=== PATIENT | female | born 1940 | race Caucasian/White ===

== ENCOUNTER 2018-02-19 15:48 | Inpatient (IN) | payer MEDICARE ==
[~2018-02-19] VITALS: Ht 157.5 cm; Wt 90.9 kg
[2018-02-19] MEDS ORDERED: HYDR-971 PO (17:35)
[2018-02-19] MEDS ORDERED: POTA20TA4 PO (17:35)
[2018-02-19] MEDS ORDERED: CALC-30 PO (17:35)
[2018-02-19] MEDS ORDERED: ACET500T68 PO (17:35)
[2018-02-19] MEDS ORDERED: FURO20TA3 PO (17:35)
[2018-02-19] MEDS ORDERED: TOPI25TA7 PO (17:35)
[2018-02-19] MEDS ORDERED: ASPI-630 PO (17:35)
[2018-02-19] MEDS ORDERED: ACET650S11 RC (17:35)
[2018-02-19] MEDS ORDERED: LISI-334 PO (17:35)
[2018-02-19] MEDS ORDERED: OMEP20CA9 PO (17:35)
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
[2018-02-19 17:55] VITALS: BP 129/80
[2018-02-19] MEDS ORDERED: METHYL SALICYLATE/MENTHOL TOPICAL OINTMENT 29GM TUBE. TP PRN (18:30)
[2018-02-19] MEDS ORDERED: MAG HYDROX/AL HYDROX/SIMETH 30 ML ORAL.SUSP PO PRN (18:30)
[2018-02-19] MEDS ORDERED: ACETAMINOPHEN 325 MG TABLET PO PRN (18:30)
[2018-02-19] MEDS ORDERED: MAGNESIUM HYDROXIDE 2,400 MG/30 ML ORAL.SUSP. PO PRN (18:30)
[2018-02-19] MEDS ORDERED: ACETAMINOPHEN 500 MG TABLET PO PRN (19:15)
[2018-02-19] MEDS ORDERED: ACETAMINOPHEN 650 MG SUPP.RECT. PR PRN (19:15)
--- NOTE | 2018-02-19 20:00 | NUR ---
Behavior Intervention Response and Plan: BIRP Note: Behavior: Assumed Care of patient, patient located in Hallway at shift change. Patient exhibited the following behavior Wandering, Interactive, Calm. Brief assessment on rounds of vital signs, medication needs, lab studies, and pain. Treatment plan problems . Intervention: Patient assessed and the following interventions initiated safety checks 15 Minute Checks Cognitive Assessment , Head to toe Assessment , Medications. Response: After interactions and interventions patient responded in the following manner, Disorganized , Compliant ,Cooperative. Continue to assess behaviors and condition will continue to monitor throughout the shift as needed. Patient educated on ADL's, and hand hygiene. Plan: Continue to monitor Master Treatment Plan for patient's progress toward short term goals of Decreased Agitation, Decreased Anxiety, halfway goals to return to previous living setting vs placement. Continue to assess patient for changes in above assessment. Monitor for medication needs, pain, and safety concerns. Hourly rounding performed to ensure safe environment.
--- NOTE | 2018-02-19 20:56 | PDOC ---
Exam Note: Sadiq Note: Please also refer to the separate dictated note~for this date of service dictated separately.~Patient seen individually. Discussed the patient with Nursing staff reviewed the chart.~Reviewed interim history and current functioning. Reviewed vital signs,~Labs/ Radiology~and current medications noted below. Continue current treatment with the changes noted in the dictated addendum note Assessment: Vital Signs: Vital Signs Date Time Temp Pulse Resp B/P (MAP) Pulse Ox O2 Delivery O2 Flow Rate FiO2 02/19/18 17:55 98.0 62 20 129/80 (96) 100 Current Medications: Meds: Current Medications Acetaminophen (Tylenol) 650 mg PRN Q6HRS PRN PO PAIN / TEMP; Start 02/19/18 at 18:30; Stop 02/19/18 at 19:01; Status DC Multi-Ingredient Ointment (Analgesic [place]) 1 argelia PRN QID PRN TP MUSCLE PAIN; Start 02/19/18 at 18:30 Al Hydroxide/Mg Hydroxide (Mylanta Plus Xs) 15 ml PRN AFTMEALHC PRN PO DYSPEPSIA; Start 02/19/18 at 18:30 Magnesium Hydroxide (Milk Of Magnesia) 2,400 mg PRN QHS PRN PO CONSTIPATION; Start 02/19/18 at 18:30 Furosemide (Lasix) 20 mg DAILY PO ; Start 02/20/18 at 09:00 Lisinopril (Prinivil) 20 mg DAILY PO ; Start 02/20/18 at 09:00 Potassium Chloride (Klor-Con) 20 meq DAILY PO ; Start 02/20/18 at 09:00 Acetaminophen (Tylenol) 500 mg PRN Q6HRS PRN PO PAIN / TEMP; Start 02/19/18 at 19:15 Acetaminophen (Tylenol) 650 mg PRN Q6HRS PRN DC PAIN / TEMP; Start 02/19/18 at 19:15 Aspirin (Children'S Aspirin) 81 mg DAILYWBKFT PO ; Start 02/20/18 at 08:00 Calcium/Vitamin D (Oscal D 500mg/ 200uts) 1 tab DAILYWBKFT PO ; Start 02/20/18 at 08:00 Acetaminophen/ Hydrocodone Bitart (Lortab 5/325) 1 tab PRN Q6HRS PRN PO PAIN; Start 02/20/18 at 00:00 Pantoprazole Sodium (Protonix) 40 mg DAILYAC PO ; Start 02/20/18 at 07:30 Topiramate (Topamax) 75 mg BID PO ; Start 02/19/18 at 21:00 Active Scripts Active Reported Acetaminophen 500 Mg Tablet 500 Mg PO PRN Q6HRS PRN Acetaminophen Supp (Acetaminophen) 650 Mg Supp.rect 650 Mg RC PRN Q6HRS PRN [place] 5-325 Tablet (Hydrocodone Bit/Acetaminophen) 1 Each Tablet 1 Tab PO Q6HRS Klor-Con M20 (Potassium Chloride) 20 Meq Tab.er.prt 20 Meq PO DAILY Furosemide 20 Mg Tablet 20 Mg PO DAILY Lisinopril 20 Mg Tablet 20 Mg PO DAILY Calcium 500 + Vit D 400 Tablet (Calcium Carbonate/Vitamin D3) 1 Each Tablet 1 Each PO DAILY Aspirin 81 Mg Tab.chew 81 Mg PO DAILY Omeprazole 20 Mg Capsule.dr 20 Mg PO DAILY Topiramate 25 Mg Tablet 75 Mg PO BID I have reviewed the current psychotropics carefully including drug interactions. Risk benefit ratio favors no change other than as noted in my dictated progress note. KARO SANTOS MD February 19, 2018 20:56
[2018-02-19] MEDS: TOPIRAMATE 25 MG TABLET. PO SCH (21:20)
[2018-02-20] MEDS ORDERED: HYDROcodone/APAP 5/325MG 1 TAB TABLET PO PRN
[2018-02-20 06:46] VITALS: BP 110/53
[2018-02-20 07:39] LABS: ALBUMIN 3.4 g/dL (3.4-5.0); ALBUMIN/GLOBULIN RATIO 0.9 (1.0-1.7); CALCIUM 8.7 mg/dL (8.5-10.1); GFR 53.8; POTASSIUM 4.2 mmol/L (3.5-5.1); TOTAL BILIRUBIN 0.3 mg/dL (0.2-1.0)
[2018-02-20 07:53] LABS: BASO % 1 % (0-3); EOS # 0.2 x10^3/uL (0.0-0.7); EOS % 4 % (0-3); HEMATOCRIT 33.6 % (36.0-47.0); LYMPH # 1.9 x10^3/uL (1.0-4.8); LYMPH % 36 % (24-48); MEAN CORPUSCULAR HEMOGLOBIN 31 pg (25-35); MEAN CORPUSCULAR HGB CONC 33 g/dL (31-37); MEAN CORPUSCULAR VOLUME 95 fL (79-100); MONO # 0.5 x10^3/uL (0.0-1.1); MONO % 9 % (0-9); NEUT # 2.6 x10^3uL (1.8-7.7); NEUT % 50 % (31-73); PLATELET COUNT 158 x10^3/uL (140-400); RED BLOOD COUNT 3.55 x10^6/uL (3.50-5.40); RED CELL DISTRIBUTION WIDTH 14.8 % (11.5-14.5); WHITE BLOOD COUNT 5.1 x10^3/uL (4.0-11.0)
[2018-02-20] MEDS: CALCIUM CARB/VIT D3 500/200 TABLET PO SCH (09:02)
[2018-02-20] MEDS: ASPIRIN 81 MG TAB.CHEW PO SCH (09:03)
[2018-02-20] MEDS: PANTOPRAZOLE 40 MG TABLET. PO SCH (09:03)
[2018-02-20] MEDS: LISINOPRIL 20 MG TABLET PO SCH (09:03)
[2018-02-20] MEDS: POTASSIUM CHLORIDE 20 MEQ TABLET.ER. PO SCH (09:03)
[2018-02-20] MEDS: FUROSEMIDE 20 MG TABLET PO SCH (09:03)
[2018-02-20] MEDS: TOPIRAMATE 25 MG TABLET. PO SCH ×2 (09:04→20:54)
[2018-02-20 13:28] LABS: THYROID STIM HORMONE (TSH) 0.254 uIU/mL (0.358-3.740)
--- NOTE | 2018-02-20 14:10 | NUR ---
Psychosocial Assessment completed w/pt's granddtr, [place]. Pt was born and raised in [place] w/3 siblings. Pt has 1 brother w/Parkinson's. 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 Pt and her first , having 2 children w/him. She then her current named Arsenio and had 2 children w/ him also. Pt has no history of alcohol, substance abuse, SI or HI. Pt began exhibiting memory loss in 2009 when she was diagnosed w/Dementia. 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 Pt transitioned into [facility] in 03/2017 and will return at [facility]. GOALS: medications adjustments to for behavior management. 1. Family support 2. Community support
--- NOTE | 2018-02-20 15:07 | NUR ---
Behavior Intervention Response and Plan: BIRP Note: Behavior: Assumed Care of patient, patient located in Hallway at shift change. Patient exhibited the following behavior Wandering, Interactive, Calm. Brief assessment on rounds of vital signs, medication needs, lab studies, and pain. Treatment plan problems . Intervention: Patient assessed and the following interventions initiated safety checks 15 Minute Checks Cognitive Assessment , Head to toe Assessment , Medications. Response: After interactions and interventions patient responded in the following manner, Disorganized , Compliant ,Calm. Continue to assess behaviors and condition will continue to monitor throughout the shift as needed. Patient educated on ADL's, and hand hygiene. Plan: Continue to monitor Master Treatment Plan for patient's progress toward short term goals of Decreased Agitation, Decreased Anxiety, halfway goals to return to previous living setting vs placement. Continue to assess patient for changes in above assessment. Monitor for medication needs, pain, and safety concerns. Hourly rounding performed to ensure safe environment.
[2018-02-20 16:56] VITALS: BP 124/55
[2018-02-20 19:10] LABS: T3 TOTAL 100 ng/dL (71-180); THYROXINE 6.5 ug/dL (4.5-12.0)
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
--- NOTE | 2018-02-20 23:56 | NUR ---
Behavior Intervention Response and Plan: BIRP Note: Behavior: Assumed Care of patient, patient located in Hallway at shift change. Patient exhibited the following behavior Wandering, Exit Seeking, Anxious. Brief assessment on rounds of vital signs, medication needs, lab studies, and pain. Treatment plan problems . Intervention: Patient assessed and the following interventions initiated safety checks 15 Minute Checks Cognitive Assessment , Medications , Oral Hydration. Response: After interactions and interventions patient responded in the following manner, Wandering , Restless ,Exit Seeking. Continue to assess behaviors and condition will continue to monitor throughout the shift as needed. Patient educated on ADL's, and hand hygiene. Plan: Continue to monitor Master Treatment Plan for patient's progress toward short term goals of Decreased Agitation, Decreased Anxiety, senior living goals to return to previous living setting vs placement. Continue to assess patient for changes in above assessment. Monitor for medication needs, pain, and safety concerns. Hourly rounding performed to ensure safe environment.
[2018-02-21 04:08] LABS: HEMOGLOBIN A1C 5.8 % (4.8-5.6)
[2018-02-21 06:46] VITALS: BP 140/80
[2018-02-21] MEDS: FUROSEMIDE 20 MG TABLET PO SCH (08:55)
[2018-02-21] MEDS: POTASSIUM CHLORIDE 20 MEQ TABLET.ER. PO SCH (08:55)
[2018-02-21] MEDS: TOPIRAMATE 25 MG TABLET. PO SCH ×2 (08:56→20:38)
[2018-02-21] MEDS: ASPIRIN 81 MG TAB.CHEW PO SCH (08:56)
[2018-02-21] MEDS: CALCIUM CARB/VIT D3 500/200 TABLET PO SCH (08:56)
[2018-02-21] MEDS: LISINOPRIL 20 MG TABLET PO SCH (08:56)
[2018-02-21] MEDS: PANTOPRAZOLE 40 MG TABLET. PO SCH (08:56)
[2018-02-21] MEDS: SERTRALINE 25 MG TABLET. PO SCH (08:57)
--- NOTE | 2018-02-21 10:00 | NUR ---
Patient sitting in day room, compliant with medications and cooperative with assessment. Oriented to self only. Has a hard time finding words when asked questions/word salad.
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
--- NOTE | 2018-02-21 13:23 | NUR ---
Patient at the window asking for her watch. When advised watch was in the hospital safe, she said "It's not in the tutu" and walked away. Has been disorganized but cooperative with cares today.
--- NOTE | 2018-02-21 14:14 | NUR ---
Behavior Intervention Response and Plan: BIRP Note: Behavior: Assumed Care of patient, patient located in Hallway at shift change. Patient exhibited the following behavior Wandering, Attention Seeking, Compliant. Brief assessment on rounds of vital signs, medication needs, lab studies, and pain. Treatment plan problems 1 and 2. Intervention: Patient assessed and the following interventions initiated safety checks 15 Minute Checks Medications , Head to toe Assessment , Oral Hydration. Response: After interactions and interventions patient responded in the following manner, Interactive , Disorganized ,Cooperative. Continue to assess behaviors and condition will continue to monitor throughout the shift as needed. Patient educated on ADL's, and hand hygiene. 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 Continue to assess patient for changes in above assessment. Monitor for medication needs, pain, and safety concerns. Hourly rounding performed to ensure safe environment.
--- NOTE | 2018-02-21 15:00 | NUR ---
WEEKLY THERAPEUTIC RECREATION NOTE Date of Admission: 02/19/2018 Date of AT Assessment: TBD Goal aimed: TBD Initial Goal: TBD Weekly progress towards goal: NA Group participation level: minimal Behaviors observed: sits quietly, around group and follows along with exercises, looking for her mother at times, social occasionally and mostly pleasant Plan: meet/ assess Pt.
[2018-02-21 16:49] VITALS: BP 101/51
--- NOTE | 2018-02-21 20:17 | PDOC ---
Exam Note: Sadiq Note: Late entry for date of service February 20, 2018. Please also refer to the separate dictated note~for this date of service dictated separately.~Patient seen individually. Discussed the patient with Nursing staff reviewed the chart.~ Reviewed interim history and current functioning. Reviewed vital signs,~Labs/ Radiology~and current medications noted below. Continue current treatment with the changes noted in the dictated addendum note Assessment: Vital Signs: VS - Last 72 Hours, by Label Date Time Temp Pulse Resp B/P (MAP) Pulse Ox O2 Delivery O2 Flow Rate FiO2 02/21/18 16:49 97.6 63 20 101/51 (68) 98 02/21/18 08:56 67 140/80 02/21/18 06:46 97.3 67 20 140/80 (100) 97 02/20/18 16:56 97.8 66 18 124/55 (78) 99 Room Air 02/20/18 09:03 59 110/53 02/20/18 06:46 97.5 59 20 110/53 (72) 96 02/19/18 17:55 98.0 62 20 129/80 (96) 100 Vital Signs Date Time Temp Pulse Resp B/P (MAP) Pulse Ox O2 Delivery O2 Flow Rate FiO2 02/21/18 16:49 97.6 63 20 101/51 (68) 98 02/20/18 16:56 Room Air I&O Intake and Output 02/21/18 07:00 Intake Total 1200 ml Balance 1200 ml Intake Oral 1200 ml Current Medications: Meds: Current Medications Acetaminophen (Tylenol) 650 mg PRN Q6HRS PRN PO PAIN / TEMP; Start 02/19/18 at 18:30; Stop 02/19/18 at 19:01; Status DC Multi-Ingredient Ointment (Analgesic [place]) 1 argelia PRN QID PRN TP MUSCLE PAIN; Start 02/19/18 at 18:30 Al Hydroxide/Mg Hydroxide (Mylanta Plus Xs) 15 ml PRN AFTMEALHC PRN PO DYSPEPSIA; Start 02/19/18 at 18:30 Magnesium Hydroxide (Milk Of Magnesia) 2,400 mg PRN QHS PRN PO CONSTIPATION; Start 02/19/18 at 18:30 Furosemide (Lasix) 20 mg DAILY PO Last administered on 02/21/18at 08:55; Start 02/20/18 at 09:00 Lisinopril (Prinivil) 20 mg DAILY PO Last administered on 02/21/18at 08:56; Start 02/20/18 at 09:00 Potassium Chloride (Klor-Con) 20 meq DAILY PO Last administered on 02/21/18at 08 :55; Start 02/20/18 at 09:00 Acetaminophen (Tylenol) 500 mg PRN Q6HRS PRN PO PAIN / TEMP; Start 02/19/18 at 19:15 Acetaminophen (Tylenol) 650 mg PRN Q6HRS PRN DE PAIN / TEMP; Start 02/19/18 at 19:15 Aspirin (Children'S Aspirin) 81 mg DAILYWBKFT PO Last administered on at 08:56; Start 02/20/18 at 08:00 Calcium/Vitamin D (Oscal D 500mg/ 200uts) 1 tab DAILYWBKFT PO Last administered on 02/21/18at 08:56; Start 02/20/18 at 08:00 Acetaminophen/ Hydrocodone Bitart (Lortab 5/325) 1 tab PRN Q6HRS PRN PO PAIN; Start 02/20/18 at 00:00 Pantoprazole Sodium (Protonix) 40 mg DAILYAC PO Last administered on 02/21/18at 08:56; Start 02/20/18 at 07:30 Topiramate (Topamax) 75 mg BID PO Last administered on 02/21/18at 08:56; Start 02/19/18 at 21:00 Sertraline HCl (Zoloft) 25 mg DAILY PO Last administered on 02/21/18at 08:57; Start 02/21/18 at 09:00 Vitamin D (Vitamin D3) 50,000 unit WEEKLY PO ; Start 02/21/18 at 19:00 Atorvastatin Calcium (Lipitor) 10 mg QHS PO ; Start 02/21/18 at 21:00 Mirtazapine (Remeron) 7.5 mg QHS PO ; Start 02/21/18 at 21:00 Active Scripts Active Reported Acetaminophen 500 Mg Tablet 500 Mg PO PRN Q6HRS PRN Acetaminophen Supp (Acetaminophen) 650 Mg Supp.rect 650 Mg RC PRN Q6HRS PRN [place] 5-325 Tablet (Hydrocodone Bit/Acetaminophen) 1 Each Tablet 1 Tab PO Q6HRS Klor-Con M20 (Potassium Chloride) 20 Meq Tab.er.prt 20 Meq PO DAILY Furosemide 20 Mg Tablet 20 Mg PO DAILY Lisinopril 20 Mg Tablet 20 Mg PO DAILY Calcium 500 + Vit D 400 Tablet (Calcium Carbonate/Vitamin D3) 1 Each Tablet 1 Each PO DAILY Aspirin 81 Mg Tab.chew 81 Mg PO DAILY Omeprazole 20 Mg Capsule.dr 20 Mg PO DAILY Topiramate 25 Mg Tablet 75 Mg PO BID I have reviewed the current psychotropics carefully including drug interactions. Risk benefit ratio favors no change other than as noted in my dictated progress note. Diagnosis: Problems: (1) Anxiety disorder (2) Dementia in Alzheimer's disease with delusions (3) Dementia in Alzheimer's disease with depression (4) Dementia, vascular, with delusions (5) Dementia, vascular, with depression (6) Impulse control disorder KARO SANTOS MD February 21, 2018 20:17
[2018-02-21] MEDS: ATORVASTATIN CALCIUM 10 MG TABLET. PO SCH (20:38)
[2018-02-21] MEDS: MIRTAZAPINE 7.5 MG TABLET. PO SCH (20:38)
[2018-02-21] MEDS: CHOLECALCIFEROL (VITAMIN D3) 50,000 UNIT CAPSULE PO SCH (20:38)
--- NOTE | 2018-02-21 20:41 | PDOC ---
Exam Note: Sadiq Note: Please also refer to the separate dictated note~for this date of service dictated separately.~Patient seen individually. Discussed the patient with Nursing staff reviewed the chart.~Reviewed interim history and current functioning. Reviewed vital signs,~Labs/ Radiology~and current medications noted below. Continue current treatment with the changes noted in the dictated addendum note Assessment: Vital Signs: Vital Signs Date Time Temp Pulse Resp B/P (MAP) Pulse Ox O2 Delivery O2 Flow Rate FiO2 02/21/18 16:49 97.6 63 20 101/51 (68) 98 02/20/18 16:56 Room Air I&O Intake and Output 02/21/18 07:00 Intake Total 1200 ml Balance 1200 ml Intake Oral 1200 ml Current Medications: Meds: Current Medications Acetaminophen (Tylenol) 650 mg PRN Q6HRS PRN PO PAIN / TEMP; Start 02/19/18 at 18:30; Stop 02/19/18 at 19:01; Status DC Multi-Ingredient Ointment (Analgesic [place]) 1 argelia PRN QID PRN TP MUSCLE PAIN; Start 02/19/18 at 18:30 Al Hydroxide/Mg Hydroxide (Mylanta Plus Xs) 15 ml PRN AFTMEALHC PRN PO DYSPEPSIA; Start 02/19/18 at 18:30 Magnesium Hydroxide (Milk Of Magnesia) 2,400 mg PRN QHS PRN PO CONSTIPATION; Start 02/19/18 at 18:30 Furosemide (Lasix) 20 mg DAILY PO Last administered on 02/21/18at 08:55; Start 02/20/18 at 09:00 Lisinopril (Prinivil) 20 mg DAILY PO Last administered on 02/21/18at 08:56; Start 02/20/18 at 09:00 Potassium Chloride (Klor-Con) 20 meq DAILY PO Last administered on 02/21/18at 08 :55; Start 02/20/18 at 09:00 Acetaminophen (Tylenol) 500 mg PRN Q6HRS PRN PO PAIN / TEMP; Start 02/19/18 at 19:15 Acetaminophen (Tylenol) 650 mg PRN Q6HRS PRN [place] PAIN / TEMP; Start 02/19/18 at 19:15 Aspirin (Children'S Aspirin) 81 mg DAILYWBKFT PO Last administered on at 08:56; Start 02/20/18 at 08:00 Calcium/Vitamin D (Oscal D 500mg/ 200uts) 1 tab DAILYWBKFT PO Last administered on 02/21/18 08:56; Start 02/20/18 at 08:00 Acetaminophen/ Hydrocodone Bitart (Lortab 5/325) 1 tab PRN Q6HRS PRN PO PAIN; Start 02/20/18 at 00:00 Pantoprazole Sodium (Protonix) 40 mg DAILYAC PO Last administered on 02/21/18 08:56; Start 02/20/18 at 07:30 Topiramate (Topamax) 75 mg BID PO Last administered on 02/21/18 20:38; Start 02/19/18 at 21:00 Sertraline HCl (Zoloft) 25 mg DAILY PO Last administered on 02/21/18 08:57; Start 02/21/18 at 09:00 Vitamin D (Vitamin D3) 50,000 unit WEEKLY PO Last administered on 02/21/18 20: 38; Start 02/21/18 at 19:00 Atorvastatin Calcium (Lipitor) 10 mg QHS PO Last administered on 02/21/18 20: 38; Start 02/21/18 at 21:00 Mirtazapine (Remeron) 7.5 mg QHS PO Last administered on 02/21/18 20:38; Start 02/21/18 at 21:00 Active Scripts Active Reported Acetaminophen 500 Mg Tablet 500 Mg PO PRN Q6HRS PRN Acetaminophen Supp (Acetaminophen) 650 Mg Supp.rect 650 Mg RC PRN Q6HRS PRN [place] 5-325 Tablet (Hydrocodone Bit/Acetaminophen) 1 Each Tablet 1 Tab PO Q6HRS Klor-Con M20 (Potassium Chloride) 20 Meq Tab.er.prt 20 Meq PO DAILY Furosemide 20 Mg Tablet 20 Mg PO DAILY Lisinopril 20 Mg Tablet 20 Mg PO DAILY Calcium 500 + Vit D 400 Tablet (Calcium Carbonate/Vitamin D3) 1 Each Tablet 1 Each PO DAILY Aspirin 81 Mg Tab.chew 81 Mg PO DAILY Omeprazole 20 Mg Capsule.dr 20 Mg PO DAILY Topiramate 25 Mg Tablet 75 Mg PO BID I have reviewed the current psychotropics carefully including drug interactions. Risk benefit ratio favors no change other than as noted in my dictated progress note. Diagnosis: Problems: (1) Anxiety disorder (2) Dementia in Alzheimer's disease with delusions (3) Dementia in Alzheimer's disease with depression (4) Dementia, vascular, with delusions (5) Dementia, vascular, with depression (6) Impulse control disorder KARO SANTOS MD February 21, 2018 20:41
--- NOTE | 2018-02-21 23:11 | NUR ---
Nursing Note Patient found in day room at beginning of shift. Patient calm and compliant with medications and assessment. Patient alert and oriented to self only. Patient interactive, compliant and social at this time. Patient currently laying in bed sleeping.
[2018-02-22 05:56] VITALS: BP 130/80
[2018-02-22] MEDS: CALCIUM CARB/VIT D3 500/200 TABLET PO SCH (09:09)
[2018-02-22] MEDS: FUROSEMIDE 20 MG TABLET PO SCH (09:09)
[2018-02-22] MEDS: TOPIRAMATE 25 MG TABLET. PO SCH ×2 (09:09→19:59)
[2018-02-22] MEDS: POTASSIUM CHLORIDE 20 MEQ TABLET.ER. PO SCH (09:09)
[2018-02-22] MEDS: SERTRALINE 25 MG TABLET. PO SCH (09:10)
[2018-02-22] MEDS: LISINOPRIL 20 MG TABLET PO SCH (09:10)
[2018-02-22] MEDS: ASPIRIN 81 MG TAB.CHEW PO SCH (09:10)
[2018-02-22] MEDS: PANTOPRAZOLE 40 MG TABLET. PO SCH (09:10)
--- NOTE | 2018-02-22 10:00 | NUR ---
Behavior Intervention Response and Plan: BIRP Note: Behavior: Assumed Care of patient, patient located in Hallway at shift change. Patient exhibited the following behavior Wandering, Restless, Disorganized. Brief assessment on rounds of vital signs, medication needs, lab studies, and pain. Treatment plan problems 1 and 2. Intervention: Patient assessed and the following interventions initiated safety checks 15 Minute Checks Cognitive Assessment , Head to toe Assessment , Medications. Response: After interactions and interventions patient responded in the following manner, Compliant , Wandering ,Cooperative. Continue to assess behaviors and condition will continue to monitor throughout the shift as needed. Patient educated on ADL's, and hand hygiene. Plan: Continue to monitor Master Treatment Plan for patient's progress toward short term goals of No harm To self/ others, Decreased Aggression, extermination supervisor goals to return to previous living setting vs placement. Continue to assess patient for changes in above assessment. Monitor for medication needs, pain, and safety concerns. Hourly rounding performed to ensure safe environment.
--- NOTE | 2018-02-22 10:15 | NUR ---
Attempted to meet and complete Activity Therapy Assessment; however, Pt. was asleep.
--- NOTE | 2018-02-22 11:04 | NUR ---
Patient seemed more confused today, unable to figure out what to do with the cup of medicine. Assisted patient getting medications into her mouth a few at a time using a spoon. Compliant with medications. Patient oriented only to self.
--- NOTE | 2018-02-22 11:06 | NUR ---
Patient taking paper trash bags from the rooms. Wandering in the hallway. Oriented only to self.
[2018-02-22 16:16] VITALS: BP 106/70
--- NOTE | 2018-02-22 17:22 | NUR ---
patient exit seeking and agitated. Yelling at peers. Given PRN zyprexa 2.5mg for agitation per order. Will continue to monitor.
[2018-02-22] MEDS: ATORVASTATIN CALCIUM 10 MG TABLET. PO SCH (19:58)
[2018-02-22] MEDS: MIRTAZAPINE 7.5 MG TABLET. PO SCH (19:58)
--- NOTE | 2018-02-22 20:57 | PDOC ---
Exam Note: Sadiq Note: Please also refer to the separate dictated note~for this date of service dictated separately.~Patient seen individually. Discussed the patient with Nursing staff reviewed the chart.~Reviewed interim history and current functioning. Reviewed vital signs,~Labs/ Radiology~and current medications noted below. Continue current treatment with the changes noted in the dictated addendum note Assessment: Vital Signs: Vital Signs Date Time Temp Pulse Resp B/P (MAP) Pulse Ox O2 Delivery O2 Flow Rate FiO2 02/22/18 16:16 97.8 66 18 106/70 (82) 100 02/20/18 16:56 Room Air I&O Intake and Output 02/22/18 07:00 Intake Total 1080 ml Balance 1080 ml Intake Oral 1080 ml Current Medications: Meds: Current Medications Acetaminophen (Tylenol) 650 mg PRN Q6HRS PRN PO PAIN / TEMP; Start 02/19/18 at 18:30; Stop 02/19/18 at 19:01; Status DC Multi-Ingredient Ointment (Analgesic [place]) 1 argelia PRN QID PRN TP MUSCLE PAIN; Start 02/19/18 at 18:30 Al Hydroxide/Mg Hydroxide (Mylanta Plus Xs) 15 ml PRN AFTMEALHC PRN PO DYSPEPSIA; Start 02/19/18 at 18:30 Magnesium Hydroxide (Milk Of Magnesia) 2,400 mg PRN QHS PRN PO CONSTIPATION; Start 02/19/18 at 18:30 Furosemide (Lasix) 20 mg DAILY PO Last administered on 02/22/18at 09:09; Start 02/20/18 at 09:00 Lisinopril (Prinivil) 20 mg DAILY PO Last administered on 02/22/18at 09:10; Start 02/20/18 at 09:00 Potassium Chloride (Klor-Con) 20 meq DAILY PO Last administered on 02/22/18at 09 :09; Start 02/20/18 at 09:00 Acetaminophen (Tylenol) 500 mg PRN Q6HRS PRN PO PAIN / TEMP; Start 02/19/18 at 19:15 Acetaminophen (Tylenol) 650 mg PRN Q6HRS PRN [place] PAIN / TEMP; Start 02/19/18 at 19:15 Aspirin (Children'S Aspirin) 81 mg DAILYWBKFT PO Last administered on at 09:10; Start 02/20/18 at 08:00 Calcium/Vitamin D (Oscal D 500mg/ 200uts) 1 tab DAILYWBKFT PO Last administered on 02/22/18at 09:09; Start 02/20/18 at 08:00 Acetaminophen/ Hydrocodone Bitart (Lortab 5/325) 1 tab PRN Q6HRS PRN PO PAIN; Start 02/20/18 at 00:00 Pantoprazole Sodium (Protonix) 40 mg DAILYAC PO Last administered on 02/22/18 09:10; Start 02/20/18 at 07:30 Topiramate (Topamax) 75 mg BID PO Last administered on 02/22/18 19:59; Start 02/19/18 at 21:00 Sertraline HCl (Zoloft) 25 mg DAILY PO Last administered on 02/22/18 09:10; Start 02/21/18 at 09:00; Stop 02/24/18 at 08:00 Vitamin D (Vitamin D3) 50,000 unit WEEKLY PO Last administered on 02/21/18at 20: 38; Start 02/21/18 at 19:00 Atorvastatin Calcium (Lipitor) 10 mg QHS PO Last administered on 02/22/18at 19: 58; Start 02/21/18 at 21:00 Mirtazapine (Remeron) 7.5 mg QHS PO Last administered on 02/22/18 19:58; Start 02/21/18 at 21:00 Sertraline HCl (Zoloft) 50 mg DAILY PO ; Start 02/23/18 at 09:00 Olanzapine (ZyPREXA ZYDIS) 2.5 mg PRN Q2HR PRN PO agitation/psychosis; Start at 15:45 Active Scripts Active Reported Acetaminophen 500 Mg Tablet 500 Mg PO PRN Q6HRS PRN Acetaminophen Supp (Acetaminophen) 650 Mg Supp.rect 650 Mg RC PRN Q6HRS PRN [place] 5-325 Tablet (Hydrocodone Bit/Acetaminophen) 1 Each Tablet 1 Tab PO Q6HRS Klor-Con M20 (Potassium Chloride) 20 Meq Tab.er.prt 20 Meq PO DAILY Furosemide 20 Mg Tablet 20 Mg PO DAILY Lisinopril 20 Mg Tablet 20 Mg PO DAILY Calcium 500 + Vit D 400 Tablet (Calcium Carbonate/Vitamin D3) 1 Each Tablet 1 Each PO DAILY Aspirin 81 Mg Tab.chew 81 Mg PO DAILY Omeprazole 20 Mg Capsule.dr 20 Mg PO DAILY Topiramate 25 Mg Tablet 75 Mg PO BID I have reviewed the current psychotropics carefully including drug interactions. Risk benefit ratio favors no change other than as noted in my dictated progress note. Diagnosis: Problems: (1) Anxiety disorder (2) Dementia in Alzheimer's disease with delusions (3) Dementia in Alzheimer's disease with depression (4) Dementia, vascular, with delusions (5) Dementia, vascular, with depression (6) Impulse control disorder KARO SANTOS MD February 22, 2018 20:57
[2018-02-23] MEDS: FUROSEMIDE 20 MG TABLET PO SCH (08:44)
[2018-02-23] MEDS: TOPIRAMATE 25 MG TABLET. PO SCH ×2 (08:44→19:58)
[2018-02-23] MEDS: SERTRALINE 25 MG TABLET. PO SCH (08:44)
[2018-02-23] MEDS: POTASSIUM CHLORIDE 20 MEQ TABLET.ER. PO SCH (08:45)
[2018-02-23] MEDS: PANTOPRAZOLE 40 MG TABLET. PO SCH (08:46)
[2018-02-23] MEDS: CALCIUM CARB/VIT D3 500/200 TABLET PO SCH (08:46)
[2018-02-23] MEDS: ASPIRIN 81 MG TAB.CHEW PO SCH (08:46)
[2018-02-23] MEDS: SERTRALINE 50 MG TABLET. PO SCH (08:55)
[2018-02-23 08:57] VITALS: BP 163/73
[2018-02-23] MEDS: LISINOPRIL 20 MG TABLET PO SCH (08:58)
--- NOTE | 2018-02-23 11:00 | NUR ---
patient agitated in hallway. Redirected to day room.
--- NOTE | 2018-02-23 12:16 | NUR ---
Behavior Intervention Response and Plan: BIRP Note: Behavior: Assumed Care of patient, patient located in Hallway at shift change. Patient exhibited the following behavior Wandering, Restless, Disorganized. Brief assessment on rounds of vital signs, medication needs, lab studies, and pain. Treatment plan problems 1 and 2. Intervention: Patient assessed and the following interventions initiated safety checks 15 Minute Checks Cognitive Assessment , Head to toe Assessment , Medications. Response: After interactions and interventions patient responded in the following manner, Disorganized , Compliant ,Cooperative. Continue to assess behaviors and condition will continue to monitor throughout the shift as needed. Patient educated on ADL's, and hand hygiene. 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 Continue to assess patient for changes in above assessment. Monitor for medication needs, pain, and safety concerns. Hourly rounding performed to ensure safe environment.
--- NOTE | 2018-02-23 15:20 | NUR ---
ACTIVITY THERAPY ASSESSMENT Completed based on observation and interview. Pt. was walking the halls but agreeable to speak with LINUX SYSTEM ADMINISTRATOR. She was talkative; however, did not make complete sense when speaking. She appeared tired and rubbed her legs. She was distracted easily and often answered questions asked to other patients. She stated she was 30 years old with a son, Yanick who was 5 years old. She often wanders and can be exit seeking. Initial goal aimed to increase engagement and socialization: Pt. will participate in at least three groups (besides coffee/orientation) before discharge). Addendum: 03/15/18 at 1056 by YASMINE JORGENSEN ACT Changed goal 03/15: Pt. will participate in at least one group a day (beside coffee/orientation).
[2018-02-23 16:31] VITALS: BP 114/74
[2018-02-23] MEDS: ATORVASTATIN CALCIUM 10 MG TABLET. PO SCH (19:58)
[2018-02-23] MEDS: MIRTAZAPINE 7.5 MG TABLET. PO SCH (19:58)
--- NOTE | 2018-02-23 20:01 | PDOC ---
Exam Note: Sadiq Note: Please also refer to the separate dictated note~for this date of service dictated separately.~Patient seen individually. Discussed the patient with Nursing staff reviewed the chart.~Reviewed interim history and current functioning. Reviewed vital signs,~Labs/ Radiology~and current medications noted below. Continue current treatment with the changes noted in the dictated addendum note Assessment: Vital Signs: Vital Signs Date Time Temp Pulse Resp B/P (MAP) Pulse Ox O2 Delivery O2 Flow Rate FiO2 02/23/18 16:31 97.8 71 20 114/74 (87) 97 Room Air I&O Intake and Output 02/23/18 07:00 Intake Total 1320 ml Balance 1320 ml Intake Oral 1320 ml Current Medications: Meds: Current Medications Acetaminophen (Tylenol) 650 mg PRN Q6HRS PRN PO PAIN / TEMP; Start 02/19/18 at 18:30; Stop 02/19/18 at 19:01; Status DC Multi-Ingredient Ointment (Analgesic [place]) 1 argelia PRN QID PRN TP MUSCLE PAIN; Start 02/19/18 at 18:30 Al Hydroxide/Mg Hydroxide (Mylanta Plus Xs) 15 ml PRN AFTMEALHC PRN PO DYSPEPSIA; Start 02/19/18 at 18:30 Magnesium Hydroxide (Milk Of Magnesia) 2,400 mg PRN QHS PRN PO CONSTIPATION; Start 02/19/18 at 18:30 Furosemide (Lasix) 20 mg DAILY PO Last administered on 02/23/18at 08:44; Start 02/20/18 at 09:00 Lisinopril (Prinivil) 20 mg DAILY PO Last administered on 02/23/18at 08:58; Start 02/20/18 at 09:00 Potassium Chloride (Klor-Con) 20 meq DAILY PO Last administered on 02/23/18at 08 :45; Start 02/20/18 at 09:00 Acetaminophen (Tylenol) 500 mg PRN Q6HRS PRN PO PAIN / TEMP; Start 02/19/18 at 19:15 Acetaminophen (Tylenol) 650 mg PRN Q6HRS PRN [place] PAIN / TEMP; Start 02/19/18 at 19:15 Aspirin (Children'S Aspirin) 81 mg DAILYWBKFT PO Last administered on at 08:46; Start 02/20/18 at 08:00 Calcium/Vitamin D (Oscal D 500mg/ 200uts) 1 tab DAILYWBKFT PO Last administered on 02/23/18 08:46; Start 02/20/18 at 08:00 Acetaminophen/ Hydrocodone Bitart (Lortab 5/325) 1 tab PRN Q6HRS PRN PO PAIN; Start 02/20/18 at 00:00 Pantoprazole Sodium (Protonix) 40 mg DAILYAC PO Last administered on 02/23/18 08:46; Start 02/20/18 at 07:30 Topiramate (Topamax) 75 mg BID PO Last administered on 02/23/18 19:58; Start 02/19/18 at 21:00 Sertraline HCl (Zoloft) 25 mg DAILY PO Last administered on 02/23/18 08:44; Start 02/21/18 at 09:00; Stop 02/24/18 at 08:00 Vitamin D (Vitamin D3) 50,000 unit WEEKLY PO Last administered on 02/21/18at 20: 38; Start 02/21/18 at 19:00 Atorvastatin Calcium (Lipitor) 10 mg QHS PO Last administered on 02/23/18 19: 58; Start 02/21/18 at 21:00 Mirtazapine (Remeron) 7.5 mg QHS PO Last administered on 02/23/18 19:58; Start 02/21/18 at 21:00 Sertraline HCl (Zoloft) 50 mg DAILY PO Last administered on 02/23/18 08:55; Start 02/23/18 at 09:00 Olanzapine (ZyPREXA ZYDIS) 2.5 mg PRN Q2HR PRN PO agitation/psychosis; Start at 15:45 Active Scripts Active Reported Acetaminophen 500 Mg Tablet 500 Mg PO PRN Q6HRS PRN Acetaminophen Supp (Acetaminophen) 650 Mg Supp.rect 650 Mg RC PRN Q6HRS PRN [place] 5-325 Tablet (Hydrocodone Bit/Acetaminophen) 1 Each Tablet 1 Tab PO Q6HRS Klor-Con M20 (Potassium Chloride) 20 Meq Tab.er.prt 20 Meq PO DAILY Furosemide 20 Mg Tablet 20 Mg PO DAILY Lisinopril 20 Mg Tablet 20 Mg PO DAILY Calcium 500 + Vit D 400 Tablet (Calcium Carbonate/Vitamin D3) 1 Each Tablet 1 Each PO DAILY Aspirin 81 Mg Tab.chew 81 Mg PO DAILY Omeprazole 20 Mg Capsule.dr 20 Mg PO DAILY Topiramate 25 Mg Tablet 75 Mg PO BID I have reviewed the current psychotropics carefully including drug interactions. Risk benefit ratio favors no change other than as noted in my dictated progress note. Diagnosis: Problems: (1) Anxiety disorder (2) Dementia in Alzheimer's disease with delusions (3) Dementia in Alzheimer's disease with depression (4) Dementia, vascular, with delusions (5) Dementia, vascular, with depression (6) Impulse control disorder KARO SANTOS MD February 23, 2018 20:00
--- NOTE | 2018-02-23 22:19 | PN ---
DATE: 02/22/2018 This is a late entry for 02/22/2018 and the covers elements not covered in my initial note of 02/22/2018. SUBJECTIVE: I met with the patient in the evening. She slept 6 hours previous evening, gets agitated intermittently, received Zyprexa, which helped, but she was yelling at peers. REVIEW OF SYSTEMS: No CV, , pulmonary, eye, ENT system symptoms on review. Reliability poor. MENTAL STATUS EXAM: Oriented to herself. Insight, judgment, recent and remote memory, attention, concentration, fund of knowledge poor, consistent with her diagnosis mentioned in my initial note. PLAN: Continue current psychotropics unchanged and Zyprexa is added p.r.n. for yelling at peers. MAN Michelle SANTOS MD DR: JERILYN/tommy JOB#: [id number] / [id number]
--- NOTE | 2018-02-23 22:22 | PN ---
DATE: 02/21/2018 PSYCHIATRIC PROGRESS NOTE This is a late entry 02/21/2018 covers elements not covered in my initial note of 02/21/2018. I met with the patient in the evening. The patient slept 3-3/4 hours last night, disorganized, cooperative, resistive to medications, exit seeking. REVIEW OF SYSTEMS: No CV, , pulmonary, eye, ENT system symptoms on review. Reliability poor. MENTAL STATUS EXAM: Oriented to herself. Insight, judgment, recent and remote memory, attention, concentration, fund of knowledge poor, consistent with her diagnosis mentioned in my initial note. PLAN: Continue current psychotropics, may need to adjust further as clinically indicated. We will go ahead and add Remeron 7.5 mg p.o. at bedtime, should help with her insomnia as well. MAN Michelle SANTOS MD DR: JERILYN/tommy JOB#: [id number] / [id number]
--- NOTE | 2018-02-24 00:36 | NUR ---
Nursing Note Pt wanders confused not even alert to name. Compliant with meds and assessment. Will follow commands when asked to deep breathe she will and stop rambling. Compliant with ADL's no agitation this PM.
[2018-02-24 06:34] VITALS: BP 101/58
[2018-02-24] MEDS: POTASSIUM CHLORIDE 20 MEQ TABLET.ER. PO SCH (07:59)
[2018-02-24] MEDS: SERTRALINE 50 MG TABLET. PO SCH (07:59)
[2018-02-24] MEDS: ASPIRIN 81 MG TAB.CHEW PO SCH (07:59)
[2018-02-24] MEDS: LISINOPRIL 20 MG TABLET PO SCH (07:59)
[2018-02-24] MEDS: FUROSEMIDE 20 MG TABLET PO SCH (08:00)
[2018-02-24] MEDS: PANTOPRAZOLE 40 MG TABLET. PO SCH (08:00)
[2018-02-24] MEDS: TOPIRAMATE 25 MG TABLET. PO SCH ×2 (08:00→20:39)
[2018-02-24] MEDS: CALCIUM CARB/VIT D3 500/200 TABLET PO SCH (08:00)
--- NOTE | 2018-02-24 11:16 | NUR ---
Behavior Intervention Response and Plan: BIRP Note: Behavior: Assumed Care of patient, patient located in Dining Room at shift change. Patient exhibited the following behavior Restless, Interactive, Disorganized. Brief assessment on rounds of vital signs, medication needs, lab studies, and pain. Treatment plan problems . Intervention: Patient assessed and the following interventions initiated safety checks 15 Minute Checks Head to toe Assessment , Cognitive Assessment , Medications. Response: After interactions and interventions patient responded in the following manner, Compliant , Cooperative ,Able to Focus on Task. Continue to assess behaviors and condition will continue to monitor throughout the shift as needed. Patient educated on ADL's, and hand hygiene. Plan: Continue to monitor Master Treatment Plan for patient's progress toward short term goals of Improved Mood, Decreased Agitation, manager intermediate goals to return to previous living setting vs placement. Continue to assess patient for changes in above assessment. Monitor for medication needs, pain, and safety concerns. Hourly rounding performed to ensure safe environment.
[2018-02-24 16:19] VITALS: BP 111/66
[2018-02-24] MEDS: MIRTAZAPINE 7.5 MG TABLET. PO SCH (20:39)
[2018-02-24] MEDS: ATORVASTATIN CALCIUM 10 MG TABLET. PO SCH (20:39)
--- NOTE | 2018-02-24 22:58 | NUR ---
Behavior Intervention Response and Plan: BIRP Note: Behavior: Assumed Care of patient, patient located in Dining Room at shift change. Patient exhibited the following behavior Wandering, Interactive, Calm. Brief assessment on rounds of vital signs, medication needs, lab studies, and pain. Treatment plan problems 1. Intervention: Patient assessed and the following interventions initiated safety checks 15 Minute Checks Call mondragon in reach , Cognitive Assessment , Head to toe Assessment. Response: After interactions and interventions patient responded in the following manner, Wandering , Interactive ,Calm. Continue to assess behaviors and condition will continue to monitor throughout the shift as needed. Patient educated on ADL's, and hand hygiene. Plan: Continue to monitor Master Treatment Plan for patient's progress toward short term goals of Decreased Agitation, Decreased Anxiety, intermediate designer goals to return to previous living setting vs placement. Continue to assess patient for changes in above assessment. Monitor for medication needs, pain, and safety concerns. Hourly rounding performed to ensure safe environment.
--- NOTE | 2018-02-24 23:30 | PDOC ---
Exam Note: Sadiq Note: Please also refer to the separate dictated note~for this date of service dictated separately.~Patient seen individually. Discussed the patient with Nursing staff reviewed the chart.~Reviewed interim history and current functioning. Reviewed vital signs,~Labs/ Radiology~and current medications noted below. Continue current treatment with the changes noted in the dictated addendum note Assessment: Vital Signs: Vital Signs Date Time Temp Pulse Resp B/P (MAP) Pulse Ox O2 Delivery O2 Flow Rate FiO2 02/24/18 16:19 98.5 77 20 111/66 (81) 96 Room Air I&O Intake and Output 02/24/18 07:00 Intake Total 960 ml Balance 960 ml Intake Oral 960 ml Current Medications: Meds: Current Medications Acetaminophen (Tylenol) 650 mg PRN Q6HRS PRN PO PAIN / TEMP; Start 02/19/18 at 18:30; Stop 02/19/18 at 19:01; Status DC Multi-Ingredient Ointment (Analgesic [place]) 1 argelia PRN QID PRN TP MUSCLE PAIN; Start 02/19/18 at 18:30 Al Hydroxide/Mg Hydroxide (Mylanta Plus Xs) 15 ml PRN AFTMEALHC PRN PO DYSPEPSIA; Start 02/19/18 at 18:30 Magnesium Hydroxide (Milk Of Magnesia) 2,400 mg PRN QHS PRN PO CONSTIPATION; Start 02/19/18 at 18:30 Furosemide (Lasix) 20 mg DAILY PO Last administered on 02/24/18at 08:00; Start 02/20/18 at 09:00 Lisinopril (Prinivil) 20 mg DAILY PO Last administered on 02/24/18at 07:59; Start 02/20/18 at 09:00 Potassium Chloride (Klor-Con) 20 meq DAILY PO Last administered on 02/24/18at 07 :59; Start 02/20/18 at 09:00 Acetaminophen (Tylenol) 500 mg PRN Q6HRS PRN PO PAIN / TEMP; Start 02/19/18 at 19:15 Acetaminophen (Tylenol) 650 mg PRN Q6HRS PRN [place] PAIN / TEMP; Start 02/19/18 at 19:15 Aspirin (Children'S Aspirin) 81 mg DAILYWBKFT PO Last administered on at 07:59; Start 02/20/18 at 08:00 Calcium/Vitamin D (Oscal D 500mg/ 200uts) 1 tab DAILYWBKFT PO Last administered on 02/24/18at 08:00; Start 02/20/18 at 08:00 Acetaminophen/ Hydrocodone Bitart (Lortab 5/325) 1 tab PRN Q6HRS PRN PO PAIN; Start 02/20/18 at 00:00 Pantoprazole Sodium (Protonix) 40 mg DAILYAC PO Last administered on 02/24/18at 08:00; Start 02/20/18 at 07:30 Topiramate (Topamax) 75 mg BID PO Last administered on 02/24/18 20:39; Start 02/19/18 at 21:00 Sertraline HCl (Zoloft) 25 mg DAILY PO Last administered on 02/23/18at 08:44; Start 02/21/18 at 09:00; Stop 02/24/18 at 08:01; Status DC Vitamin D (Vitamin D3) 50,000 unit WEEKLY PO Last administered on 02/21/18at 20: 38; Start 02/21/18 at 19:00 Atorvastatin Calcium (Lipitor) 10 mg QHS PO Last administered on 02/24/18at 20: 39; Start 02/21/18 at 21:00 Mirtazapine (Remeron) 7.5 mg QHS PO Last administered on 02/24/18at 20:39; Start 02/21/18 at 21:00 Sertraline HCl (Zoloft) 50 mg DAILY PO Last administered on 02/24/18at 07:59; Start 02/23/18 at 09:00 Olanzapine (ZyPREXA ZYDIS) 2.5 mg PRN Q2HR PRN PO agitation/psychosis; Start at 15:45 Active Scripts Active Reported Acetaminophen 500 Mg Tablet 500 Mg PO PRN Q6HRS PRN Acetaminophen Supp (Acetaminophen) 650 Mg Supp.rect 650 Mg RC PRN Q6HRS PRN [place] 5-325 Tablet (Hydrocodone Bit/Acetaminophen) 1 Each Tablet 1 Tab PO Q6HRS Klor-Con M20 (Potassium Chloride) 20 Meq Tab.er.prt 20 Meq PO DAILY Furosemide 20 Mg Tablet 20 Mg PO DAILY Lisinopril 20 Mg Tablet 20 Mg PO DAILY Calcium 500 + Vit D 400 Tablet (Calcium Carbonate/Vitamin D3) 1 Each Tablet 1 Each PO DAILY Aspirin 81 Mg Tab.chew 81 Mg PO DAILY Omeprazole 20 Mg Capsule.dr 20 Mg PO DAILY Topiramate 25 Mg Tablet 75 Mg PO BID I have reviewed the current psychotropics carefully including drug interactions. Risk benefit ratio favors no change other than as noted in my dictated progress note. Diagnosis: Problems: (1) Anxiety disorder (2) Dementia in Alzheimer's disease with delusions (3) Dementia in Alzheimer's disease with depression (4) Dementia, vascular, with delusions (5) Dementia, vascular, with depression (6) Impulse control disorder KARO SANTOS MD February 24, 2018 23:30
[2018-02-25 06:28] VITALS: BP 114/53
[2018-02-25] MEDS: LISINOPRIL 20 MG TABLET PO SCH (09:00)
[2018-02-25] MEDS: TOPIRAMATE 25 MG TABLET. PO SCH ×2 (09:13→19:44)
[2018-02-25] MEDS: ASPIRIN 81 MG TAB.CHEW PO SCH (09:13)
[2018-02-25] MEDS: FUROSEMIDE 20 MG TABLET PO SCH (09:14)
[2018-02-25] MEDS: POTASSIUM CHLORIDE 20 MEQ TABLET.ER. PO SCH (09:14)
[2018-02-25] MEDS: PANTOPRAZOLE 40 MG TABLET. PO SCH (09:14)
[2018-02-25] MEDS: CALCIUM CARB/VIT D3 500/200 TABLET PO SCH (09:14)
[2018-02-25] MEDS: SERTRALINE 50 MG TABLET. PO SCH (09:14)
--- NOTE | 2018-02-25 10:51 | NUR ---
Behavior Intervention Response and Plan: BIRP Note: Behavior: Assumed Care of patient, patient located in Day Room at shift change. Patient exhibited the following behavior Calm, Disorganized, Compliant. Brief assessment on rounds of vital signs, medication needs, lab studies, and pain. Treatment plan problems . Intervention: Patient assessed and the following interventions initiated safety checks 15 Minute Checks Head to toe Assessment , Cognitive Assessment , Medications. Response: After interactions and interventions patient responded in the following manner, Compliant , Delusions ,Able to Focus on Task. Continue to assess behaviors and condition will continue to monitor throughout the shift as needed. Patient educated on ADL's, and hand hygiene. Plan: Continue to monitor Master Treatment Plan for patient's progress toward short term goals of Improved Mood, Decreased Agitation, correction goals to return to previous living setting vs placement. Continue to assess patient for changes in above assessment. Monitor for medication needs, pain, and safety concerns. Hourly rounding performed to ensure safe environment.
[2018-02-25 12:31] LABS: BILIRUBIN,URINE NEG (NEG); CLARITY,URINE CLOUDY; COLOR,URINE YELLOW; GLUCOSE,URINE NEG (NEG); NITRITE,URINE NEG (NEG); RBC,URINE 0 /HPF (0-2); UROBILINOGEN,URINE 0.2 mg/dL (0.2 mg/dL); WBC,URINE OCC /HPF (0-4)
[2018-02-25 12:32] LABS: BACTERIA,URINE 0 /HPF (0-FEW); SQUAMOUS EPITHELIAL CELL,UR MANY /LPF
[2018-02-25 16:56] VITALS: BP 139/62
[2018-02-25] MEDS: MIRTAZAPINE 7.5 MG TABLET. PO SCH (19:43)
[2018-02-25] MEDS: ATORVASTATIN CALCIUM 10 MG TABLET. PO SCH (19:44)
--- NOTE | 2018-02-25 21:06 | PDOC ---
Exam Note: Sadiq Note: Please also refer to the separate dictated note~for this date of service dictated separately.~Patient seen individually. Discussed the patient with Nursing staff reviewed the chart.~Reviewed interim history and current functioning. Reviewed vital signs,~Labs/ Radiology~and current medications noted below. Continue current treatment with the changes noted in the dictated addendum note Assessment: Vital Signs: Vital Signs Date Time Temp Pulse Resp B/P (MAP) Pulse Ox O2 Delivery O2 Flow Rate FiO2 02/25/18 16:56 97.8 64 19 139/62 (87) 99 02/24/18 16:19 Room Air I&O Intake and Output 02/25/18 07:00 Intake Total 1080 ml Balance 1080 ml Intake Oral 1080 ml Labs: Laboratory Tests Test 02/25/18 12:08 Urine Collection Type Unknown Urine Color Yellow Urine Clarity Cloudy Urine pH 6.5 Urine Specific [place] 1.015 Urine Protein Neg (NEG-TRACE) Urine Glucose (UA) Neg mg/dL (NEG) Urine Ketones (Stick) Neg mg/dL (NEG) Urine Blood Neg (NEG) Urine Nitrite Neg (NEG) Urine Bilirubin Neg (NEG) Urine Urobilinogen Dipstick 0.2 mg/dL (0.2 mg/dL) Urine Leukocyte Esterase Neg (NEG) Urine RBC 0 /HPF (0-2) Urine WBC Occ /HPF (0-4) Urine Squamous Epithelial Cells Many /LPF Urine Bacteria 0 /HPF (0-FEW) Urine Mucus Mod /LPF Current Medications: Meds: Current Medications Acetaminophen (Tylenol) 650 mg PRN Q6HRS PRN PO PAIN / TEMP; Start 02/19/18 at 18:30; Stop 02/19/18 at 19:01; Status DC Multi-Ingredient Ointment (Analgesic [place]) 1 argelia PRN QID PRN TP MUSCLE PAIN; Start 02/19/18 at 18:30 Al Hydroxide/Mg Hydroxide (Mylanta Plus Xs) 15 ml PRN AFTMEALHC PRN PO DYSPEPSIA; Start 02/19/18 at 18:30 Magnesium Hydroxide (Milk Of Magnesia) 2,400 mg PRN QHS PRN PO CONSTIPATION; Start 02/19/18 at 18:30 Furosemide (Lasix) 20 mg DAILY PO Last administered on 02/25/18at 09:14; Start 02/20/18 at 09:00 Lisinopril (Prinivil) 20 mg DAILY PO Last administered on 02/24/18 07:59; Start 02/20/18 at 09:00 Potassium Chloride (Klor-Con) 20 meq DAILY PO Last administered on 02/25/18 09 :14; Start 02/20/18 at 09:00 Acetaminophen (Tylenol) 500 mg PRN Q6HRS PRN PO PAIN / TEMP; Start 02/19/18 at 19:15 Acetaminophen (Tylenol) 650 mg PRN Q6HRS PRN [place] PAIN / TEMP; Start 02/19/18 at 19:15 Aspirin (Children'S Aspirin) 81 mg DAILYWBKFT PO Last administered on 09:13; Start 02/20/18 at 08:00 Calcium/Vitamin D (Oscal D 500mg/ 200uts) 1 tab DAILYWBKFT PO Last administered on 02/25/18 09:14; Start 02/20/18 at 08:00 Acetaminophen/ Hydrocodone Bitart (Lortab 5/325) 1 tab PRN Q6HRS PRN PO PAIN; Start 02/20/18 at 00:00 Pantoprazole Sodium (Protonix) 40 mg DAILYAC PO Last administered on 02/25/18 09:14; Start 02/20/18 at 07:30 Topiramate (Topamax) 75 mg BID PO Last administered on 02/25/18 19:44; Start 02/19/18 at 21:00 Sertraline HCl (Zoloft) 25 mg DAILY PO Last administered on 02/23/18 08:44; Start 02/21/18 at 09:00; Stop 02/24/18 at 08:01; Status DC Vitamin D (Vitamin D3) 50,000 unit WEEKLY PO Last administered on 02/21/18 20: 38; Start 02/21/18 at 19:00 Atorvastatin Calcium (Lipitor) 10 mg QHS PO Last administered on 02/25/18 19: 44; Start 02/21/18 at 21:00 Mirtazapine (Remeron) 7.5 mg QHS PO Last administered on 02/25/18 19:43; Start 02/21/18 at 21:00 Sertraline HCl (Zoloft) 50 mg DAILY PO Last administered on 5/27/18at 09:14; Start 02/23/18 at 09:00 Olanzapine (ZyPREXA ZYDIS) 2.5 mg PRN Q2HR PRN PO agitation/psychosis; Start at 15:45 Active Scripts Active Reported Acetaminophen 500 Mg Tablet 500 Mg PO PRN Q6HRS PRN Acetaminophen Supp (Acetaminophen) 650 Mg Supp.rect 650 Mg RC PRN Q6HRS PRN [place] 5-325 Tablet (Hydrocodone Bit/Acetaminophen) 1 Each Tablet 1 Tab PO Q6HRS Klor-Con M20 (Potassium Chloride) 20 Meq Tab.er.prt 20 Meq PO DAILY Furosemide 20 Mg Tablet 20 Mg PO DAILY Lisinopril 20 Mg Tablet 20 Mg PO DAILY Calcium 500 + Vit D 400 Tablet (Calcium Carbonate/Vitamin D3) 1 Each Tablet 1 Each PO DAILY Aspirin 81 Mg Tab.chew 81 Mg PO DAILY Omeprazole 20 Mg Capsule.dr 20 Mg PO DAILY Topiramate 25 Mg Tablet 75 Mg PO BID I have reviewed the current psychotropics carefully including drug interactions. Risk benefit ratio favors no change other than as noted in my dictated progress note. Diagnosis: Problems: (1) Anxiety disorder (2) Dementia in Alzheimer's disease with delusions (3) Dementia in Alzheimer's disease with depression (4) Dementia, vascular, with delusions (5) Dementia, vascular, with depression (6) Impulse control disorder KARO SANTOS MD February 25, 2018 21:06
--- NOTE | 2018-02-25 22:50 | NUR ---
Nursing NOte Pt much clearer with her thinking and processing tonight. She can actually speak in a full sentence to tell me she was having pain to her right ear and jaw. She was asking for tylenol and said its been hurting all afternoon really. Compliant with meds and assessment. This is much improved over Monday night, she was speaking in a word salad and nothing made any sense. She just babbled constantly when spoken to but followed commands appropriately. So seems better and much clearer at this time.
[2018-02-26 06:25] VITALS: BP 136/51
[2018-02-26] MEDS: SERTRALINE 50 MG TABLET. PO SCH (08:24)
[2018-02-26] MEDS: FUROSEMIDE 20 MG TABLET PO SCH (08:24)
[2018-02-26] MEDS: ASPIRIN 81 MG TAB.CHEW PO SCH (08:24)
[2018-02-26] MEDS: TOPIRAMATE 25 MG TABLET. PO SCH ×2 (08:24→20:56)
[2018-02-26] MEDS: POTASSIUM CHLORIDE 20 MEQ TABLET.ER. PO SCH (08:25)
[2018-02-26] MEDS: CALCIUM CARB/VIT D3 500/200 TABLET PO SCH (08:25)
[2018-02-26] MEDS: PANTOPRAZOLE 40 MG TABLET. PO SCH (08:25)
[2018-02-26] MEDS: LISINOPRIL 20 MG TABLET PO SCH (08:25)
[2018-02-26 10:06] LABS: BASO % 1 % (0-3); EOS # 0.2 x10^3/uL (0.0-0.7); EOS % 4 % (0-3); HEMATOCRIT 39.8 % (36.0-47.0); HEMOGLOBIN 12.4 g/dL (12.0-15.5); LYMPH # 2.2 x10^3/uL (1.0-4.8); LYMPH % 37 % (24-48); MEAN CORPUSCULAR HEMOGLOBIN 31 pg (25-35); MEAN CORPUSCULAR HGB CONC 31 g/dL (31-37); MEAN CORPUSCULAR VOLUME 99 fL (79-100); MONO # 0.6 x10^3/uL (0.0-1.1); MONO % 9 % (0-9); NEUT # 2.9 x10^3uL (1.8-7.7); NEUT % 49 % (31-73); PLATELET COUNT 150 x10^3/uL (140-400); RED BLOOD COUNT 4.02 x10^6/uL (3.50-5.40); RED CELL DISTRIBUTION WIDTH 15.7 % (11.5-14.5)
[2018-02-26 10:12] LABS: ALBUMIN 3.5 g/dL (3.4-5.0); ALBUMIN/GLOBULIN RATIO 0.9 (1.0-1.7); CALCIUM 8.9 mg/dL (8.5-10.1); GFR 53.8; POTASSIUM 4.4 mmol/L (3.5-5.1); TOTAL BILIRUBIN 0.4 mg/dL (0.2-1.0); TOTAL PROTEIN 7.6 g/dL (6.4-8.2)
--- NOTE | 2018-02-26 11:57 | NUR ---
Behavior Intervention Response and Plan: BIRP Note: Behavior: Assumed Care of patient, patient located in Day Room at shift change. Patient exhibited the following behavior Calm, Disorganized, Compliant. Brief assessment on rounds of vital signs, medication needs, lab studies, and pain. Treatment plan problems . Intervention: Patient assessed and the following interventions initiated safety checks 15 Minute Checks Head to toe Assessment , Cognitive Assessment , Medications. Response: After interactions and interventions patient responded in the following manner, Compliant , Delusions ,calm. Continue to assess behaviors and condition will continue to monitor throughout the shift as needed. Patient educated on ADL's, and hand hygiene. Plan: Continue to monitor Master Treatment Plan for patient's progress toward short term goals of Improved Mood, Decreased Agitation, snf goals to return to previous living setting vs placement. Continue to assess patient for changes in above assessment. Monitor for medication needs, pain, and safety concerns. Hourly rounding performed to ensure safe environment.
[2018-02-26] MEDS ORDERED: CHOLECALCIFEROL (VITAMIN D3) 50,000 UNIT CAPSULE PO SCH (15:45)
[2018-02-26 16:10] VITALS: BP 102/61
--- NOTE | 2018-02-26 20:50 | PDOC ---
Exam Note: Sadiq Note: Please also refer to the separate dictated note~for this date of service dictated separately.~Patient seen individually. Discussed the patient with Nursing staff reviewed the chart.~Reviewed interim history and current functioning. Reviewed vital signs,~Labs/ Radiology~and current medications noted below. Continue current treatment with the changes noted in the dictated addendum note Assessment: Vital Signs: Vital Signs Date Time Temp Pulse Resp B/P (MAP) Pulse Ox O2 Delivery O2 Flow Rate FiO2 02/26/18 16:10 97.9 58 20 102/61 (75) 98 02/24/18 16:19 Room Air I&O Intake and Output 02/26/18 07:00 Intake Total 920 ml Balance 920 ml Intake Oral 920 ml # Voids 1 Labs: Laboratory Tests Test 02/26/18 09:30 White Blood Count 6.0 x10^3/uL (4.0-11.0) Red Blood Count 4.02 x10^6/uL (3.50-5.40) Hemoglobin 12.4 g/dL (12.0-15.5) Hematocrit 39.8 % (36.0-47.0) Mean Corpuscular Volume 99 fL (79-100) Mean Corpuscular Hemoglobin 31 pg (25-35) Mean Corpuscular Hemoglobin Concent 31 g/dL (31-37) Red Cell Distribution Width 15.7 % (11.5-14.5) H Platelet Count 150 x10^3/uL (140-400) Neutrophils (%) (Auto) 49 % (31-73) Lymphocytes (%) (Auto) 37 % (24-48) Monocytes (%) (Auto) 9 % (0-9) Eosinophils (%) (Auto) 4 % (0-3) H Basophils (%) (Auto) 1 % (0-3) Neutrophils # (Auto) 2.9 x10^3uL (1.8-7.7) Lymphocytes # (Auto) 2.2 x10^3/uL (1.0-4.8) Monocytes # (Auto) 0.6 x10^3/uL (0.0-1.1) Eosinophils # (Auto) 0.2 x10^3/uL (0.0-0.7) Basophils # (Auto) 0.0 x10^3/uL (0.0-0.2) Sodium Level 139 mmol/L (136-145) Potassium Level 4.4 mmol/L (3.5-5.1) Chloride Level 107 mmol/L (98-107) Carbon Dioxide Level 20 mmol/L (21-32) L Anion Gap 12 (6-14) Blood Urea Nitrogen 31 mg/dL (7-20) H Creatinine 1.0 mg/dL (0.6-1.0) Estimated GFR (Cockcroft-Gault) 53.8 BUN/Creatinine Ratio 31 (6-20) H Glucose Level 104 mg/dL (70-99) H Calcium Level 8.9 mg/dL (8.5-10.1) Total Bilirubin 0.4 mg/dL (0.2-1.0) Aspartate Amino Transferase (AST) 23 U/L (15-37) Alanine Aminotransferase (ALT) 19 U/L (14-59) Alkaline Phosphatase 75 U/L (46-116) Total Protein 7.6 g/dL (6.4-8.2) Albumin 3.5 g/dL (3.4-5.0) Albumin/Globulin Ratio 0.9 (1.0-1.7) L Current Medications: Meds: Current Medications Acetaminophen (Tylenol) 650 mg PRN Q6HRS PRN PO PAIN / TEMP; Start 02/19/18 at 18:30; Stop 02/19/18 at 19:01; Status DC Multi-Ingredient Ointment (Analgesic [place]) 1 argelia PRN QID PRN TP MUSCLE PAIN; Start 02/19/18 at 18:30 Al Hydroxide/Mg Hydroxide (Mylanta Plus Xs) 15 ml PRN AFTMEALHC PRN PO DYSPEPSIA; Start 02/19/18 at 18:30 Magnesium Hydroxide (Milk Of Magnesia) 2,400 mg PRN QHS PRN PO CONSTIPATION; Start 02/19/18 at 18:30 Furosemide (Lasix) 20 mg DAILY PO Last administered on 02/26/18at 08:24; Start 02/20/18 at 09:00 Lisinopril (Prinivil) 20 mg DAILY PO Last administered on 02/26/18at 08:25; Start 02/20/18 at 09:00 Potassium Chloride (Klor-Con) 20 meq DAILY PO Last administered on 02/26/18at 08 :25; Start 02/20/18 at 09:00 Acetaminophen (Tylenol) 500 mg PRN Q6HRS PRN PO PAIN / TEMP; Start 02/19/18 at 19:15 Acetaminophen (Tylenol) 650 mg PRN Q6HRS PRN [place] PAIN / TEMP; Start 02/19/18 at 19:15 Aspirin (Children'S Aspirin) 81 mg DAILYWBKFT PO Last administered on 08:24; Start 02/20/18 at 08:00 Calcium/Vitamin D (Oscal D 500mg/ 200uts) 1 tab DAILYWBKFT PO Last administered on 02/26/18 08:25; Start 02/20/18 at 08:00 Acetaminophen/ Hydrocodone Bitart (Lortab 5/325) 1 tab PRN Q6HRS PRN PO PAIN; Start 02/20/18 at 00:00 Pantoprazole Sodium (Protonix) 40 mg DAILYAC PO Last administered on 02/26/18 08:25; Start 02/20/18 at 07:30 Topiramate (Topamax) 75 mg BID PO Last administered on 02/26/18 08:24; Start 02/19/18 at 21:00 Sertraline HCl (Zoloft) 25 mg DAILY PO Last administered on 02/23/18 08:44; Start 02/21/18 at 09:00; Stop 02/24/18 at 08:01; Status DC Vitamin D (Vitamin D3) 50,000 unit WEEKLY PO Last administered on 02/21/18at 20: 38; Start 02/21/18 at 19:00 Atorvastatin Calcium (Lipitor) 10 mg QHS PO Last administered on 02/25/18 19: 44; Start 02/21/18 at 21:00 Mirtazapine (Remeron) 7.5 mg QHS PO Last administered on 02/25/18 19:43; Start 02/21/18 at 21:00 Sertraline HCl (Zoloft) 50 mg DAILY PO Last administered on 02/26/18at 08:24; Start 02/23/18 at 09:00 Olanzapine (ZyPREXA ZYDIS) 2.5 mg PRN Q2HR PRN PO agitation/psychosis; Start at 15:45 Vitamin D (Vitamin D3) 50,000 unit WEEKLY PO ; Start 02/26/18 at 15:45; Stop at 18:41; Status DC Active Scripts Active Reported Acetaminophen 500 Mg Tablet 500 Mg PO PRN Q6HRS PRN Acetaminophen Supp (Acetaminophen) 650 Mg Supp.rect 650 Mg RC PRN Q6HRS PRN [place] 5-325 Tablet (Hydrocodone Bit/Acetaminophen) 1 Each Tablet 1 Tab PO Q6HRS Klor-Con M20 (Potassium Chloride) 20 Meq Tab.er.prt 20 Meq PO DAILY Furosemide 20 Mg Tablet 20 Mg PO DAILY Lisinopril 20 Mg Tablet 20 Mg PO DAILY Calcium 500 + Vit D 400 Tablet (Calcium Carbonate/Vitamin D3) 1 Each Tablet 1 Each PO DAILY Aspirin 81 Mg Tab.chew 81 Mg PO DAILY Omeprazole 20 Mg Capsule.dr 20 Mg PO DAILY Topiramate 25 Mg Tablet 75 Mg PO BID I have reviewed the current psychotropics carefully including drug interactions. Risk benefit ratio favors no change other than as noted in my dictated progress note. Diagnosis: Problems: (1) Anxiety disorder (2) Dementia in Alzheimer's disease with delusions (3) Dementia in Alzheimer's disease with depression (4) Dementia, vascular, with delusions (5) Dementia, vascular, with depression (6) Impulse control disorder KARO SANTOS MD February 26, 2018 20:50
[2018-02-26] MEDS: MIRTAZAPINE 7.5 MG TABLET. PO SCH (20:56)
[2018-02-26] MEDS: ATORVASTATIN CALCIUM 10 MG TABLET. PO SCH (20:56)
--- NOTE | 2018-02-26 22:51 | PN ---
DATE: 02/23/2018 PSYCHIATRIC PROGRESS NOTE This is a late entry 02/23/2018 covers elements not covered in my initial note. SUBJECTIVE: I met with the patient in the evening. The patient slept 7-3/4 hours previous evening, agitated around 11 a.m. redirectable, confused. REVIEW OF SYSTEMS: No CV, , pulmonary, eye, ENT system symptoms on review. Reliability poor. MENTAL STATUS EXAM: Oriented to herself. Insight, judgment, recent and remote memory, attention, concentration, fund of knowledge poor, consistent with her diagnosis mentioned in my initial note. Slept 7-3/4 hours previous evening. PLAN: Continue psychotropics from my initial note. Adjust as indicated. MAN Michelle SANTOS MD DR: JERILYN/tommy JOB#: [id number] / [id number]
--- NOTE | 2018-02-26 22:53 | PN ---
DATE: 02/24/2018 PSYCHIATRIC PROGRESS NOTE This is a late entry 02/24/2018, covers elements not covered in my initial note. SUBJECTIVE: I met with the patient in the evening. The patient slept 6-1/2 hours. Yesterday, she was agitated at lunchtime on 02/23/2018, but no agitation noted 02/24/2018. REVIEW OF SYSTEMS: No CV, , pulmonary, eye, ENT system symptoms on review. Reliability poor. MENTAL STATUS EXAM: Oriented to herself. Insight, judgment, recent and remote memory, attention, concentration, fund of knowledge poor, consistent with her diagnoses mentioned in my initial note. PLAN: Continue psychotropics from my initial note. MAN Michelle SANTOS MD DR: JERILYN/tommy JOB#: [id number] / [id number]
--- NOTE | 2018-02-26 23:14 | NUR ---
Behavior Intervention Response and Plan: BIRP Note: Behavior: Assumed Care of patient, patient located in Day Room at shift change. Patient exhibited the following behavior Calm, Disorganized, Social. Brief assessment on rounds of vital signs, medication needs, lab studies, and pain. Treatment plan problems . Intervention: Patient assessed and the following interventions initiated safety checks 15 Minute Checks Head to toe Assessment , Cognitive Assessment , Medications. Response: After interactions and interventions patient responded in the following manner, Wandering , Compliant ,Cooperative. Continue to assess behaviors and condition will continue to monitor throughout the shift as needed. Patient educated on ADL's, and hand hygiene. 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 Continue to assess patient for changes in above assessment. Monitor for medication needs, pain, and safety concerns. Hourly rounding performed to ensure safe environment.
[2018-02-27 06:27] VITALS: BP 115/57
[2018-02-27] MEDS: TOPIRAMATE 25 MG TABLET. PO SCH ×2 (09:47→19:14)
[2018-02-27] MEDS: PANTOPRAZOLE 40 MG TABLET. PO SCH (09:47)
[2018-02-27] MEDS: FUROSEMIDE 20 MG TABLET PO SCH (09:48)
[2018-02-27] MEDS: LISINOPRIL 20 MG TABLET PO SCH (09:48)
[2018-02-27] MEDS: CALCIUM CARB/VIT D3 500/200 TABLET PO SCH (09:48)
[2018-02-27] MEDS: SERTRALINE 50 MG TABLET. PO SCH (09:48)
[2018-02-27] MEDS: POTASSIUM CHLORIDE 20 MEQ TABLET.ER. PO SCH (09:48)
[2018-02-27] MEDS: ASPIRIN 81 MG TAB.CHEW PO SCH (09:48)
--- NOTE | 2018-02-27 11:54 | NUR ---
Behavior Intervention Response and Plan: BIRP Note: Behavior: Assumed Care of patient, patient located in Hallway at shift change. Patient exhibited the following behavior Wandering, Restless, Interactive. Brief assessment on rounds of vital signs, medication needs, lab studies, and pain. Treatment plan problems 1 and 2. Intervention: Patient assessed and the following interventions initiated safety checks 15 Minute Checks Cognitive Assessment , Head to toe Assessment , Medications. Response: After interactions and interventions patient responded in the following manner, Calm , Disorganized ,Compliant. Continue to assess behaviors and condition will continue to monitor throughout the shift as needed. Patient educated on ADL's, and hand hygiene. Plan: Continue to monitor Master Treatment Plan for patient's progress toward short term goals of Decreased Agitation, Improved Mood, longterm goals to return to previous living setting vs placement. Continue to assess patient for changes in above assessment. Monitor for medication needs, pain, and safety concerns. Hourly rounding performed to ensure safe environment.
--- NOTE | 2018-02-27 11:55 | NUR ---
patient compliant with medications taken whole. Was able to take them without assistance today. Pleasantly confused and wandering in hallway near [facility]. Cooperative with shower and assessment.
[2018-02-27 16:21] VITALS: BP 123/61
[2018-02-27] MEDS: ATORVASTATIN CALCIUM 10 MG TABLET. PO SCH (19:14)
[2018-02-27] MEDS: MIRTAZAPINE 7.5 MG TABLET. PO SCH (19:14)
--- NOTE | 2018-02-27 20:53 | PDOC ---
Exam Note: Sadiq Note: Please also refer to the separate dictated note~for this date of service dictated separately.~Patient seen individually. Discussed the patient with Nursing staff reviewed the chart.~Reviewed interim history and current functioning. Reviewed vital signs,~Labs/ Radiology~and current medications noted below. Continue current treatment with the changes noted in the dictated addendum note Assessment: Vital Signs: Vital Signs Date Time Temp Pulse Resp B/P (MAP) Pulse Ox O2 Delivery O2 Flow Rate FiO2 02/27/18 16:21 97.8 62 16 123/61 (81) 100 02/24/18 16:19 Room Air I&O Intake and Output 02/27/18 07:00 Intake Total 1440 ml Balance 1440 ml Intake Oral 1440 ml # Bowel Movements 1 Current Medications: Meds: Current Medications Acetaminophen (Tylenol) 650 mg PRN Q6HRS PRN PO PAIN / TEMP; Start 02/19/18 at 18:30; Stop 02/19/18 at 19:01; Status DC Multi-Ingredient Ointment (Analgesic [place]) 1 argelia PRN QID PRN TP MUSCLE PAIN; Start 02/19/18 at 18:30 Al Hydroxide/Mg Hydroxide (Mylanta Plus Xs) 15 ml PRN AFTMEALHC PRN PO DYSPEPSIA; Start 02/19/18 at 18:30 Magnesium Hydroxide (Milk Of Magnesia) 2,400 mg PRN QHS PRN PO CONSTIPATION; Start 02/19/18 at 18:30 Furosemide (Lasix) 20 mg DAILY PO Last administered on 02/27/18at 09:48; Start 02/20/18 at 09:00 Lisinopril (Prinivil) 20 mg DAILY PO Last administered on 02/26/18at 08:25; Start 02/20/18 at 09:00 Potassium Chloride (Klor-Con) 20 meq DAILY PO Last administered on 02/27/18at 09 :48; Start 02/20/18 at 09:00 Acetaminophen (Tylenol) 500 mg PRN Q6HRS PRN PO PAIN / TEMP; Start 02/19/18 at 19:15 Acetaminophen (Tylenol) 650 mg PRN Q6HRS PRN [place] PAIN / TEMP; Start 02/19/18 at 19:15 Aspirin (Children'S Aspirin) 81 mg DAILYWBKFT PO Last administered on 09:48; Start 02/20/18 at 08:00 Calcium/Vitamin D (Oscal D 500mg/ 200uts) 1 tab DAILYWBKFT PO Last administered on 02/27/18 09:48; Start 02/20/18 at 08:00 Acetaminophen/ Hydrocodone Bitart (Lortab 5/325) 1 tab PRN Q6HRS PRN PO PAIN; Start 02/20/18 at 00:00 Pantoprazole Sodium (Protonix) 40 mg DAILYAC PO Last administered on 02/27/18 09:47; Start 02/20/18 at 07:30 Topiramate (Topamax) 75 mg BID PO Last administered on 02/27/18 19:14; Start 02/19/18 at 21:00 Sertraline HCl (Zoloft) 25 mg DAILY PO Last administered on 02/23/18 08:44; Start 02/21/18 at 09:00; Stop 02/24/18 at 08:01; Status DC Vitamin D (Vitamin D3) 50,000 unit WEEKLY PO Last administered on 02/21/18 20: 38; Start 02/21/18 at 19:00 Atorvastatin Calcium (Lipitor) 10 mg QHS PO Last administered on 02/27/18 19: 14; Start 02/21/18 at 21:00 Mirtazapine (Remeron) 7.5 mg QHS PO Last administered on 02/27/18 19:14; Start 02/21/18 at 21:00 Sertraline HCl (Zoloft) 50 mg DAILY PO Last administered on 02/27/18 09:48; Start 02/23/18 at 09:00 Olanzapine (ZyPREXA ZYDIS) 2.5 mg PRN Q2HR PRN PO agitation/psychosis; Start at 15:45 Vitamin D (Vitamin D3) 50,000 unit WEEKLY PO ; Start 02/26/18 at 15:45; Stop at 18:41; Status DC Active Scripts Active Reported Acetaminophen 500 Mg Tablet 500 Mg PO PRN Q6HRS PRN Acetaminophen Supp (Acetaminophen) 650 Mg Supp.rect 650 Mg RC PRN Q6HRS PRN [place] 5-325 Tablet (Hydrocodone Bit/Acetaminophen) 1 Each Tablet 1 Tab PO Q6HRS Klor-Con M20 (Potassium Chloride) 20 Meq Tab.er.prt 20 Meq PO DAILY Furosemide 20 Mg Tablet 20 Mg PO DAILY Lisinopril 20 Mg Tablet 20 Mg PO DAILY Calcium 500 + Vit D 400 Tablet (Calcium Carbonate/Vitamin D3) 1 Each Tablet 1 Each PO DAILY Aspirin 81 Mg Tab.chew 81 Mg PO DAILY Omeprazole 20 Mg Capsule.dr 20 Mg PO DAILY Topiramate 25 Mg Tablet 75 Mg PO BID I have reviewed the current psychotropics carefully including drug interactions. Risk benefit ratio favors no change other than as noted in my dictated progress note. Diagnosis: Problems: (1) Anxiety disorder (2) Dementia in Alzheimer's disease with delusions (3) Dementia in Alzheimer's disease with depression (4) Dementia, vascular, with delusions (5) Dementia, vascular, with depression (6) Impulse control disorder KARO SANTOS MD February 27, 2018 20:53
--- NOTE | 2018-02-27 22:43 | NUR ---
Behavior Intervention Response and Plan: BIRP Note: Behavior: Assumed Care of patient, patient located in Day Room at shift change. Patient exhibited the following behavior Interactive, Disorganized, Compulsive. Brief assessment on rounds of vital signs, medication needs, lab studies, and pain. Treatment plan problems . Intervention: Patient assessed and the following interventions initiated safety checks 15 Minute Checks Head to toe Assessment , Cognitive Assessment , Medications. Response: After interactions and interventions patient responded in the following manner, Delusions , Compliant ,Cooperative. Continue to assess behaviors and condition will continue to monitor throughout the shift as needed. Patient educated on ADL's, and hand hygiene. 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 Continue to assess patient for changes in above assessment. Monitor for medication needs, pain, and safety concerns. Hourly rounding performed to ensure safe environment.
[2018-02-28 06:09] VITALS: BP 121/39
[2018-02-28] MEDS: PANTOPRAZOLE 40 MG TABLET. PO SCH (08:42)
[2018-02-28] MEDS: TOPIRAMATE 25 MG TABLET. PO SCH ×2 (08:42→21:09)
[2018-02-28] MEDS: POTASSIUM CHLORIDE 20 MEQ TABLET.ER. PO SCH (08:42)
[2018-02-28] MEDS: ASPIRIN 81 MG TAB.CHEW PO SCH (08:42)
[2018-02-28] MEDS: LISINOPRIL 20 MG TABLET PO SCH (08:42)
[2018-02-28] MEDS: CALCIUM CARB/VIT D3 500/200 TABLET PO SCH (08:42)
[2018-02-28] MEDS: FUROSEMIDE 20 MG TABLET PO SCH (08:42)
[2018-02-28] MEDS: SERTRALINE 50 MG TABLET. PO SCH (08:42)
[2018-02-28] MEDS: CHOLECALCIFEROL (VITAMIN D3) 50,000 UNIT CAPSULE PO SCH (08:43)
--- NOTE | 2018-02-28 09:45 | NUR ---
Patient took medications whole, but was somewhat resistive with last few (said "No, I'm done"). Waited and re-approached the patient 5 minutes later and she was able to take the medications at that time.
--- NOTE | 2018-02-28 12:46 | PN ---
DATE: 02/26/2018 This late entry, 02/26/2018, covers elements not covered in my initial note of 02/26/2018. SUBJECTIVE: I met with the patient in the evening. The patient slept 7-1/2 hours previous evening, wandering, confused, cannot hold a conversation. REVIEW OF SYSTEMS: No CV, , pulmonary, eye, ENT system symptoms on review. Reliability poor. MENTAL STATUS EXAM: Oriented to herself. Insight, judgment, recent and remote memory, attention, concentration, fund of knowledge poor, consistent with her diagnosis mentioned in my initial note. PLAN: Continue current psychotropics. Adjust further as clinically indicated. KARO SANTOS MD DR: JERILYN/tommy JOB#: [id number] / [id number]
--- NOTE | 2018-02-28 12:47 | PN ---
DATE: 02/25/2018 PSYCHIATRIC PROGRESS NOTE This late entry 02/25/2018 covers elements not covered in my initial note. SUBJECTIVE: Met with the patient in the evening. The patient remains quite confused, anxious, restless, wandering, but redirectable. REVIEW OF SYSTEMS: No CV, , pulmonary, eye, ENT system symptoms on review. Reliability is poor. MENTAL STATUS EXAM: Oriented to herself. Insight, judgment, recent and remote memory, attention, concentration, fund of knowledge is poor, consistent with her diagnoses mentioned in my initial note. PLAN: Continue psychotropics, Topamax, Remeron. Zoloft was increased and Zyprexa as p.r.n. MAN Michelle SANTOS MD DR: JERILYN/tommy JOB#: [id number] / [id number]
--- NOTE | 2018-02-28 15:00 | NUR ---
WEEKLY THERAPEUTIC RECREATION NOTE Date of Admission: 02/19/2018 Date of AT Assessment: 02/23/2018 Goal aimed: to increase engagement and socialization Initial Goal: Pt. will participate in at least three groups (besides coffee/orientation) before discharge. Weekly progress towards goal: on track group /3- ball bounce on Friday 02/23 Group participation level: minimal Behaviors observed: wanders halls, doesn't understand or make sense when speaking. Need redirection Plan: no changes to goal
--- NOTE | 2018-02-28 15:15 | NUR ---
Behavior Intervention Response and Plan: BIRP Note: Behavior: Assumed Care of patient, patient located in Hallway at shift change. Patient exhibited the following behavior Wandering, Restless, Calm. Brief assessment on rounds of vital signs, medication needs, lab studies, and pain. Treatment plan problems 1 and 2. Intervention: Patient assessed and the following interventions initiated safety checks 15 Minute Checks Cognitive Assessment , Medications , Oral Hydration. Response: After interactions and interventions patient responded in the following manner, Disorganized , Wandering ,Compliant. Continue to assess behaviors and condition will continue to monitor throughout the shift as needed. Patient educated on ADL's, and hand hygiene. 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 Continue to assess patient for changes in above assessment. Monitor for medication needs, pain, and safety concerns. Hourly rounding performed to ensure safe environment.
[2018-02-28 16:19] VITALS: BP 121/78
--- NOTE | 2018-02-28 21:08 | PDOC ---
Exam Note: Sadiq Note: Please also refer to the separate dictated note~for this date of service dictated separately.~Patient seen individually. Discussed the patient with Nursing staff reviewed the chart.~Reviewed interim history and current functioning. Reviewed vital signs,~Labs/ Radiology~and current medications noted below. Continue current treatment with the changes noted in the dictated addendum note Assessment: Vital Signs: Vital Signs Date Time Temp Pulse Resp B/P (MAP) Pulse Ox O2 Delivery O2 Flow Rate FiO2 02/28/18 16:19 97.0 74 22 121/78 (92) 98 Room Air I&O Intake and Output 02/28/18 07:00 Intake Total 960 ml Balance 960 ml Intake Oral 960 ml # Bowel Movements 1 Current Medications: Meds: Current Medications Acetaminophen (Tylenol) 650 mg PRN Q6HRS PRN PO PAIN / TEMP; Start 02/19/18 at 18:30; Stop 02/19/18 at 19:01; Status DC Multi-Ingredient Ointment (Analgesic [place]) 1 argelia PRN QID PRN TP MUSCLE PAIN; Start 02/19/18 at 18:30 Al Hydroxide/Mg Hydroxide (Mylanta Plus Xs) 15 ml PRN AFTMEALHC PRN PO DYSPEPSIA; Start 02/19/18 at 18:30 Magnesium Hydroxide (Milk Of Magnesia) 2,400 mg PRN QHS PRN PO CONSTIPATION; Start 02/19/18 at 18:30 Furosemide (Lasix) 20 mg DAILY PO Last administered on 02/28/18at 08:42; Start 02/20/18 at 09:00 Lisinopril (Prinivil) 20 mg DAILY PO Last administered on 02/28/18at 08:42; Start 02/20/18 at 09:00 Potassium Chloride (Klor-Con) 20 meq DAILY PO Last administered on 02/28/18at 08 :42; Start 02/20/18 at 09:00 Acetaminophen (Tylenol) 500 mg PRN Q6HRS PRN PO PAIN / TEMP; Start 02/19/18 at 19:15 Acetaminophen (Tylenol) 650 mg PRN Q6HRS PRN [place] PAIN / TEMP; Start 02/19/18 at 19:15 Aspirin (Children'S Aspirin) 81 mg DAILYWBKFT PO Last administered on at 08:42; Start 02/20/18 at 08:00 Calcium/Vitamin D (Oscal D 500mg/ 200uts) 1 tab DAILYWBKFT PO Last administered on 02/28/18 08:42; Start 02/20/18 at 08:00 Acetaminophen/ Hydrocodone Bitart (Lortab 5/325) 1 tab PRN Q6HRS PRN PO PAIN; Start 02/20/18 at 00:00 Pantoprazole Sodium (Protonix) 40 mg DAILYAC PO Last administered on 02/28/18 08:42; Start 02/20/18 at 07:30 Topiramate (Topamax) 75 mg BID PO Last administered on 02/28/18 08:42; Start 02/19/18 at 21:00 Sertraline HCl (Zoloft) 25 mg DAILY PO Last administered on 02/23/18 08:44; Start 02/21/18 at 09:00; Stop 02/24/18 at 08:01; Status DC Vitamin D (Vitamin D3) 50,000 unit WEEKLY PO Last administered on 02/28/18 08: 43; Start 02/21/18 at 19:00 Atorvastatin Calcium (Lipitor) 10 mg QHS PO Last administered on 02/27/18 19: 14; Start 02/21/18 at 21:00 Mirtazapine (Remeron) 7.5 mg QHS PO Last administered on 02/27/18 19:14; Start 02/21/18 at 21:00 Sertraline HCl (Zoloft) 50 mg DAILY PO Last administered on 02/28/18 08:42; Start 02/23/18 at 09:00 Olanzapine (ZyPREXA ZYDIS) 2.5 mg PRN Q2HR PRN PO agitation/psychosis; Start at 15:45 Vitamin D (Vitamin D3) 50,000 unit WEEKLY PO ; Start 02/26/18 at 15:45; Stop at 18:41; Status DC Active Scripts Active Reported Acetaminophen 500 Mg Tablet 500 Mg PO PRN Q6HRS PRN Acetaminophen Supp (Acetaminophen) 650 Mg Supp.rect 650 Mg RC PRN Q6HRS PRN [place] 5-325 Tablet (Hydrocodone Bit/Acetaminophen) 1 Each Tablet 1 Tab PO Q6HRS Klor-Con M20 (Potassium Chloride) 20 Meq Tab.er.prt 20 Meq PO DAILY Furosemide 20 Mg Tablet 20 Mg PO DAILY Lisinopril 20 Mg Tablet 20 Mg PO DAILY Calcium 500 + Vit D 400 Tablet (Calcium Carbonate/Vitamin D3) 1 Each Tablet 1 Each PO DAILY Aspirin 81 Mg Tab.chew 81 Mg PO DAILY Omeprazole 20 Mg Capsule.dr 20 Mg PO DAILY Topiramate 25 Mg Tablet 75 Mg PO BID I have reviewed the current psychotropics carefully including drug interactions. Risk benefit ratio favors no change other than as noted in my dictated progress note. Diagnosis: Problems: (1) Anxiety disorder (2) Dementia in Alzheimer's disease with delusions (3) Dementia in Alzheimer's disease with depression (4) Dementia, vascular, with delusions (5) Dementia, vascular, with depression (6) Impulse control disorder KARO SANTOS MD February 28, 2018 21:08
[2018-02-28] MEDS: ATORVASTATIN CALCIUM 10 MG TABLET. PO SCH (21:09)
[2018-02-28] MEDS: MIRTAZAPINE 7.5 MG TABLET. PO SCH (21:09)
--- NOTE | 2018-03-01 02:00 | NUR ---
Behavior Intervention Response and Plan: BIRP Note: Behavior: Assumed Care of patient, patient located in Day Room at shift change. Patient exhibited the following behavior Wandering, Restless, agitated. Brief assessment on rounds of vital signs, medication needs, lab studies, and pain. Treatment plan problems 1 and 2. Intervention: Patient assessed and the following interventions initiated safety checks 15 Minute Checks Cognitive Assessment , Medications , Oral Hydration. Response: After interactions and interventions patient responded in the following manner, Disorganized,Wandering and Compliant. Continue to assess behaviors and condition will continue to monitor throughout the shift as needed. Patient educated on ADL's, and hand hygiene. 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 Continue to assess patient for changes in above assessment. Monitor for medication needs, pain, and safety concerns. Hourly rounding performed to ensure safe environment.
--- NOTE | 2018-03-01 03:17 | PN ---
DATE: 02/27/2018 This late entry 02/27/2018 covers elements not covered in my initial note 02/27/2018. SUBJECTIVE: I met with the patient in the evening. The patient remains confused, wandering the hallways, compliant with medications, looking for her purse, does redirect. She slept 7 hours. REVIEW OF SYSTEMS: No CV, , pulmonary, eye, ENT system symptoms on review. Reliability poor. MENTAL STATUS EXAM: Oriented to herself. Insight, judgment, recent and remote memory, attention, concentration, fund of knowledge poor, consistent with her diagnosis mentioned in my initial note. PLAN: Zoloft was increased to 50 mg a day. Continue rest unchanged from initial note. MAN Michelle SANTOS MD DR: JERILYN/tommy JOB#: [id number] / [id number]
[2018-03-01 06:25] VITALS: BP 115/52
[2018-03-01] MEDS: TOPIRAMATE 25 MG TABLET. PO SCH ×2 (10:58→20:19)
[2018-03-01] MEDS: ASPIRIN 81 MG TAB.CHEW PO SCH (10:58)
[2018-03-01] MEDS: LISINOPRIL 20 MG TABLET PO SCH (10:58)
[2018-03-01] MEDS: SERTRALINE 50 MG TABLET. PO SCH (10:58)
[2018-03-01] MEDS: PANTOPRAZOLE 40 MG TABLET. PO SCH (10:58)
[2018-03-01] MEDS: CALCIUM CARB/VIT D3 500/200 TABLET PO SCH (10:59)
[2018-03-01] MEDS: FUROSEMIDE 20 MG TABLET PO SCH (10:59)
[2018-03-01] MEDS: POTASSIUM CHLORIDE 20 MEQ TABLET.ER. PO SCH (10:59)
--- NOTE | 2018-03-01 14:09 | NUR ---
SW reviewed insurance upon admit. Pt has Medicare part A, B, and no part C. Pt has [employer] as a secondary. No auth required.
--- NOTE | 2018-03-01 14:33 | NUR ---
Behavior Intervention Response and Plan: BIRP Note: Behavior: Assumed Care of patient, patient located in Hallway at shift change. Patient exhibited the following behavior Wandering, Restless, Calm. Brief assessment on rounds of vital signs, medication needs, lab studies, and pain. Treatment plan problems 1 and 2. Intervention: Patient assessed and the following interventions initiated safety checks 15 Minute Checks Cognitive Assessment , Medications , Oral Hydration. Response: After interactions and interventions patient responded in the following manner, Wandering , Disorganized ,Compliant. Continue to assess behaviors and condition will continue to monitor throughout the shift as needed. Patient educated on ADL's, and hand hygiene. 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 Continue to assess patient for changes in above assessment. Monitor for medication needs, pain, and safety concerns. Hourly rounding performed to ensure safe environment.
--- NOTE | 2018-03-01 14:33 | NUR ---
Patient pleasant, med compliant, cooperative with assessment. Wandering in hallway and in and out of day room. Disorganized and unable to engage in or follow detailed conversations.
[2018-03-01 16:17] VITALS: BP 163/68
[2018-03-01] MEDS: MIRTAZAPINE 7.5 MG TABLET. PO SCH (20:19)
[2018-03-01] MEDS: ATORVASTATIN CALCIUM 10 MG TABLET. PO SCH (20:19)
[2018-03-01] MEDS: QUEtiapine 25 MG TABLET. PO SCH (20:23)
--- NOTE | 2018-03-01 20:44 | PDOC ---
Exam Note: Sadiq Note: Please also refer to the separate dictated note~for this date of service dictated separately.~Patient seen individually. Discussed the patient with Nursing staff reviewed the chart.~Reviewed interim history and current functioning. Reviewed vital signs,~Labs/ Radiology~and current medications noted below. Continue current treatment with the changes noted in the dictated addendum note Assessment: Vital Signs: Vital Signs Date Time Temp Pulse Resp B/P (MAP) Pulse Ox O2 Delivery O2 Flow Rate FiO2 03/01/18 16:17 97.0 58 16 163/68 (99) 100 Room Air I&O Intake and Output 03/01/18 07:00 Intake Total 660 ml Balance 660 ml Intake Oral 660 ml Current Medications: Meds: Current Medications Acetaminophen (Tylenol) 650 mg PRN Q6HRS PRN PO PAIN / TEMP; Start 02/19/18 at 18:30; Stop 02/19/18 at 19:01; Status DC Multi-Ingredient Ointment (Analgesic [place]) 1 argelia PRN QID PRN TP MUSCLE PAIN; Start 02/19/18 at 18:30 Al Hydroxide/Mg Hydroxide (Mylanta Plus Xs) 15 ml PRN AFTMEALHC PRN PO DYSPEPSIA; Start 02/19/18 at 18:30 Magnesium Hydroxide (Milk Of Magnesia) 2,400 mg PRN QHS PRN PO CONSTIPATION; Start 02/19/18 at 18:30 Furosemide (Lasix) 20 mg DAILY PO Last administered on 03/01/18at 10:59; Start 02/20/18 at 09:00 Lisinopril (Prinivil) 20 mg DAILY PO Last administered on 03/01/18at 10:58; Start 02/20/18 at 09:00 Potassium Chloride (Klor-Con) 20 meq DAILY PO Last administered on 03/01/18at 10 :59; Start 02/20/18 at 09:00 Acetaminophen (Tylenol) 500 mg PRN Q6HRS PRN PO PAIN / TEMP; Start 02/19/18 at 19:15 Acetaminophen (Tylenol) 650 mg PRN Q6HRS PRN [place] PAIN / TEMP; Start 02/19/18 at 19:15 Aspirin (Children'S Aspirin) 81 mg DAILYWBKFT PO Last administered on at 10:58; Start 02/20/18 at 08:00 Calcium/Vitamin D (Oscal D 500mg/ 200uts) 1 tab DAILYWBKFT PO Last administered on 03/01/18 10:59; Start 02/20/18 at 08:00 Acetaminophen/ Hydrocodone Bitart (Lortab 5/325) 1 tab PRN Q6HRS PRN PO PAIN; Start 02/20/18 at 00:00 Pantoprazole Sodium (Protonix) 40 mg DAILYAC PO Last administered on 03/01/18 10:58; Start 02/20/18 at 07:30 Topiramate (Topamax) 75 mg BID PO Last administered on 03/01/18 20:19; Start 02/19/18 at 21:00 Sertraline HCl (Zoloft) 25 mg DAILY PO Last administered on 02/23/18 08:44; Start 02/21/18 at 09:00; Stop 02/24/18 at 08:01; Status DC Vitamin D (Vitamin D3) 50,000 unit WEEKLY PO Last administered on 02/28/18at 08: 43; Start 02/21/18 at 19:00 Atorvastatin Calcium (Lipitor) 10 mg QHS PO Last administered on 03/01/18 20: 19; Start 02/21/18 at 21:00 Mirtazapine (Remeron) 7.5 mg QHS PO Last administered on 03/01/18 20:19; Start 02/21/18 at 21:00 Sertraline HCl (Zoloft) 50 mg DAILY PO Last administered on 03/01/18 10:58; Start 02/23/18 at 09:00 Olanzapine (ZyPREXA ZYDIS) 2.5 mg PRN Q2HR PRN PO agitation/psychosis; Start at 15:45 Vitamin D (Vitamin D3) 50,000 unit WEEKLY PO ; Start 02/26/18 at 15:45; Stop at 18:41; Status DC Quetiapine Fumarate (SEROquel) 25 mg QHS PO Last administered on 03/01/18at 20: 23; Start 03/01/18 at 21:00 Active Scripts Active Reported Acetaminophen 500 Mg Tablet 500 Mg PO PRN Q6HRS PRN Acetaminophen Supp (Acetaminophen) 650 Mg Supp.rect 650 Mg RC PRN Q6HRS PRN [place] 5-325 Tablet (Hydrocodone Bit/Acetaminophen) 1 Each Tablet 1 Tab PO Q6HRS Klor-Con M20 (Potassium Chloride) 20 Meq Tab.er.prt 20 Meq PO DAILY Furosemide 20 Mg Tablet 20 Mg PO DAILY Lisinopril 20 Mg Tablet 20 Mg PO DAILY Calcium 500 + Vit D 400 Tablet (Calcium Carbonate/Vitamin D3) 1 Each Tablet 1 Each PO DAILY Aspirin 81 Mg Tab.chew 81 Mg PO DAILY Omeprazole 20 Mg Capsule.dr 20 Mg PO DAILY Topiramate 25 Mg Tablet 75 Mg PO BID I have reviewed the current psychotropics carefully including drug interactions. Risk benefit ratio favors no change other than as noted in my dictated progress note. Diagnosis: Problems: (1) Anxiety disorder (2) Dementia in Alzheimer's disease with delusions (3) Dementia in Alzheimer's disease with depression (4) Dementia, vascular, with delusions (5) Dementia, vascular, with depression (6) Impulse control disorder KARO SANTOS MD March 01, 2018 20:44
--- NOTE | 2018-03-02 02:38 | NUR ---
Nursing Note Patient found wandering in hallway during shift assessment. Patient is confused and intrusive with other patients. Patient is difficult to redirect due to confusion. Patient compliant with medications and assessment. Patient is alert and oriented to self only. Patient in bed resting after assessment.
[2018-03-02 06:13] VITALS: BP 132/56
[2018-03-02] MEDS: POTASSIUM CHLORIDE 20 MEQ TABLET.ER. PO SCH (09:14)
[2018-03-02] MEDS: ASPIRIN 81 MG TAB.CHEW PO SCH (09:14)
[2018-03-02] MEDS: PANTOPRAZOLE 40 MG TABLET. PO SCH (09:14)
[2018-03-02] MEDS: CALCIUM CARB/VIT D3 500/200 TABLET PO SCH (09:14)
[2018-03-02] MEDS: LISINOPRIL 20 MG TABLET PO SCH (09:14)
[2018-03-02] MEDS: SERTRALINE 50 MG TABLET. PO SCH (09:14)
[2018-03-02] MEDS: FUROSEMIDE 20 MG TABLET PO SCH (09:14)
[2018-03-02] MEDS: TOPIRAMATE 25 MG TABLET. PO SCH ×2 (09:15→19:55)
[2018-03-02 16:12] VITALS: BP 140/68
--- NOTE | 2018-03-02 18:03 | NUR ---
Patient spends time sitting in chair near [facility]. During orientation questions, patient stated her name and said that she was in a garden reading a book. Patient also told this nurse that she is , with twins. She told several other staff members the same thing, and that they are due in October. Patient slept well last night and attended all meals. Has conversation with peers, although sometimes they don't make sense. Compliant with medications taken whole with water.
[2018-03-02] MEDS: ATORVASTATIN CALCIUM 10 MG TABLET. PO SCH (19:55)
[2018-03-02] MEDS: QUEtiapine 25 MG TABLET. PO SCH (19:55)
[2018-03-02] MEDS: MIRTAZAPINE 7.5 MG TABLET. PO SCH (19:55)
--- NOTE | 2018-03-02 20:46 | PDOC ---
Exam Note: Sadiq Note: Please also refer to the separate dictated note~for this date of service dictated separately.~Patient seen individually. Discussed the patient with Nursing staff reviewed the chart.~Reviewed interim history and current functioning. Reviewed vital signs,~Labs/ Radiology~and current medications noted below. Continue current treatment with the changes noted in the dictated addendum note Assessment: Vital Signs: Vital Signs Date Time Temp Pulse Resp B/P (MAP) Pulse Ox O2 Delivery O2 Flow Rate FiO2 03/02/18 16:12 97.8 62 18 140/68 (92) 97 03/02/18 06:13 Room Air I&O Intake and Output 03/02/18 07:00 Intake Total 1320 ml Balance 1320 ml Intake Oral 1320 ml Current Medications: Meds: Current Medications Acetaminophen (Tylenol) 650 mg PRN Q6HRS PRN PO PAIN / TEMP; Start 02/19/18 at 18:30; Stop 02/19/18 at 19:01; Status DC Multi-Ingredient Ointment (Analgesic [place]) 1 argelia PRN QID PRN TP MUSCLE PAIN; Start 02/19/18 at 18:30 Al Hydroxide/Mg Hydroxide (Mylanta Plus Xs) 15 ml PRN AFTMEALHC PRN PO DYSPEPSIA; Start 02/19/18 at 18:30 Magnesium Hydroxide (Milk Of Magnesia) 2,400 mg PRN QHS PRN PO CONSTIPATION; Start 02/19/18 at 18:30 Furosemide (Lasix) 20 mg DAILY PO Last administered on 03/02/18at 09:14; Start at 09:00 Lisinopril (Prinivil) 20 mg DAILY PO Last administered on 03/02/18at 09:14; Start 02/20/18 at 09:00 Potassium Chloride (Klor-Con) 20 meq DAILY PO Last administered on 03/02/18at 09: 14; Start 02/20/18 at 09:00 Acetaminophen (Tylenol) 500 mg PRN Q6HRS PRN PO PAIN / TEMP; Start 02/19/18 at 19:15 Acetaminophen (Tylenol) 650 mg PRN Q6HRS PRN [place] PAIN / TEMP; Start 02/19/18 at 19:15 Aspirin (Children'S Aspirin) 81 mg DAILYWBKFT PO Last administered on 03/02/18at 09:14; Start 02/20/18 at 08:00 Calcium/Vitamin D (Oscal D 500mg/ 200uts) 1 tab DAILYWBKFT PO Last administered on 03/02/18 09:14; Start 02/20/18 at 08:00 Acetaminophen/ Hydrocodone Bitart (Lortab 5/325) 1 tab PRN Q6HRS PRN PO PAIN; Start 02/20/18 at 00:00 Pantoprazole Sodium (Protonix) 40 mg DAILYAC PO Last administered on 03/02/18 09:14; Start 02/20/18 at 07:30 Topiramate (Topamax) 75 mg BID PO Last administered on 03/02/18 19:55; Start at 21:00 Sertraline HCl (Zoloft) 25 mg DAILY PO Last administered on 02/23/18 08:44; Start 02/21/18 at 09:00; Stop 02/24/18 at 08:01; Status DC Vitamin D (Vitamin D3) 50,000 unit WEEKLY PO Last administered on 02/28/18 08: 43; Start 02/21/18 at 19:00 Atorvastatin Calcium (Lipitor) 10 mg QHS PO Last administered on 03/02/18 19:55 ; Start 02/21/18 at 21:00 Mirtazapine (Remeron) 7.5 mg QHS PO Last administered on 03/02/18 19:55; Start 02/21/18 at 21:00 Sertraline HCl (Zoloft) 50 mg DAILY PO Last administered on 03/02/18 09:14; Start 02/23/18 at 09:00 Olanzapine (ZyPREXA ZYDIS) 2.5 mg PRN Q2HR PRN PO agitation/psychosis; Start at 15:45 Vitamin D (Vitamin D3) 50,000 unit WEEKLY PO ; Start 02/26/18 at 15:45; Stop at 18:41; Status DC Quetiapine Fumarate (SEROquel) 25 mg QHS PO Last administered on 03/02/18 19:55 ; Start 03/01/18 at 21:00; Stop 03/02/18 at 21:59 Quetiapine Fumarate (SEROquel) 50 mg QHS PO ; Start 03/03/18 at 21:00 Active Scripts Active Reported Acetaminophen 500 Mg Tablet 500 Mg PO PRN Q6HRS PRN Acetaminophen Supp (Acetaminophen) 650 Mg Supp.rect 650 Mg RC PRN Q6HRS PRN [place] 5-325 Tablet (Hydrocodone Bit/Acetaminophen) 1 Each Tablet 1 Tab PO Q6HRS Klor-Con M20 (Potassium Chloride) 20 Meq Tab.er.prt 20 Meq PO DAILY Furosemide 20 Mg Tablet 20 Mg PO DAILY Lisinopril 20 Mg Tablet 20 Mg PO DAILY Calcium 500 + Vit D 400 Tablet (Calcium Carbonate/Vitamin D3) 1 Each Tablet 1 Each PO DAILY Aspirin 81 Mg Tab.chew 81 Mg PO DAILY Omeprazole 20 Mg Capsule.dr 20 Mg PO DAILY Topiramate 25 Mg Tablet 75 Mg PO BID I have reviewed the current psychotropics carefully including drug interactions. Risk benefit ratio favors no change other than as noted in my dictated progress note. Diagnosis: Problems: (1) Anxiety disorder (2) Dementia in Alzheimer's disease with delusions (3) Dementia in Alzheimer's disease with depression (4) Dementia, vascular, with delusions (5) Dementia, vascular, with depression (6) Impulse control disorder KARO SANTOS MD Mar 02, 2018 20:46
--- NOTE | 2018-03-02 23:17 | NUR ---
Nurses note Pt is confused, wandering but pleasant. No agitation takes meds willingly. Makes some delusional comments that she is looking for someone and her car keys to get out of here. Thinks she has appointment to get to and is late. She said she would check back with me later to see if anyone had found her keys.
--- NOTE | 2018-03-03 02:11 | PN ---
DATE: 03/01/2018 This is a late entry for 03/01/2018 covers the elements not covered in my initial note 03/01/2018. SUBJECTIVE: I met with the patient in the evening. Staffed at treatment team meeting with the entire team in the morning. At the treatment team meeting, staff from [facility] attended and we had a lengthy discussion regarding problems prompting this referral, her progressive dementia being intrusive. She is wandering, calm, slept 6-1/2 hours. Appetite about 30%, does not attend groups, gets more confused, intrusive during the evenings. REVIEW OF SYSTEMS: No CV, , pulmonary, eye, ENT system symptoms on review. Reliability poor. MENTAL STATUS EXAM: Oriented to herself. Insight, judgment, recent and remote memory, attention, concentration, fund of knowledge poor, consistent with her diagnosis mentioned in my initial note. IMPRESSION: Major neurocognitive disorder, Alzheimer, vascular with depression, delusion, behavioral disturbance. Rest unchanged. PLAN: After receiving additional information from [facility], it was evident that the patient gets quite agitated, aggressive, disruptive at the nursing facility, paranoid and this worse in the evening. We will go ahead and add Seroquel 25 mg p.o. at bedtime. Rest psychotropics unchanged from initial note. KARO SANTOS MD DR: JERILYN/tommy JOB#: [id number] / [id number]
--- NOTE | 2018-03-03 02:12 | PN ---
DATE: 02/28/2018 This is a late entry for 02/28/2018 and covers the elements not covered in my initial note of 02/28/2018. SUBJECTIVE: I met with the patient in the evening. Overall, the patient remains confused, somewhat anxious, restless at times, resistive to medications, taking it later. REVIEW OF SYSTEMS: No CV, , pulmonary, eye, ENT system symptoms on review. Reliability poor. MENTAL STATUS EXAM: Oriented to herself. Insight, judgment, recent and remote memory, attention, concentration, fund of knowledge poor, consistent with her diagnosis mentioned in my initial note. PLAN: Continue psychotropics from initial note, may need to increase Zoloft depending on her progress. MAN Michelle SANTOS MD DR: JERILYN/tommy JOB#: [id number] / [id number]
[2018-03-03 06:20] VITALS: BP 164/69
[2018-03-03 07:34] LABS: BASO % 1 % (0-3); EOS # 0.2 x10^3/uL (0.0-0.7); EOS % 4 % (0-3); HEMATOCRIT 32.9 % (36.0-47.0); LYMPH # 2.6 x10^3/uL (1.0-4.8); LYMPH % 43 % (24-48); MEAN CORPUSCULAR HEMOGLOBIN 32 pg (25-35); MEAN CORPUSCULAR HGB CONC 33 g/dL (31-37); MEAN CORPUSCULAR VOLUME 95 fL (79-100); MONO # 0.7 x10^3/uL (0.0-1.1); MONO % 11 % (0-9); NEUT # 2.5 x10^3uL (1.8-7.7); NEUT % 42 % (31-73); PLATELET COUNT 138 x10^3/uL (140-400); RED BLOOD COUNT 3.46 x10^6/uL (3.50-5.40); RED CELL DISTRIBUTION WIDTH 14.6 % (11.5-14.5)
[2018-03-03] MEDS: SERTRALINE 50 MG TABLET. PO SCH (07:36)
[2018-03-03] MEDS: POTASSIUM CHLORIDE 20 MEQ TABLET.ER. PO SCH (07:36)
[2018-03-03] MEDS: FUROSEMIDE 20 MG TABLET PO SCH (07:36)
[2018-03-03] MEDS: TOPIRAMATE 25 MG TABLET. PO SCH ×2 (07:38→20:27)
[2018-03-03] MEDS: ASPIRIN 81 MG TAB.CHEW PO SCH (07:38)
[2018-03-03] MEDS: PANTOPRAZOLE 40 MG TABLET. PO SCH (07:38)
[2018-03-03] MEDS: LISINOPRIL 20 MG TABLET PO SCH (07:38)
[2018-03-03] MEDS: CALCIUM CARB/VIT D3 500/200 TABLET PO SCH (07:38)
[2018-03-03 07:48] LABS: ALBUMIN 3.3 g/dL (3.4-5.0); ALBUMIN/GLOBULIN RATIO 0.9 (1.0-1.7); CREATININE 1.3 mg/dL (0.6-1.0); GFR 39.7; POTASSIUM 4.4 mmol/L (3.5-5.1); TOTAL BILIRUBIN 0.2 mg/dL (0.2-1.0); TOTAL PROTEIN 6.8 g/dL (6.4-8.2)
--- NOTE | 2018-03-03 08:00 | NUR ---
Patient is non compliant with blood draw this morning yelling and was hitting and kicking staff.
--- NOTE | 2018-03-03 10:03 | NUR ---
Behavior Intervention Response and Plan: BIRP Note: Behavior: Assumed Care of patient, patient located in at shift change. Patient exhibited the following behavior , Wandering, Compliant. Brief assessment on rounds of vital signs, medication needs, lab studies, and pain. Treatment plan problems . Intervention: Patient assessed and the following interventions initiated safety checks 15 Minute Checks Head to toe Assessment , Cognitive Assessment , Medications. Response: After interactions and interventions patient responded in the following manner, Resistive , Exit Seeking ,Able to Focus on Task. Continue to assess behaviors and condition will continue to monitor throughout the shift as needed. Patient educated on ADL's, and hand hygiene. 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 Continue to assess patient for changes in above assessment. Monitor for medication needs, pain, and safety concerns. Hourly rounding performed to ensure safe environment.
--- NOTE | 2018-03-03 10:06 | NUR ---
Behavior Intervention Response and Plan: BIRP Note: Behavior: Assumed Care of patient, patient located in Dining Room at shift change. Patient exhibited the following behavior Calm, , Cooperative. Brief assessment on rounds of vital signs, medication needs, lab studies, and pain. Treatment plan problems . Intervention: Patient assessed and the following interventions initiated safety checks 15 Minute Checks Head to toe Assessment , Cognitive Assessment , Medications. Response: After interactions and interventions patient responded in the following manner, Compliant , Cooperative ,Social. Continue to assess behaviors and condition will continue to monitor throughout the shift as needed. Patient educated on ADL's, and hand hygiene. 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 Continue to assess patient for changes in above assessment. Monitor for medication needs, pain, and safety concerns. Hourly rounding performed to ensure safe environment.
[2018-03-03 16:42] VITALS: BP 134/52
[2018-03-03] MEDS: MIRTAZAPINE 7.5 MG TABLET. PO SCH (20:27)
[2018-03-03] MEDS: ATORVASTATIN CALCIUM 10 MG TABLET. PO SCH (20:27)
[2018-03-03] MEDS: QUEtiapine 50 MG TABLET. PO SCH (20:28)
--- NOTE | 2018-03-03 22:11 | PDOC ---
Exam Note: Sadiq Note: Please also refer to the separate dictated note~for this date of service dictated separately.~Patient seen individually. Discussed the patient with Nursing staff reviewed the chart.~Reviewed interim history and current functioning. Reviewed vital signs,~Labs/ Radiology~and current medications noted below. Continue current treatment with the changes noted in the dictated addendum note Assessment: Vital Signs: Vital Signs Date Time Temp Pulse Resp B/P (MAP) Pulse Ox O2 Delivery O2 Flow Rate FiO2 03/03/18 16:42 97.1 73 18 134/52 (79) 100 03/02/18 06:13 Room Air I&O Intake and Output 03/03/18 07:00 Intake Total 960 ml Balance 960 ml Intake Oral 960 ml Labs: Laboratory Tests Test 03/03/18 07:18 White Blood Count 6.0 x10^3/uL (4.0-11.0) Red Blood Count 3.46 x10^6/uL (3.50-5.40) L Hemoglobin 11.0 g/dL (12.0-15.5) L Hematocrit 32.9 % (36.0-47.0) L Mean Corpuscular Volume 95 fL (79-100) Mean Corpuscular Hemoglobin 32 pg (25-35) Mean Corpuscular Hemoglobin Concent 33 g/dL (31-37) Red Cell Distribution Width 14.6 % (11.5-14.5) H Platelet Count 138 x10^3/uL (140-400) L Neutrophils (%) (Auto) 42 % (31-73) Lymphocytes (%) (Auto) 43 % (24-48) Monocytes (%) (Auto) 11 % (0-9) H Eosinophils (%) (Auto) 4 % (0-3) H Basophils (%) (Auto) 1 % (0-3) Neutrophils # (Auto) 2.5 x10^3uL (1.8-7.7) Lymphocytes # (Auto) 2.6 x10^3/uL (1.0-4.8) Monocytes # (Auto) 0.7 x10^3/uL (0.0-1.1) Eosinophils # (Auto) 0.2 x10^3/uL (0.0-0.7) Basophils # (Auto) 0.0 x10^3/uL (0.0-0.2) Sodium Level 143 mmol/L (136-145) Potassium Level 4.4 mmol/L (3.5-5.1) Chloride Level 110 mmol/L (98-107) H Carbon Dioxide Level 25 mmol/L (21-32) Anion Gap 8 (6-14) Blood Urea Nitrogen 40 mg/dL (7-20) H Creatinine 1.3 mg/dL (0.6-1.0) H Estimated GFR (Cockcroft-Gault) 39.7 BUN/Creatinine Ratio 31 (6-20) H Glucose Level 95 mg/dL (70-99) Calcium Level 9.0 mg/dL (8.5-10.1) Total Bilirubin 0.2 mg/dL (0.2-1.0) Aspartate Amino Transferase (AST) 15 U/L (15-37) Alanine Aminotransferase (ALT) 17 U/L (14-59) Alkaline Phosphatase 67 U/L (46-116) Total Protein 6.8 g/dL (6.4-8.2) Albumin 3.3 g/dL (3.4-5.0) L Albumin/Globulin Ratio 0.9 (1.0-1.7) L Current Medications: Meds: Current Medications Acetaminophen (Tylenol) 650 mg PRN Q6HRS PRN PO PAIN / TEMP; Start 02/19/18 at 18:30; Stop 02/19/18 at 19:01; Status DC Multi-Ingredient Ointment (Analgesic [place]) 1 argelia PRN QID PRN TP MUSCLE PAIN; Start 02/19/18 at 18:30 Al Hydroxide/Mg Hydroxide (Mylanta Plus Xs) 15 ml PRN AFTMEALHC PRN PO DYSPEPSIA; Start 02/19/18 at 18:30 Magnesium Hydroxide (Milk Of Magnesia) 2,400 mg PRN QHS PRN PO CONSTIPATION; Start 02/19/18 at 18:30 Furosemide (Lasix) 20 mg DAILY PO Last administered on 03/03/18at 07:36; Start at 09:00 Lisinopril (Prinivil) 20 mg DAILY PO Last administered on 03/03/18at 07:38; Start 02/20/18 at 09:00 Potassium Chloride (Klor-Con) 20 meq DAILY PO Last administered on 03/03/18at 07: 36; Start 02/20/18 at 09:00 Acetaminophen (Tylenol) 500 mg PRN Q6HRS PRN PO PAIN / TEMP; Start 02/19/18 at 19:15 Acetaminophen (Tylenol) 650 mg PRN Q6HRS PRN [place] PAIN / TEMP; Start 02/19/18 at 19:15 Aspirin (Children'S Aspirin) 81 mg DAILYWBKFT PO Last administered on 03/03/18 07:38; Start 02/20/18 at 08:00 Calcium/Vitamin D (Oscal D 500mg/ 200uts) 1 tab DAILYWBKFT PO Last administered on 03/03/18 07:38; Start 02/20/18 at 08:00 Acetaminophen/ Hydrocodone Bitart (Lortab 5/325) 1 tab PRN Q6HRS PRN PO PAIN; Start 02/20/18 at 00:00 Pantoprazole Sodium (Protonix) 40 mg DAILYAC PO Last administered on 03/03/18 07:38; Start 02/20/18 at 07:30 Topiramate (Topamax) 75 mg BID PO Last administered on 03/03/18 20:27; Start at 21:00 Sertraline HCl (Zoloft) 25 mg DAILY PO Last administered on 02/23/18 08:44; Start 02/21/18 at 09:00; Stop 02/24/18 at 08:01; Status DC Vitamin D (Vitamin D3) 50,000 unit WEEKLY PO Last administered on 02/28/18 08: 43; Start 02/21/18 at 19:00 Atorvastatin Calcium (Lipitor) 10 mg QHS PO Last administered on 03/03/18 20:27 ; Start 02/21/18 at 21:00 Mirtazapine (Remeron) 7.5 mg QHS PO Last administered on 03/03/18 20:27; Start 02/21/18 at 21:00 Sertraline HCl (Zoloft) 50 mg DAILY PO Last administered on 03/03/18 07:36; Start 02/23/18 at 09:00 Olanzapine (ZyPREXA ZYDIS) 2.5 mg PRN Q2HR PRN PO agitation/psychosis; Start at 15:45 Vitamin D (Vitamin D3) 50,000 unit WEEKLY PO ; Start 02/26/18 at 15:45; Stop at 18:41; Status DC Quetiapine Fumarate (SEROquel) 25 mg QHS PO Last administered on 03/02/18at 19:55 ; Start 03/01/18 at 21:00; Stop 03/02/18 at 21:59; Status DC Quetiapine Fumarate (SEROquel) 50 mg QHS PO Last administered on 03/03/18at 20:28 ; Start 03/03/18 at 21:00 Active Scripts Active Reported Acetaminophen 500 Mg Tablet 500 Mg PO PRN Q6HRS PRN Acetaminophen Supp (Acetaminophen) 650 Mg Supp.rect 650 Mg RC PRN Q6HRS PRN [place] 5-325 Tablet (Hydrocodone Bit/Acetaminophen) 1 Each Tablet 1 Tab PO Q6HRS Klor-Con M20 (Potassium Chloride) 20 Meq Tab.er.prt 20 Meq PO DAILY Furosemide 20 Mg Tablet 20 Mg PO DAILY Lisinopril 20 Mg Tablet 20 Mg PO DAILY Calcium 500 + Vit D 400 Tablet (Calcium Carbonate/Vitamin D3) 1 Each Tablet 1 Each PO DAILY Aspirin 81 Mg Tab.chew 81 Mg PO DAILY Omeprazole 20 Mg Capsule.dr 20 Mg PO DAILY Topiramate 25 Mg Tablet 75 Mg PO BID I have reviewed the current psychotropics carefully including drug interactions. Risk benefit ratio favors no change other than as noted in my dictated progress note. Diagnosis: Problems: (1) Anxiety disorder (2) Dementia in Alzheimer's disease with delusions (3) Dementia in Alzheimer's disease with depression (4) Dementia, vascular, with delusions (5) Dementia, vascular, with depression (6) Impulse control disorder KARO SANTOS MD Mar 03, 2018 22:11
--- NOTE | 2018-03-04 00:37 | NUR ---
Behavior Intervention Response and Plan: BIRP Note: Behavior: Assumed Care of patient, patient located in Hallway at shift change. Patient exhibited the following behavior Restless, Disorganized, Cooperative. Brief assessment on rounds of vital signs, medication needs, lab studies, and pain. Treatment plan problems :1-2 Intervention: Patient assessed and the following interventions initiated safety checks 15 Minute Checks Cognitive Assessment , Head to toe Assessment , Medications. Response: After interactions and interventions patient responded in the following manner, Disorganized , Able to Focus on Task ,Compliant. Continue to assess behaviors and condition will continue to monitor throughout the shift as needed. Patient educated on ADL's, and hand hygiene. 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 Continue to assess patient for changes in above assessment. Monitor for medication needs, pain, and safety concerns. Hourly rounding performed to ensure safe environment.
[2018-03-04 05:58] VITALS: BP 159/70
[2018-03-04] MEDS: CALCIUM CARB/VIT D3 500/200 TABLET PO SCH (07:42)
[2018-03-04] MEDS: POTASSIUM CHLORIDE 20 MEQ TABLET.ER. PO SCH (07:42)
[2018-03-04] MEDS: FUROSEMIDE 20 MG TABLET PO SCH (07:42)
[2018-03-04] MEDS: ASPIRIN 81 MG TAB.CHEW PO SCH (07:43)
[2018-03-04] MEDS: LISINOPRIL 20 MG TABLET PO SCH (07:43)
[2018-03-04] MEDS: PANTOPRAZOLE 40 MG TABLET. PO SCH (07:43)
[2018-03-04] MEDS: TOPIRAMATE 25 MG TABLET. PO SCH ×2 (07:43→20:26)
[2018-03-04] MEDS: SERTRALINE 50 MG TABLET. PO SCH (07:43)
[2018-03-04 16:33] VITALS: BP 130/60
--- NOTE | 2018-03-04 20:04 | PDOC ---
Exam Note: Sadiq Note: Please also refer to the separate dictated note~for this date of service dictated separately.~Patient seen individually. Discussed the patient with Nursing staff reviewed the chart.~Reviewed interim history and current functioning. Reviewed vital signs,~Labs/ Radiology~and current medications noted below. Continue current treatment with the changes noted in the dictated addendum note Assessment: Vital Signs: Vital Signs Date Time Temp Pulse Resp B/P (MAP) Pulse Ox O2 Delivery O2 Flow Rate FiO2 03/04/18 16:33 97.9 77 18 130/60 (83) 98 03/02/18 06:13 Room Air I&O Intake and Output 03/04/18 07:00 Intake Total 720 ml Balance 720 ml Intake Oral 720 ml Current Medications: Meds: Current Medications Acetaminophen (Tylenol) 650 mg PRN Q6HRS PRN PO PAIN / TEMP; Start 02/19/18 at 18:30; Stop 02/19/18 at 19:01; Status DC Multi-Ingredient Ointment (Analgesic [place]) 1 argelia PRN QID PRN TP MUSCLE PAIN; Start 02/19/18 at 18:30 Al Hydroxide/Mg Hydroxide (Mylanta Plus Xs) 15 ml PRN AFTMEALHC PRN PO DYSPEPSIA; Start 02/19/18 at 18:30 Magnesium Hydroxide (Milk Of Magnesia) 2,400 mg PRN QHS PRN PO CONSTIPATION; Start 02/19/18 at 18:30 Furosemide (Lasix) 20 mg DAILY PO Last administered on 03/04/18at 07:42; Start at 09:00 Lisinopril (Prinivil) 20 mg DAILY PO Last administered on 03/04/18at 07:43; Start 02/20/18 at 09:00 Potassium Chloride (Klor-Con) 20 meq DAILY PO Last administered on 03/04/18at 07: 42; Start 02/20/18 at 09:00 Acetaminophen (Tylenol) 500 mg PRN Q6HRS PRN PO PAIN / TEMP; Start 02/19/18 at 19:15 Acetaminophen (Tylenol) 650 mg PRN Q6HRS PRN [place] PAIN / TEMP; Start 02/19/18 at 19:15 Aspirin (Children'S Aspirin) 81 mg DAILYWBKFT PO Last administered on 03/04/18at 07:43; Start 02/20/18 at 08:00 Calcium/Vitamin D (Oscal D 500mg/ 200uts) 1 tab DAILYWBKFT PO Last administered on 03/04/18 07:42; Start 02/20/18 at 08:00 Acetaminophen/ Hydrocodone Bitart (Lortab 5/325) 1 tab PRN Q6HRS PRN PO PAIN; Start 02/20/18 at 00:00 Pantoprazole Sodium (Protonix) 40 mg DAILYAC PO Last administered on 03/04/18 07:43; Start 02/20/18 at 07:30 Topiramate (Topamax) 75 mg BID PO Last administered on 03/04/18 07:43; Start at 21:00 Sertraline HCl (Zoloft) 25 mg DAILY PO Last administered on 02/23/18 08:44; Start 02/21/18 at 09:00; Stop 02/24/18 at 08:01; Status DC Vitamin D (Vitamin D3) 50,000 unit WEEKLY PO Last administered on 02/28/18 08: 43; Start 02/21/18 at 19:00 Atorvastatin Calcium (Lipitor) 10 mg QHS PO Last administered on 03/03/18 20:27 ; Start 02/21/18 at 21:00 Mirtazapine (Remeron) 7.5 mg QHS PO Last administered on 03/03/18 20:27; Start 02/21/18 at 21:00 Sertraline HCl (Zoloft) 50 mg DAILY PO Last administered on 03/04/18 07:43; Start 02/23/18 at 09:00 Olanzapine (ZyPREXA ZYDIS) 2.5 mg PRN Q2HR PRN PO agitation/psychosis; Start at 15:45 Vitamin D (Vitamin D3) 50,000 unit WEEKLY PO ; Start 02/26/18 at 15:45; Stop at 18:41; Status DC Quetiapine Fumarate (SEROquel) 25 mg QHS PO Last administered on 03/02/18at 19:55 ; Start 03/01/18 at 21:00; Stop 03/02/18 at 21:59; Status DC Quetiapine Fumarate (SEROquel) 50 mg QHS PO Last administered on 6/2/18at 20:28 ; Start 03/03/18 at 21:00 Active Scripts Active Reported Acetaminophen 500 Mg Tablet 500 Mg PO PRN Q6HRS PRN Acetaminophen Supp (Acetaminophen) 650 Mg Supp.rect 650 Mg RC PRN Q6HRS PRN [place] 5-325 Tablet (Hydrocodone Bit/Acetaminophen) 1 Each Tablet 1 Tab PO Q6HRS Klor-Con M20 (Potassium Chloride) 20 Meq Tab.er.prt 20 Meq PO DAILY Furosemide 20 Mg Tablet 20 Mg PO DAILY Lisinopril 20 Mg Tablet 20 Mg PO DAILY Calcium 500 + Vit D 400 Tablet (Calcium Carbonate/Vitamin D3) 1 Each Tablet 1 Each PO DAILY Aspirin 81 Mg Tab.chew 81 Mg PO DAILY Omeprazole 20 Mg Capsule.dr 20 Mg PO DAILY Topiramate 25 Mg Tablet 75 Mg PO BID I have reviewed the current psychotropics carefully including drug interactions. Risk benefit ratio favors no change other than as noted in my dictated progress note. Diagnosis: Problems: (1) Anxiety disorder (2) Dementia in Alzheimer's disease with delusions (3) Dementia in Alzheimer's disease with depression (4) Dementia, vascular, with delusions (5) Dementia, vascular, with depression (6) Impulse control disorder KARO SANTOS MD Mar 04, 2018 20:04
[2018-03-04] MEDS: MIRTAZAPINE 7.5 MG TABLET. PO SCH (20:25)
[2018-03-04] MEDS: QUEtiapine 50 MG TABLET. PO SCH (20:25)
[2018-03-04] MEDS: ATORVASTATIN CALCIUM 10 MG TABLET. PO SCH (20:26)
--- NOTE | 2018-03-04 23:25 | NUR ---
Behavior Intervention Response and Plan: BIRP Note: Behavior: Assumed Care of patient, patient located in Patient Room at shift change. Patient exhibited the following behavior Calm, Able to Focus on Task, Interactive. Brief assessment on rounds of vital signs, medication needs, lab studies, and pain. Treatment plan problems :1-2 Intervention: Patient assessed and the following interventions initiated safety checks 15 Minute Checks Cognitive Assessment , Head to toe Assessment , Medications. Response: After interactions and interventions patient responded in the following manner, Cooperative , Social ,Cooperative. Continue to assess behaviors and condition will continue to monitor throughout the shift as needed. Patient educated on ADL's, and hand hygiene. 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 Continue to assess patient for changes in above assessment. Monitor for medication needs, pain, and safety concerns. Hourly rounding performed to ensure safe environment.
[2018-03-05 06:00] VITALS: BP 131/55
[2018-03-05] MEDS: LISINOPRIL 20 MG TABLET PO SCH (08:18)
[2018-03-05] MEDS: POTASSIUM CHLORIDE 20 MEQ TABLET.ER. PO SCH (08:18)
[2018-03-05] MEDS: ASPIRIN 81 MG TAB.CHEW PO SCH (08:18)
[2018-03-05] MEDS: SERTRALINE 50 MG TABLET. PO SCH (08:18)
[2018-03-05] MEDS: FUROSEMIDE 20 MG TABLET PO SCH (08:18)
[2018-03-05] MEDS: CALCIUM CARB/VIT D3 500/200 TABLET PO SCH (08:18)
[2018-03-05] MEDS: PANTOPRAZOLE 40 MG TABLET. PO SCH (08:20)
[2018-03-05] MEDS: TOPIRAMATE 25 MG TABLET. PO SCH ×2 (08:20→20:02)
--- NOTE | 2018-03-05 11:00 | NUR ---
Behavior Intervention Response and Plan: BIRP Note: Behavior: Assumed Care of patient, patient located in Hallway at shift change. Patient exhibited the following behavior Wandering, Disorganized, Restless. Brief assessment on rounds of vital signs, medication needs, lab studies, and pain. Treatment plan problems 1 & 2. Intervention: Patient assessed and the following interventions initiated safety checks 15 Minute Checks Cognitive Assessment , Head to toe Assessment , Medications. Response: After interactions and interventions patient responded in the following manner, Calm , Appropriate ,Compliant. Continue to assess behaviors and condition will continue to monitor throughout the shift as needed. Patient educated on ADL's, and hand hygiene. 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 Continue to assess patient for changes in above assessment. Monitor for medication needs, pain, and safety concerns. Hourly rounding performed to ensure safe environment.
[2018-03-05 16:44] VITALS: BP 122/49
[2018-03-05] MEDS: ATORVASTATIN CALCIUM 10 MG TABLET. PO SCH (20:02)
[2018-03-05] MEDS: QUEtiapine 50 MG TABLET. PO SCH (20:02)
[2018-03-05] MEDS: MIRTAZAPINE 7.5 MG TABLET. PO SCH (20:02)
--- NOTE | 2018-03-05 20:55 | PDOC ---
Exam Note: Sadiq Note: Please also refer to the separate dictated note~for this date of service dictated separately.~Patient seen individually. Discussed the patient with Nursing staff reviewed the chart.~Reviewed interim history and current functioning. Reviewed vital signs,~Labs/ Radiology~and current medications noted below. Continue current treatment with the changes noted in the dictated addendum note Assessment: Vital Signs: Vital Signs Date Time Temp Pulse Resp B/P (MAP) Pulse Ox O2 Delivery O2 Flow Rate FiO2 03/05/18 16:44 97.4 76 20 122/49 (73) 98 Room Air I&O Intake and Output 03/05/18 07:00 Intake Total 1080 ml Balance 1080 ml Intake Oral 1080 ml Current Medications: Meds: Current Medications Acetaminophen (Tylenol) 650 mg PRN Q6HRS PRN PO PAIN / TEMP; Start 02/19/18 at 18:30; Stop 02/19/18 at 19:01; Status DC Multi-Ingredient Ointment (Analgesic [place]) 1 argelia PRN QID PRN TP MUSCLE PAIN; Start 02/19/18 at 18:30 Al Hydroxide/Mg Hydroxide (Mylanta Plus Xs) 15 ml PRN AFTMEALHC PRN PO DYSPEPSIA; Start 02/19/18 at 18:30 Magnesium Hydroxide (Milk Of Magnesia) 2,400 mg PRN QHS PRN PO CONSTIPATION; Start 02/19/18 at 18:30 Furosemide (Lasix) 20 mg DAILY PO Last administered on 03/05/18at 08:18; Start at 09:00 Lisinopril (Prinivil) 20 mg DAILY PO Last administered on 03/05/18at 08:18; Start 02/20/18 at 09:00 Potassium Chloride (Klor-Con) 20 meq DAILY PO Last administered on 03/05/18at 08: 18; Start 02/20/18 at 09:00 Acetaminophen (Tylenol) 500 mg PRN Q6HRS PRN PO PAIN / TEMP; Start 02/19/18 at 19:15 Acetaminophen (Tylenol) 650 mg PRN Q6HRS PRN [place] PAIN / TEMP; Start 02/19/18 at 19:15 Aspirin (Children'S Aspirin) 81 mg DAILYWBKFT PO Last administered on 03/05/18at 08:18; Start 02/20/18 at 08:00 Calcium/Vitamin D (Oscal D 500mg/ 200uts) 1 tab DAILYWBKFT PO Last administered on 03/05/18 08:18; Start 02/20/18 at 08:00 Acetaminophen/ Hydrocodone Bitart (Lortab 5/325) 1 tab PRN Q6HRS PRN PO PAIN; Start 02/20/18 at 00:00 Pantoprazole Sodium (Protonix) 40 mg DAILYAC PO Last administered on 03/05/18at 08:20; Start 02/20/18 at 07:30 Topiramate (Topamax) 75 mg BID PO Last administered on 03/05/18 20:02; Start at 21:00 Sertraline HCl (Zoloft) 25 mg DAILY PO Last administered on 02/23/18 08:44; Start 02/21/18 at 09:00; Stop 02/24/18 at 08:01; Status DC Vitamin D (Vitamin D3) 50,000 unit WEEKLY PO Last administered on 02/28/18at 08: 43; Start 02/21/18 at 19:00 Atorvastatin Calcium (Lipitor) 10 mg QHS PO Last administered on 03/05/18 20:02 ; Start 02/21/18 at 21:00 Mirtazapine (Remeron) 7.5 mg QHS PO Last administered on 03/05/18 20:02; Start 02/21/18 at 21:00 Sertraline HCl (Zoloft) 50 mg DAILY PO Last administered on 03/05/18 08:18; Start 02/23/18 at 09:00; Stop 03/05/18 at 19:07; Status DC Olanzapine (ZyPREXA ZYDIS) 2.5 mg PRN Q2HR PRN PO agitation/psychosis; Start at 15:45 Vitamin D (Vitamin D3) 50,000 unit WEEKLY PO ; Start 02/26/18 at 15:45; Stop at 18:41; Status DC Quetiapine Fumarate (SEROquel) 25 mg QHS PO Last administered on 03/02/18at 19:55 ; Start 03/01/18 at 21:00; Stop 03/02/18 at 21:59; Status DC Quetiapine Fumarate (SEROquel) 50 mg QHS PO Last administered on 03/05/18at 20:02 ; Start 03/03/18 at 21:00 Sertraline HCl (Zoloft) 75 mg DAILY PO ; Start 03/06/18 at 09:00 Active Scripts Active Reported Acetaminophen 500 Mg Tablet 500 Mg PO PRN Q6HRS PRN Acetaminophen Supp (Acetaminophen) 650 Mg Supp.rect 650 Mg RC PRN Q6HRS PRN [place] 5-325 Tablet (Hydrocodone Bit/Acetaminophen) 1 Each Tablet 1 Tab PO Q6HRS Klor-Con M20 (Potassium Chloride) 20 Meq Tab.er.prt 20 Meq PO DAILY Furosemide 20 Mg Tablet 20 Mg PO DAILY Lisinopril 20 Mg Tablet 20 Mg PO DAILY Calcium 500 + Vit D 400 Tablet (Calcium Carbonate/Vitamin D3) 1 Each Tablet 1 Each PO DAILY Aspirin 81 Mg Tab.chew 81 Mg PO DAILY Omeprazole 20 Mg Capsule.dr 20 Mg PO DAILY Topiramate 25 Mg Tablet 75 Mg PO BID I have reviewed the current psychotropics carefully including drug interactions. Risk benefit ratio favors no change other than as noted in my dictated progress note. Diagnosis: Problems: (1) Anxiety disorder (2) Dementia in Alzheimer's disease with delusions (3) Dementia in Alzheimer's disease with depression (4) Dementia, vascular, with delusions (5) Dementia, vascular, with depression (6) Impulse control disorder KARO SANTOS MD Mar 05, 2018 20:55
--- NOTE | 2018-03-05 21:52 | PN ---
DATE: 03/02/2018 This is a late entry for 03/02/2018 covers elements not covered in my initial note of 03/02/2018. SUBJECTIVE: I met with the patient in the evening. The patient remains confused, delusional, believed she has had twins this October. Previous night, she was intrusive, getting into other patient's rooms. Later in the day, she was in the garden reading her book is what she perceived she was doing and this is not accurate at all. REVIEW OF SYSTEMS: No CV, , pulmonary, eye, ENT system symptoms on review. Reliability poor. MENTAL STATUS EXAM: Oriented to herself. Insight, judgment, recent and remote memory, attention, concentration, fund of knowledge poor, consistent with her diagnosis mentioned in my initial note: Major neurocognitive disorder, Alzheimer, vascular with delusion, depression, behavioral disturbance. PLAN: Seroquel is 25 mg at bedtime. We will increase to 50 mg p.o. at bedtime. Continue rest unchanged. KARO SANTOS MD DR: JERILYN/tommy JOB#: [id number] / [id number]
--- NOTE | 2018-03-05 22:07 | PN ---
DATE: 03/03/2018 This late entry 03/03/2018 covers elements not covered in my initial note 03/03/2018. SUBJECTIVE: Met with the patient in the evening. The patient remains confused, doing better, but got agitated during blood draw, was hitting, kicking, yelling. Rest of the day was alright. REVIEW OF SYSTEMS: No CV, , pulmonary, eye, ENT system symptoms on review. Reliability poor. MENTAL STATUS EXAM: Oriented to herself. Insight, judgment, recent and remote memory, attention, concentration, fund of knowledge poor, consistent with her diagnosis mentioned in my initial note. PLAN: Continue psychotropics from my initial note. MAN Michelle SANTOS MD DR: JERILYN/tommy JOB#: [id number] / [id number]
--- NOTE | 2018-03-05 23:22 | NUR ---
Behavior Intervention Response and Plan: BIRP Note: Behavior: Assumed Care of patient, patient located in Day Room at shift change. Patient exhibited the following behavior Calm, Compliant, Cooperative. Brief assessment on rounds of vital signs, medication needs, lab studies, and pain. Treatment plan problems . Intervention: Patient assessed and the following interventions initiated safety checks 15 Minute Checks Head to toe Assessment , Cognitive Assessment , Medications. Response: After interactions and interventions patient responded in the following manner, Able to Focus on Task , Compliant ,Cooperative. Continue to assess behaviors and condition will continue to monitor throughout the shift as needed. Patient educated on ADL's, and hand hygiene. 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 Continue to assess patient for changes in above assessment. Monitor for medication needs, pain, and safety concerns. Hourly rounding performed to ensure safe environment.
[2018-03-06 06:13] VITALS: BP 173/53
[2018-03-06] MEDS: TOPIRAMATE 25 MG TABLET. PO SCH ×2 (07:59→20:04)
[2018-03-06] MEDS: CALCIUM CARB/VIT D3 500/200 TABLET PO SCH (07:59)
[2018-03-06] MEDS: FUROSEMIDE 20 MG TABLET PO SCH (08:00)
[2018-03-06] MEDS: PANTOPRAZOLE 40 MG TABLET. PO SCH (08:00)
[2018-03-06] MEDS: POTASSIUM CHLORIDE 20 MEQ TABLET.ER. PO SCH (08:00)
[2018-03-06] MEDS: ASPIRIN 81 MG TAB.CHEW PO SCH (08:00)
[2018-03-06] MEDS: LISINOPRIL 20 MG TABLET PO SCH (08:00)
[2018-03-06] MEDS: SERTRALINE 50 MG TABLET. PO SCH (08:03)
--- NOTE | 2018-03-06 08:55 | NUR ---
Behavior Intervention Response and Plan: BIRP Note: Behavior: Assumed Care of patient, patient located in Day Room at shift change. Patient exhibited the following behavior Wandering, Restless, Disorganized. Brief assessment on rounds of vital signs, medication needs, lab studies, and pain. Treatment plan problems 1 & 2. Intervention: Patient assessed and the following interventions initiated safety checks 15 Minute Checks Cognitive Assessment , Head to toe Assessment , Medications. Response: After interactions and interventions patient responded in the following manner, Calm , Appropriate ,Compliant. Continue to assess behaviors and condition will continue to monitor throughout the shift as needed. Patient educated on ADL's, and hand hygiene. 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 Continue to assess patient for changes in above assessment. Monitor for medication needs, pain, and safety concerns. Hourly rounding performed to ensure safe environment.
--- NOTE | 2018-03-06 10:00 | PN ---
DATE: 03/04/2018 This is a late entry for 03/04/2018 and covers elements not covered in my initial note of 03/04/2018. I met with the patient in the afternoon. The patient remains quite confused, intermittently anxious, agitated, talking about having babies and having dreams. Alert, oriented to herself. REVIEW OF SYSTEMS: No CV, , pulmonary, eye, ENT system symptoms on review. Reliability poor. MENTAL STATUS EXAM: Oriented to herself. Insight, judgment, recent and remote memory, attention, concentration, fund of knowledge poor, consistent with her diagnosis as mentioned in my initial note. PLAN: No change from a psychiatric standpoint. Maintain Zoloft, Topamax, Remeron, Seroquel along with Zyprexa p.r.n. MAN Michelle SANTOS MD DR: JERILYN/tommy JOB#: [id number] / [id number]
--- NOTE | 2018-03-06 13:30 | NUR ---
Patient is sitting in the hallway, appears to be hallucinating, singing and talking to an empty area. Will continue to monitor.
--- NOTE | 2018-03-06 14:29 | NUR ---
SW faxed updated clinical notes to pt's facility w/[facility] dc date for end of this week.
[2018-03-06 16:59] VITALS: BP 140/57
[2018-03-06] MEDS: ATORVASTATIN CALCIUM 10 MG TABLET. PO SCH (20:04)
[2018-03-06] MEDS: QUEtiapine 50 MG TABLET. PO SCH (20:04)
[2018-03-06] MEDS: MIRTAZAPINE 7.5 MG TABLET. PO SCH (20:04)
--- NOTE | 2018-03-06 20:58 | PDOC ---
Exam Note: Sadiq Note: Please also refer to the separate dictated note~for this date of service dictated separately.~Patient seen individually. Discussed the patient with Nursing staff reviewed the chart.~Reviewed interim history and current functioning. Reviewed vital signs,~Labs/ Radiology~and current medications noted below. Continue current treatment with the changes noted in the dictated addendum note Assessment: Vital Signs: Vital Signs Date Time Temp Pulse Resp B/P (MAP) Pulse Ox O2 Delivery O2 Flow Rate FiO2 03/06/18 16:59 97.2 76 18 140/57 (84) 98 03/05/18 16:44 Room Air I&O Intake and Output 03/06/18 07:00 Intake Total 1200 ml Balance 1200 ml Intake Oral 1200 ml Current Medications: Meds: Current Medications Acetaminophen (Tylenol) 650 mg PRN Q6HRS PRN PO PAIN / TEMP; Start 02/19/18 at 18:30; Stop 02/19/18 at 19:01; Status DC Multi-Ingredient Ointment (Analgesic [place]) 1 argelia PRN QID PRN TP MUSCLE PAIN; Start 02/19/18 at 18:30 Al Hydroxide/Mg Hydroxide (Mylanta Plus Xs) 15 ml PRN AFTMEALHC PRN PO DYSPEPSIA; Start 02/19/18 at 18:30 Magnesium Hydroxide (Milk Of Magnesia) 2,400 mg PRN QHS PRN PO CONSTIPATION Last administered on 03/06/18at 17:09; Start 02/19/18 at 18:30 Furosemide (Lasix) 20 mg DAILY PO Last administered on 03/06/18at 08:00; Start at 09:00 Lisinopril (Prinivil) 20 mg DAILY PO Last administered on 03/06/18at 08:00; Start 02/20/18 at 09:00 Potassium Chloride (Klor-Con) 20 meq DAILY PO Last administered on 03/06/18at 08: 00; Start 02/20/18 at 09:00 Acetaminophen (Tylenol) 500 mg PRN Q6HRS PRN PO PAIN / TEMP; Start 02/19/18 at 19:15 Acetaminophen (Tylenol) 650 mg PRN Q6HRS PRN [place] PAIN / TEMP; Start 02/19/18 at 19:15 Aspirin (Children'S Aspirin) 81 mg DAILYWBKFT PO Last administered on 03/06/18 08:00; Start 02/20/18 at 08:00 Calcium/Vitamin D (Oscal D 500mg/ 200uts) 1 tab DAILYWBKFT PO Last administered on 03/06/18 07:59; Start 02/20/18 at 08:00 Acetaminophen/ Hydrocodone Bitart (Lortab 5/325) 1 tab PRN Q6HRS PRN PO PAIN; Start 02/20/18 at 00:00 Pantoprazole Sodium (Protonix) 40 mg DAILYAC PO Last administered on 03/06/18 08:00; Start 02/20/18 at 07:30 Topiramate (Topamax) 75 mg BID PO Last administered on 03/06/18 20:04; Start at 21:00 Sertraline HCl (Zoloft) 25 mg DAILY PO Last administered on 02/23/18 08:44; Start 02/21/18 at 09:00; Stop 02/24/18 at 08:01; Status DC Vitamin D (Vitamin D3) 50,000 unit WEEKLY PO Last administered on 02/28/18 08: 43; Start 02/21/18 at 19:00 Atorvastatin Calcium (Lipitor) 10 mg QHS PO Last administered on 03/06/18 20:04 ; Start 02/21/18 at 21:00 Mirtazapine (Remeron) 7.5 mg QHS PO Last administered on 03/06/18 20:04; Start 02/21/18 at 21:00 Sertraline HCl (Zoloft) 50 mg DAILY PO Last administered on 03/05/18 08:18; Start 02/23/18 at 09:00; Stop 03/05/18 at 19:07; Status DC Olanzapine (ZyPREXA ZYDIS) 2.5 mg PRN Q2HR PRN PO agitation/psychosis; Start at 15:45 Vitamin D (Vitamin D3) 50,000 unit WEEKLY PO ; Start 02/26/18 at 15:45; Stop at 18:41; Status DC Quetiapine Fumarate (SEROquel) 25 mg QHS PO Last administered on 03/02/18at 19:55 ; Start 03/01/18 at 21:00; Stop 03/02/18 at 21:59; Status DC Quetiapine Fumarate (SEROquel) 50 mg QHS PO Last administered on 03/06/18at 20:04 ; Start 03/03/18 at 21:00; Stop 03/08/18 at 23:00 Sertraline HCl (Zoloft) 75 mg DAILY PO Last administered on 03/06/18at 08:03; Start 03/06/18 at 09:00 Quetiapine Fumarate (SEROquel) 75 mg QHS PO ; Start 03/09/18 at 21:00 Active Scripts Active Reported Acetaminophen 500 Mg Tablet 500 Mg PO PRN Q6HRS PRN Acetaminophen Supp (Acetaminophen) 650 Mg Supp.rect 650 Mg RC PRN Q6HRS PRN [place] 5-325 Tablet (Hydrocodone Bit/Acetaminophen) 1 Each Tablet 1 Tab PO Q6HRS Klor-Con M20 (Potassium Chloride) 20 Meq Tab.er.prt 20 Meq PO DAILY Furosemide 20 Mg Tablet 20 Mg PO DAILY Lisinopril 20 Mg Tablet 20 Mg PO DAILY Calcium 500 + Vit D 400 Tablet (Calcium Carbonate/Vitamin D3) 1 Each Tablet 1 Each PO DAILY Aspirin 81 Mg Tab.chew 81 Mg PO DAILY Omeprazole 20 Mg Capsule.dr 20 Mg PO DAILY Topiramate 25 Mg Tablet 75 Mg PO BID I have reviewed the current psychotropics carefully including drug interactions. Risk benefit ratio favors no change other than as noted in my dictated progress note. Diagnosis: Problems: (1) Anxiety disorder (2) Dementia in Alzheimer's disease with delusions (3) Dementia in Alzheimer's disease with depression (4) Dementia, vascular, with delusions (5) Dementia, vascular, with depression (6) Impulse control disorder KARO SANTOS MD Mar 06, 2018 20:58
--- NOTE | 2018-03-06 21:19 | PN ---
DATE: 03/05/2018 This is a late entry for date of 03/05/2018 and covers the elements not covered in my initial note 03/05/2018. SUBJECTIVE: I met with the patient in the evening. Per nursing report, the patient is quite disorganized, delusional, believes she is and was due on the 16 of this month. She seems to have expressive aphasia per nursing observation. REVIEW OF SYSTEMS: No CV, , pulmonary, eye, ENT system symptoms on review. Reliability poor. MENTAL STATUS EXAM: Oriented to herself. Insight, judgment, recent and remote memory, attention, concentration, fund of knowledge poor, consistent with her diagnosis mentioned in my initial note. PLAN: Continue current psychotropics, increase Zoloft to 75 mg a day after she has been on 50 mg for 3 days. Continue Remeron, Seroquel, Topamax for now. MAN Michelle SANTOS MD DR: JERILYN/tommy JOB#: [id number] / [id number]
--- NOTE | 2018-03-06 21:59 | NUR ---
Nursing note: Assumed care of pt on patio, sitting quietly and pleasantly confused. Compliant w/assessment and meds. Pt kissed this nurses cheek after our conversation.
[2018-03-07 06:39] VITALS: BP 100/50
[2018-03-07] MEDS: POTASSIUM CHLORIDE 20 MEQ TABLET.ER. PO SCH (07:32)
[2018-03-07] MEDS: ASPIRIN 81 MG TAB.CHEW PO SCH (07:32)
[2018-03-07] MEDS: PANTOPRAZOLE 40 MG TABLET. PO SCH (07:32)
[2018-03-07] MEDS: CALCIUM CARB/VIT D3 500/200 TABLET PO SCH (07:32)
[2018-03-07] MEDS: CHOLECALCIFEROL (VITAMIN D3) 50,000 UNIT CAPSULE PO SCH (07:33)
[2018-03-07] MEDS: FUROSEMIDE 20 MG TABLET PO SCH (07:33)
[2018-03-07] MEDS: SERTRALINE 50 MG TABLET. PO SCH (07:33)
[2018-03-07] MEDS: TOPIRAMATE 25 MG TABLET. PO SCH ×2 (07:33→19:41)
[2018-03-07 07:43] VITALS: BP 154/69
[2018-03-07] MEDS: LISINOPRIL 20 MG TABLET PO SCH (07:44)
--- NOTE | 2018-03-07 07:55 | NUR ---
Nursing Note: Assumed care of pt in dining room. Pt calm, pleasantly confused, compliant w/ meds & asses, drank 8 ounces of water with meds.
--- NOTE | 2018-03-07 12:27 | PN ---
DATE: 03/06/2018 PSYCHIATRIC PROGRESS NOTE This late entry 03/06/2018 covers elements, not covered in my initial note of 03/06/2018. I met with the patient in the evening. The patient slept 6-1/4 hours previous evening, remains confused with intermittent hallucinations, talking to herself, singing in response to others around her when there was no one there. REVIEW OF SYSTEMS: No CV, , pulmonary, eye, ENT system symptoms on review. Reliability poor. MENTAL STATUS EXAM: Oriented to herself, pleasant, verbal. Insight, judgment, recent and remote memory, attention, concentration, fund of knowledge poor, consistent with her diagnosis mentioned in my initial note. PLAN: Increase Seroquel from 50 mg at bedtime to 75 mg at bedtime after she has been on the 50 mg for 5 days. Continue rest unchanged. MAN Michelle SANTOS MD DR: JERILYN/tommy JOB#: [id number] / [id number]
--- NOTE | 2018-03-07 15:00 | NUR ---
Behavior Intervention Response and Plan: BIRP Note: Behavior: Assumed Care of patient, patient located in Dining Room at shift change. Patient exhibited the following behavior Calm, Disorganized, Compliant. Brief assessment on rounds of vital signs, medication needs, lab studies, and pain. Treatment plan problems dementia w/ bd and fall risk. Intervention: Patient assessed and the following interventions initiated safety checks 15 Minute Checks Head to toe Assessment , Cognitive Assessment , Medications. Response: After interactions and interventions patient responded in the following manner, Calm , Disorganized ,Compliant. Continue to assess behaviors and condition will continue to monitor throughout the shift as needed. Patient educated on ADL's, and hand hygiene. 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 Continue to assess patient for changes in above assessment. Monitor for medication needs, pain, and safety concerns. Hourly rounding performed to ensure safe environment.
--- NOTE | 2018-03-07 15:00 | NUR ---
WEEKLY THERAPEUTIC RECREATION NOTE Date of Admission: 02/19/2018 Date of AT Assessment: 02/23/2018 Goal aimed: to increase engagement and socialization Initial Goal: Pt. will participate in at least three groups (besides coffee/orientation) before discharge. Weekly progress towards goal: on track group 1/3- ball bounce on Friday 02/23, group 2/3- horseshoes on 03/01 Group participation level: Minimal Behaviors observed: mostly pleasant, smiling, joking, around group usually and mostly willing to participate Plan: No change to goal
[2018-03-07 16:21] VITALS: BP 119/74
[2018-03-07] MEDS: ATORVASTATIN CALCIUM 10 MG TABLET. PO SCH (19:40)
[2018-03-07] MEDS: QUEtiapine 50 MG TABLET. PO SCH (19:40)
[2018-03-07] MEDS: MIRTAZAPINE 7.5 MG TABLET. PO SCH (19:40)
--- NOTE | 2018-03-07 20:48 | NUR ---
Nursing note: Assumed care of pt sitting quietly in dayroom. Pleasantly confused and talkative. Compliant w/ meds and assessment. Pt continues to wander through hallways.
--- NOTE | 2018-03-07 20:52 | PDOC ---
Exam Note: Sadiq Note: Please also refer to the separate dictated note~for this date of service dictated separately.~Patient seen individually. Discussed the patient with Nursing staff reviewed the chart.~Reviewed interim history and current functioning. Reviewed vital signs,~Labs/ Radiology~and current medications noted below. Continue current treatment with the changes noted in the dictated addendum note Assessment: Vital Signs: Vital Signs Date Time Temp Pulse Resp B/P (MAP) Pulse Ox O2 Delivery O2 Flow Rate FiO2 03/07/18 16:21 97.9 62 18 119/74 (89) 97 03/07/18 07:43 Room Air I&O Intake and Output 03/07/18 07:00 Intake Total 960 ml Balance 960 ml Intake Oral 960 ml Current Medications: Meds: Current Medications Acetaminophen (Tylenol) 650 mg PRN Q6HRS PRN PO PAIN / TEMP; Start 02/19/18 at 18:30; Stop 02/19/18 at 19:01; Status DC Multi-Ingredient Ointment (Analgesic [place]) 1 argelia PRN QID PRN TP MUSCLE PAIN; Start 02/19/18 at 18:30 Al Hydroxide/Mg Hydroxide (Mylanta Plus Xs) 15 ml PRN AFTMEALHC PRN PO DYSPEPSIA; Start 02/19/18 at 18:30 Magnesium Hydroxide (Milk Of Magnesia) 2,400 mg PRN QHS PRN PO CONSTIPATION Last administered on 03/06/18at 17:09; Start 02/19/18 at 18:30 Furosemide (Lasix) 20 mg DAILY PO Last administered on 03/07/18at 07:33; Start at 09:00 Lisinopril (Prinivil) 20 mg DAILY PO Last administered on 03/07/18at 07:44; Start 02/20/18 at 09:00 Potassium Chloride (Klor-Con) 20 meq DAILY PO Last administered on 03/07/18at 07: 32; Start 02/20/18 at 09:00 Acetaminophen (Tylenol) 500 mg PRN Q6HRS PRN PO PAIN / TEMP; Start 02/19/18 at 19:15 Acetaminophen (Tylenol) 650 mg PRN Q6HRS PRN [place] PAIN / TEMP; Start 02/19/18 at 19:15 Aspirin (Children'S Aspirin) 81 mg DAILYWBKFT PO Last administered on 03/07/18 07:32; Start 02/20/18 at 08:00 Calcium/Vitamin D (Oscal D 500mg/ 200uts) 1 tab DAILYWBKFT PO Last administered on 03/07/18 07:32; Start 02/20/18 at 08:00 Acetaminophen/ Hydrocodone Bitart (Lortab 5/325) 1 tab PRN Q6HRS PRN PO PAIN; Start 02/20/18 at 00:00 Pantoprazole Sodium (Protonix) 40 mg DAILYAC PO Last administered on 03/07/18 07:32; Start 02/20/18 at 07:30 Topiramate (Topamax) 75 mg BID PO Last administered on 03/07/18 19:41; Start at 21:00 Sertraline HCl (Zoloft) 25 mg DAILY PO Last administered on 02/23/18 08:44; Start 02/21/18 at 09:00; Stop 02/24/18 at 08:01; Status DC Vitamin D (Vitamin D3) 50,000 unit WEEKLY PO Last administered on 03/07/18 07: 33; Start 02/21/18 at 19:00 Atorvastatin Calcium (Lipitor) 10 mg QHS PO Last administered on 03/07/18 19:40 ; Start 02/21/18 at 21:00 Mirtazapine (Remeron) 7.5 mg QHS PO Last administered on 03/07/18 19:40; Start 02/21/18 at 21:00 Sertraline HCl (Zoloft) 50 mg DAILY PO Last administered on 03/05/18 08:18; Start 02/23/18 at 09:00; Stop 03/05/18 at 19:07; Status DC Olanzapine (ZyPREXA ZYDIS) 2.5 mg PRN Q2HR PRN PO agitation/psychosis; Start at 15:45 Vitamin D (Vitamin D3) 50,000 unit WEEKLY PO ; Start 02/26/18 at 15:45; Stop at 18:41; Status DC Quetiapine Fumarate (SEROquel) 25 mg QHS PO Last administered on 03/02/18 19:55 ; Start 03/01/18 at 21:00; Stop 03/02/18 at 21:59; Status DC Quetiapine Fumarate (SEROquel) 50 mg QHS PO Last administered on 03/07/18at 19:40 ; Start 03/03/18 at 21:00; Stop 03/08/18 at 23:00 Sertraline HCl (Zoloft) 75 mg DAILY PO Last administered on 03/07/18at 07:33; Start 03/06/18 at 09:00 Quetiapine Fumarate (SEROquel) 75 mg QHS PO ; Start 03/09/18 at 21:00 Active Scripts Active Reported Acetaminophen 500 Mg Tablet 500 Mg PO PRN Q6HRS PRN Acetaminophen Supp (Acetaminophen) 650 Mg Supp.rect 650 Mg RC PRN Q6HRS PRN [place] 5-325 Tablet (Hydrocodone Bit/Acetaminophen) 1 Each Tablet 1 Tab PO Q6HRS Klor-Con M20 (Potassium Chloride) 20 Meq Tab.er.prt 20 Meq PO DAILY Furosemide 20 Mg Tablet 20 Mg PO DAILY Lisinopril 20 Mg Tablet 20 Mg PO DAILY Calcium 500 + Vit D 400 Tablet (Calcium Carbonate/Vitamin D3) 1 Each Tablet 1 Each PO DAILY Aspirin 81 Mg Tab.chew 81 Mg PO DAILY Omeprazole 20 Mg Capsule.dr 20 Mg PO DAILY Topiramate 25 Mg Tablet 75 Mg PO BID I have reviewed the current psychotropics carefully including drug interactions. Risk benefit ratio favors no change other than as noted in my dictated progress note. Diagnosis: Problems: (1) Anxiety disorder (2) Dementia in Alzheimer's disease with delusions (3) Dementia in Alzheimer's disease with depression (4) Dementia, vascular, with delusions (5) Dementia, vascular, with depression (6) Impulse control disorder KARO SANTOS MD Mar 07, 2018 20:52
[2018-03-08 06:32] VITALS: BP 147/76
[2018-03-08] MEDS: PANTOPRAZOLE 40 MG TABLET. PO SCH (07:30)
[2018-03-08] MEDS: CALCIUM CARB/VIT D3 500/200 TABLET PO SCH (08:00)
[2018-03-08] MEDS: ASPIRIN 81 MG TAB.CHEW PO SCH (08:00)
[2018-03-08] MEDS: FUROSEMIDE 20 MG TABLET PO SCH (09:00)
[2018-03-08] MEDS: SERTRALINE 50 MG TABLET. PO SCH (09:00)
[2018-03-08] MEDS: POTASSIUM CHLORIDE 20 MEQ TABLET.ER. PO SCH (09:00)
[2018-03-08] MEDS: LISINOPRIL 20 MG TABLET PO SCH (09:00)
[2018-03-08] MEDS: TOPIRAMATE 25 MG TABLET. PO SCH ×2 (09:00→19:43)
--- NOTE | 2018-03-08 11:46 | NUR ---
Behavior Intervention Response and Plan: BIRP Note: Behavior: Assumed Care of patient, patient located in Day Room at shift change. Patient exhibited the following behavior Disorganized, Wandering, Cooperative. Brief assessment on rounds of vital signs, medication needs, lab studies, and pain. Treatment plan problems 1-2. Intervention: Patient assessed and the following interventions initiated safety checks 15 Minute Checks Cognitive Assessment , Head to toe Assessment , Medications. Response: After interactions and interventions patient responded in the following manner, Wandering , Disorganized ,Compliant. Continue to assess behaviors and condition will continue to monitor throughout the shift as needed. Patient educated on ADL's, and hand hygiene. Plan: Continue to monitor Master Treatment Plan for patient's progress toward short term goals of Decreased Agitation, Decreased Aggression, halfway goals to return to previous living setting vs placement. Continue to assess patient for changes in above assessment. Monitor for medication needs, pain, and safety concerns. Hourly rounding performed to ensure safe environment.
[2018-03-08 16:26] VITALS: BP 155/63
--- NOTE | 2018-03-08 17:49 | NUR ---
Pt very delusional in dayroom, arguing with another female pt. Pt stating that there are little boys playing in the street and that she needs to get to them. Redirection unsuccessful. SHARON Guardado administered in pt's dinner. Pt remains delusional in dining room, stating that she needs her car keys so she can leave. Will continue to monitor.
[2018-03-08] MEDS: ATORVASTATIN CALCIUM 10 MG TABLET. PO SCH (19:43)
[2018-03-08] MEDS: QUEtiapine 50 MG TABLET. PO SCH (19:43)
[2018-03-08] MEDS: MIRTAZAPINE 7.5 MG TABLET. PO SCH (19:43)
--- NOTE | 2018-03-08 21:00 | NUR ---
Behavior Intervention Response and Plan: BIRP Note: Behavior: Assumed Care of patient, patient located in Day Room at shift change. Patient exhibited the following behavior Calm, Cooperative, Withdrawn. Brief assessment on rounds of vital signs, medication needs, lab studies, and pain. Treatment plan problems 1-3. Intervention: Patient assessed and the following interventions initiated safety checks 15 Minute Checks Head to toe Assessment , Medications , ADL's. Response: After interactions and interventions patient responded in the following manner, Calm , Cooperative ,Compliant. Continue to assess behaviors and condition will continue to monitor throughout the shift as needed. Patient educated on ADL's, and hand hygiene. Plan: Continue to monitor Master Treatment Plan for patient's progress toward short term goals of Improved Mood, Medication Compliance, intermediate card tender goals to return to previous living setting vs placement. Continue to assess patient for changes in above assessment. Monitor for medication needs, pain, and safety concerns. Hourly rounding performed to ensure safe environment.
--- NOTE | 2018-03-08 22:31 | PDOC ---
Exam Note: Sadiq Note: Please also refer to the separate dictated note~for this date of service dictated separately.~Patient seen individually. Discussed the patient with Nursing staff reviewed the chart.~Reviewed interim history and current functioning. Reviewed vital signs,~Labs/ Radiology~and current medications noted below. Continue current treatment with the changes noted in the dictated addendum note Assessment: Vital Signs: Vital Signs Date Time Temp Pulse Resp B/P (MAP) Pulse Ox O2 Delivery O2 Flow Rate FiO2 03/08/18 16:26 97.1 58 16 155/63 (93) 99 Room Air I&O Intake and Output 03/08/18 07:00 Intake Total 920 ml Balance 920 ml Intake Oral 920 ml # Voids 1 Current Medications: Meds: Current Medications Acetaminophen (Tylenol) 650 mg PRN Q6HRS PRN PO PAIN / TEMP; Start 02/19/18 at 18:30; Stop 02/19/18 at 19:01; Status DC Multi-Ingredient Ointment (Analgesic [place]) 1 argelia PRN QID PRN TP MUSCLE PAIN; Start 02/19/18 at 18:30 Al Hydroxide/Mg Hydroxide (Mylanta Plus Xs) 15 ml PRN AFTMEALHC PRN PO DYSPEPSIA Last administered on 03/08/18at 05:05; Start 02/19/18 at 18:30 Magnesium Hydroxide (Milk Of Magnesia) 2,400 mg PRN QHS PRN PO CONSTIPATION Last administered on 03/06/18at 17:09; Start 02/19/18 at 18:30 Furosemide (Lasix) 20 mg DAILY PO Last administered on 03/08/18at 09:00; Start at 09:00 Lisinopril (Prinivil) 20 mg DAILY PO Last administered on 03/08/18at 09:00; Start 02/20/18 at 09:00 Potassium Chloride (Klor-Con) 20 meq DAILY PO Last administered on 03/08/18at 09: 00; Start 02/20/18 at 09:00 Acetaminophen (Tylenol) 500 mg PRN Q6HRS PRN PO PAIN / TEMP; Start 02/19/18 at 19:15 Acetaminophen (Tylenol) 650 mg PRN Q6HRS PRN [place] PAIN / TEMP; Start 02/19/18 at 19:15 Aspirin (Children'S Aspirin) 81 mg DAILYWBKFT PO Last administered on 03/08/18 08:00; Start 02/20/18 at 08:00 Calcium/Vitamin D (Oscal D 500mg/ 200uts) 1 tab DAILYWBKFT PO Last administered on 03/08/18 08:00; Start 02/20/18 at 08:00 Acetaminophen/ Hydrocodone Bitart (Lortab 5/325) 1 tab PRN Q6HRS PRN PO PAIN; Start 02/20/18 at 00:00 Pantoprazole Sodium (Protonix) 40 mg DAILYAC PO Last administered on 03/08/18 07:30; Start 02/20/18 at 07:30 Topiramate (Topamax) 75 mg BID PO Last administered on 03/08/18 19:43; Start at 21:00 Sertraline HCl (Zoloft) 25 mg DAILY PO Last administered on 02/23/18 08:44; Start 02/21/18 at 09:00; Stop 02/24/18 at 08:01; Status DC Vitamin D (Vitamin D3) 50,000 unit WEEKLY PO Last administered on 03/07/18 07: 33; Start 02/21/18 at 19:00 Atorvastatin Calcium (Lipitor) 10 mg QHS PO Last administered on 03/08/18 19:43 ; Start 02/21/18 at 21:00 Mirtazapine (Remeron) 7.5 mg QHS PO Last administered on 03/08/18 19:43; Start 02/21/18 at 21:00 Sertraline HCl (Zoloft) 50 mg DAILY PO Last administered on 03/05/18 08:18; Start 02/23/18 at 09:00; Stop 03/05/18 at 19:07; Status DC Olanzapine (ZyPREXA ZYDIS) 2.5 mg PRN Q2HR PRN PO agitation/psychosis; Start at 15:45 Vitamin D (Vitamin D3) 50,000 unit WEEKLY PO ; Start 02/26/18 at 15:45; Stop at 18:41; Status DC Quetiapine Fumarate (SEROquel) 25 mg QHS PO Last administered on 03/02/18at 19:55 ; Start 03/01/18 at 21:00; Stop 03/02/18 at 21:59; Status DC Quetiapine Fumarate (SEROquel) 50 mg QHS PO Last administered on 03/08/18at 19:43 ; Start 03/03/18 at 21:00; Stop 03/08/18 at 23:00 Sertraline HCl (Zoloft) 75 mg DAILY PO Last administered on 03/08/18at 09:00; Start 03/06/18 at 09:00 Quetiapine Fumarate (SEROquel) 75 mg QHS PO ; Start 03/09/18 at 21:00 Quetiapine Fumarate (SEROquel) 12.5 mg DAILY@1500 PO ; Start 03/09/18 at 15:00 Active Scripts Active Reported Acetaminophen 500 Mg Tablet 500 Mg PO PRN Q6HRS PRN Acetaminophen Supp (Acetaminophen) 650 Mg Supp.rect 650 Mg RC PRN Q6HRS PRN [place] 5-325 Tablet (Hydrocodone Bit/Acetaminophen) 1 Each Tablet 1 Tab PO Q6HRS Klor-Con M20 (Potassium Chloride) 20 Meq Tab.er.prt 20 Meq PO DAILY Furosemide 20 Mg Tablet 20 Mg PO DAILY Lisinopril 20 Mg Tablet 20 Mg PO DAILY Calcium 500 + Vit D 400 Tablet (Calcium Carbonate/Vitamin D3) 1 Each Tablet 1 Each PO DAILY Aspirin 81 Mg Tab.chew 81 Mg PO DAILY Omeprazole 20 Mg Capsule.dr 20 Mg PO DAILY Topiramate 25 Mg Tablet 75 Mg PO BID I have reviewed the current psychotropics carefully including drug interactions. Risk benefit ratio favors no change other than as noted in my dictated progress note. Diagnosis: Problems: (1) Anxiety disorder (2) Dementia in Alzheimer's disease with delusions (3) Dementia in Alzheimer's disease with depression (4) Dementia, vascular, with delusions (5) Dementia, vascular, with depression (6) Impulse control disorder KARO SANTOS MD Mar 08, 2018 22:31
[2018-03-09 05:52] VITALS: BP 163/91
[2018-03-09] MEDS: CALCIUM CARB/VIT D3 500/200 TABLET PO SCH (08:39)
[2018-03-09] MEDS: FUROSEMIDE 20 MG TABLET PO SCH (08:39)
[2018-03-09] MEDS: ASPIRIN 81 MG TAB.CHEW PO SCH (08:39)
[2018-03-09] MEDS: LISINOPRIL 20 MG TABLET PO SCH (08:39)
[2018-03-09] MEDS: PANTOPRAZOLE 40 MG TABLET. PO SCH (08:39)
[2018-03-09] MEDS: POTASSIUM CHLORIDE 20 MEQ TABLET.ER. PO SCH (08:39)
[2018-03-09] MEDS: TOPIRAMATE 25 MG TABLET. PO SCH ×2 (08:40→19:50)
[2018-03-09] MEDS: SERTRALINE 50 MG TABLET. PO SCH (08:40)
--- NOTE | 2018-03-09 11:00 | NUR ---
Behavior Intervention Response and Plan: BIRP Note: Behavior: Assumed Care of patient, patient located in Dining Room at shift change. Patient exhibited the following behavior Calm, Disorganized, Cooperative. Brief assessment on rounds of vital signs, medication needs, lab studies, and pain. Treatment plan problems 1-2. Intervention: Patient assessed and the following interventions initiated safety checks 15 Minute Checks Cognitive Assessment , Head to toe Assessment , Medications. Response: After interactions and interventions patient responded in the following manner, Cooperative , Wandering ,Disorganized. Continue to assess behaviors and condition will continue to monitor throughout the shift as needed. Patient educated on ADL's, and hand hygiene. Plan: Continue to monitor Master Treatment Plan for patient's progress toward short term goals of Decreased Agitation, Decreased Aggression, long-term goals to return to previous living setting vs placement. Continue to assess patient for changes in above assessment. Monitor for medication needs, pain, and safety concerns. Hourly rounding performed to ensure safe environment.
[2018-03-09] MEDS: QUEtiapine 25 MG TABLET. PO SCH ×2 (15:13→20:47)
--- NOTE | 2018-03-09 15:17 | NUR ---
SW contacted pt's to update on target dc date.
[2018-03-09 15:58] VITALS: BP 140/82
--- NOTE | 2018-03-09 16:56 | PN ---
DATE: 03/07/2018 PSYCHIATRIC PROGRESS NOTE This late entry 03/07/2018 covers elements, not covered in my initial note of 03/07/2018. I met with the patient in the evening. The patient remains confused, has been having intermittent hallucinations, seeing children in the hallway, slept 7-1/2 hours, compliant with medications. Fluids are being pushed. Appetite is fair. REVIEW OF SYSTEMS: No CV, , pulmonary, eye, ENT system symptoms on review. Reliability poor. MENTAL STATUS EXAM: Oriented to herself. Insight, judgment, recent and remote memory, attention, concentration, fund of knowledge poor, consistent with her diagnosis. Associations loose. LABORATORY DATA: Reviewed. IMPRESSION: Unchanged from initial note. PLAN: Continue current psychotropics, may need to increase Seroquel if psychotic symptoms, hallucinations persist. MAN Michelle SANTOS MD DR: JERILYN/tommy JOB#: [id number] / [id number]
[2018-03-09] MEDS: MIRTAZAPINE 7.5 MG TABLET. PO SCH (19:50)
[2018-03-09] MEDS: ATORVASTATIN CALCIUM 10 MG TABLET. PO SCH (19:51)
--- NOTE | 2018-03-09 20:36 | PN ---
DATE: 03/08/2018 PSYCHIATRIC PROGRESS NOTE This is a late entry for 03/08/2018, covers elements not covered in my initial note. SUBJECTIVE: The patient was staffed at a treatment team meeting in the morning, seen individually at length in the evening. long-term staff attended the conference. Reviewed the patient's history, diagnosis, progress at length. She has been confused, wandering. On the , she was noncompliant with blood draw. On the , she had some intermittent hallucinations. Plan was to increase the Seroquel, which will be done on the . REVIEW OF SYSTEMS: No CV, , pulmonary, eye, ENT system symptoms on review. Reliability poor. MENTAL STATUS EXAM: Oriented to herself. Insight, judgment, recent and remote memory, attention, concentration, fund of knowledge poor, consistent with her diagnosis from initial note. PLAN: Continue current psychotropics with increase of Seroquel 12.5 mg at 3 p.m. She was yelling, agitated at times, wanting her car keys around 4:30 p.m. MAN JarenTex SANTOS MD DR: JERILYN/tommy JOB#: [id number] / [id number]
--- NOTE | 2018-03-09 23:19 | PDOC ---
Exam Note: Sadiq Note: Please also refer to the separate dictated note~for this date of service dictated separately.~Patient seen individually. Discussed the patient with Nursing staff reviewed the chart.~Reviewed interim history and current functioning. Reviewed vital signs,~Labs/ Radiology~and current medications noted below. Continue current treatment with the changes noted in the dictated addendum note Assessment: Vital Signs: Vital Signs Date Time Temp Pulse Resp B/P (MAP) Pulse Ox O2 Delivery O2 Flow Rate FiO2 03/09/18 15:58 97.8 81 18 140/82 (101) 97 03/08/18 16:26 Room Air I&O Intake and Output 03/09/18 07:00 Intake Total 720 ml Balance 720 ml Intake Oral 720 ml Current Medications: Meds: Current Medications Acetaminophen (Tylenol) 650 mg PRN Q6HRS PRN PO PAIN / TEMP; Start 02/19/18 at 18:30; Stop 02/19/18 at 19:01; Status DC Multi-Ingredient Ointment (Analgesic [place]) 1 argelia PRN QID PRN TP MUSCLE PAIN; Start 02/19/18 at 18:30 Al Hydroxide/Mg Hydroxide (Mylanta Plus Xs) 15 ml PRN AFTMEALHC PRN PO DYSPEPSIA Last administered on 03/08/18at 05:05; Start 02/19/18 at 18:30 Magnesium Hydroxide (Milk Of Magnesia) 2,400 mg PRN QHS PRN PO CONSTIPATION Last administered on 03/06/18at 17:09; Start 02/19/18 at 18:30 Furosemide (Lasix) 20 mg DAILY PO Last administered on 03/09/18at 08:39; Start at 09:00 Lisinopril (Prinivil) 20 mg DAILY PO Last administered on 03/09/18at 08:39; Start 02/20/18 at 09:00 Potassium Chloride (Klor-Con) 20 meq DAILY PO Last administered on 03/09/18at 08: 39; Start 02/20/18 at 09:00 Acetaminophen (Tylenol) 500 mg PRN Q6HRS PRN PO PAIN / TEMP; Start 02/19/18 at 19:15 Acetaminophen (Tylenol) 650 mg PRN Q6HRS PRN [place] PAIN / TEMP; Start 02/19/18 at 19:15 Aspirin (Children'S Aspirin) 81 mg DAILYWBKFT PO Last administered on 03/09/18 08:39; Start 02/20/18 at 08:00 Calcium/Vitamin D (Oscal D 500mg/ 200uts) 1 tab DAILYWBKFT PO Last administered on 03/09/18 08:39; Start 02/20/18 at 08:00 Acetaminophen/ Hydrocodone Bitart (Lortab 5/325) 1 tab PRN Q6HRS PRN PO PAIN; Start 02/20/18 at 00:00 Pantoprazole Sodium (Protonix) 40 mg DAILYAC PO Last administered on 03/09/18 08:39; Start 02/20/18 at 07:30 Topiramate (Topamax) 75 mg BID PO Last administered on 03/09/18 19:50; Start at 21:00 Sertraline HCl (Zoloft) 25 mg DAILY PO Last administered on 02/23/18 08:44; Start 02/21/18 at 09:00; Stop 02/24/18 at 08:01; Status DC Vitamin D (Vitamin D3) 50,000 unit WEEKLY PO Last administered on 03/07/18 07: 33; Start 02/21/18 at 19:00 Atorvastatin Calcium (Lipitor) 10 mg QHS PO Last administered on 03/09/18 19:51 ; Start 02/21/18 at 21:00 Mirtazapine (Remeron) 7.5 mg QHS PO Last administered on 03/09/18 19:50; Start 02/21/18 at 21:00 Sertraline HCl (Zoloft) 50 mg DAILY PO Last administered on 03/05/18 08:18; Start 02/23/18 at 09:00; Stop 03/05/18 at 19:07; Status DC Olanzapine (ZyPREXA ZYDIS) 2.5 mg PRN Q2HR PRN PO agitation/psychosis; Start at 15:45 Vitamin D (Vitamin D3) 50,000 unit WEEKLY PO ; Start 02/26/18 at 15:45; Stop at 18:41; Status DC Quetiapine Fumarate (SEROquel) 25 mg QHS PO Last administered on 03/02/18at 19:55 ; Start 03/01/18 at 21:00; Stop 03/02/18 at 21:59; Status DC Quetiapine Fumarate (SEROquel) 50 mg QHS PO Last administered on 03/08/18at 19:43 ; Start 03/03/18 at 21:00; Stop 03/08/18 at 23:00; Status DC Sertraline HCl (Zoloft) 75 mg DAILY PO Last administered on 03/09/18at 08:40; Start 03/06/18 at 09:00 Quetiapine Fumarate (SEROquel) 75 mg QHS PO Last administered on 03/09/18at 20:47 ; Start 03/09/18 at 21:00 Quetiapine Fumarate (SEROquel) 12.5 mg DAILY@1500 PO Last administered on at 15:13; Start 03/09/18 at 15:00 Active Scripts Active Reported Acetaminophen 500 Mg Tablet 500 Mg PO PRN Q6HRS PRN Acetaminophen Supp (Acetaminophen) 650 Mg Supp.rect 650 Mg RC PRN Q6HRS PRN [place] 5-325 Tablet (Hydrocodone Bit/Acetaminophen) 1 Each Tablet 1 Tab PO Q6HRS Klor-Con M20 (Potassium Chloride) 20 Meq Tab.er.prt 20 Meq PO DAILY Furosemide 20 Mg Tablet 20 Mg PO DAILY Lisinopril 20 Mg Tablet 20 Mg PO DAILY Calcium 500 + Vit D 400 Tablet (Calcium Carbonate/Vitamin D3) 1 Each Tablet 1 Each PO DAILY Aspirin 81 Mg Tab.chew 81 Mg PO DAILY Omeprazole 20 Mg Capsule.dr 20 Mg PO DAILY Topiramate 25 Mg Tablet 75 Mg PO BID I have reviewed the current psychotropics carefully including drug interactions. Risk benefit ratio favors no change other than as noted in my dictated progress note. Diagnosis: Problems: (1) Anxiety disorder (2) Dementia in Alzheimer's disease with delusions (3) Dementia in Alzheimer's disease with depression (4) Dementia, vascular, with delusions (5) Dementia, vascular, with depression (6) Impulse control disorder KARO SANTOS MD Mar 09, 2018 23:18
--- NOTE | 2018-03-10 05:37 | NUR ---
Nursing Note Pt wandering the unit confused, visiting with peers. Pleasant and cooperative with staff. Med compliant no behaviors to speak of this pm.
[2018-03-10 06:02] VITALS: BP 96/61
[2018-03-10] MEDS: TOPIRAMATE 25 MG TABLET. PO SCH ×2 (08:40→20:13)
[2018-03-10] MEDS: SERTRALINE 50 MG TABLET. PO SCH (08:41)
[2018-03-10] MEDS: ASPIRIN 81 MG TAB.CHEW PO SCH (08:43)
[2018-03-10] MEDS: POTASSIUM CHLORIDE 20 MEQ TABLET.ER. PO SCH (08:43)
[2018-03-10] MEDS: FUROSEMIDE 20 MG TABLET PO SCH (08:43)
[2018-03-10] MEDS: PANTOPRAZOLE 40 MG TABLET. PO SCH (08:43)
[2018-03-10] MEDS: CALCIUM CARB/VIT D3 500/200 TABLET PO SCH (08:43)
[2018-03-10 08:45] VITALS: BP 152/65
[2018-03-10] MEDS: LISINOPRIL 20 MG TABLET PO SCH (08:46)
--- NOTE | 2018-03-10 13:19 | PN ---
DATE: 03/09/2018 PSYCHIATRIC PROGRESS NOTE This is a late entry 03/09/2018 covers elements not covered in my initial note 03/09/2018. SUBJECTIVE: I met with the patient in the evening. The patient has been compliant with medications, remains confused, cooperative, spending much time in the day room, calling someone's name, questionably hallucinating, but not agitated. REVIEW OF SYSTEMS: No CV, , pulmonary, eye, ENT system symptoms on review. Reliability poor. MENTAL STATUS EXAM: Oriented to herself. Insight, judgment, recent and remote memory, attention, concentration, fund of knowledge poor, consistent with her diagnosis mentioned in my initial note. IMPRESSION: Major neurocognitive disorder, Alzheimer, vascular with delusion, depression, behavioral disturbance. PLAN: Continue current psychotropics from initial note. Seroquel has been increased to 75 mg a day on 03/09/2018 and may need to increase further depending on her progress. KARO SANTOS MD DR: JERILYN/tommy JOB#: [id number] / [id number]
--- NOTE | 2018-03-10 15:00 | NUR ---
Nursing Note: Pt compliant w/ medications/asses, no negative behaviors this shift.
[2018-03-10] MEDS: QUEtiapine 25 MG TABLET. PO SCH ×2 (15:18→20:14)
[2018-03-10 16:32] VITALS: BP 118/50
[2018-03-10] MEDS: ATORVASTATIN CALCIUM 10 MG TABLET. PO SCH (20:14)
[2018-03-10] MEDS: MIRTAZAPINE 7.5 MG TABLET. PO SCH (20:14)
--- NOTE | 2018-03-11 01:20 | NUR ---
Nursing Note Pt wandering the unit confused, visiting with peers. Pleasant and cooperative with staff. Med compliant no behaviors to speak of this pm.
[2018-03-11 05:45] VITALS: BP 118/54
[2018-03-11] MEDS: TOPIRAMATE 25 MG TABLET. PO SCH ×2 (07:54→20:15)
[2018-03-11] MEDS: CALCIUM CARB/VIT D3 500/200 TABLET PO SCH (07:54)
[2018-03-11] MEDS: POTASSIUM CHLORIDE 20 MEQ TABLET.ER. PO SCH (07:55)
[2018-03-11] MEDS: ASPIRIN 81 MG TAB.CHEW PO SCH (07:55)
[2018-03-11] MEDS: PANTOPRAZOLE 40 MG TABLET. PO SCH (07:55)
[2018-03-11] MEDS: SERTRALINE 50 MG TABLET. PO SCH (07:55)
[2018-03-11] MEDS: FUROSEMIDE 20 MG TABLET PO SCH (07:55)
[2018-03-11 08:09] VITALS: BP 102/62
[2018-03-11] MEDS: LISINOPRIL 20 MG TABLET PO SCH (08:11)
--- NOTE | 2018-03-11 11:37 | NUR ---
Nursing note: Pt compliant w/ medication and asses this am, wandering the unit, interactive w/ peers.
[2018-03-11] MEDS: QUEtiapine 25 MG TABLET. PO SCH ×2 (15:04→20:16)
[2018-03-11 16:38] VITALS: BP 129/62
--- NOTE | 2018-03-11 18:48 | NUR ---
Nursing Note; Behavior Pt was in day room, holding hands with peer that was in a WC. Pt in WC slid to the floor causing pt to be pulled on top of pt that was in WC. Pt, Eden Mejia, did not suffer any injuries as she did not strike the floor but rather landed on top of other pt.
[2018-03-11] MEDS: ATORVASTATIN CALCIUM 10 MG TABLET. PO SCH (20:16)
[2018-03-11] MEDS: MIRTAZAPINE 7.5 MG TABLET. PO SCH (20:16)
--- NOTE | 2018-03-11 20:38 | PDOC ---
Exam Note: Sadiq Note: Late entry for date of service March 10, 2018. Please also refer to the separate dictated note~for this date of service dictated separately.~Patient seen individually. Discussed the patient with Nursing staff reviewed the chart.~ Reviewed interim history and current functioning. Reviewed vital signs,~Labs/ Radiology~and current medications noted below. Continue current treatment with the changes noted in the dictated addendum note Assessment: Vital Signs: VS - Last 72 Hours, by Label Date Time Temp Pulse Resp B/P (MAP) Pulse Ox O2 Delivery O2 Flow Rate FiO2 03/11/18 16:38 98.0 85 18 129/62 (84) 95 03/11/18 08:11 66 102/62 03/11/18 08:09 66 102/62 (75) Room Air 03/11/18 05:45 97.9 58 18 118/54 (75) 99 03/10/18 16:32 98.1 61 20 118/50 (72) 99 03/10/18 08:46 65 152/65 03/10/18 08:45 65 152/65 (94) Room Air 03/10/18 06:02 99.0 60 16 96/61 (73) 95 03/09/18 15:58 97.8 81 18 140/82 (101) 97 03/09/18 08:39 60 163/91 03/09/18 05:52 97.4 60 17 163/91 (115) 99 Vital Signs Date Time Temp Pulse Resp B/P (MAP) Pulse Ox O2 Delivery O2 Flow Rate FiO2 03/11/18 16:38 98.0 85 18 129/62 (84) 95 03/11/18 08:09 Room Air I&O Intake and Output 03/11/18 07:00 Intake Total 840 ml Balance 840 ml Intake Oral 840 ml Current Medications: Meds: Current Medications Acetaminophen (Tylenol) 650 mg PRN Q6HRS PRN PO PAIN / TEMP; Start 02/19/18 at 18:30; Stop 02/19/18 at 19:01; Status DC Multi-Ingredient Ointment (Analgesic [place]) 1 argelia PRN QID PRN TP MUSCLE PAIN; Start 02/19/18 at 18:30 Al Hydroxide/Mg Hydroxide (Mylanta Plus Xs) 15 ml PRN AFTMEALHC PRN PO DYSPEPSIA Last administered on 03/08/18 05:05; Start 02/19/18 at 18:30 Magnesium Hydroxide (Milk Of Magnesia) 2,400 mg PRN QHS PRN PO CONSTIPATION Last administered on 03/06/18 17:09; Start 02/19/18 at 18:30 Furosemide (Lasix) 20 mg DAILY PO Last administered on 03/11/18 07:55; Start 02/20/18 at 09:00 Lisinopril (Prinivil) 20 mg DAILY PO Last administered on 03/11/18 08:11; Start 02/20/18 at 09:00 Potassium Chloride (Klor-Con) 20 meq DAILY PO Last administered on 03/11/18 07 :55; Start 02/20/18 at 09:00 Acetaminophen (Tylenol) 500 mg PRN Q6HRS PRN PO PAIN / TEMP; Start 02/19/18 at 19:15 Acetaminophen (Tylenol) 650 mg PRN Q6HRS PRN [place] PAIN / TEMP; Start 02/19/18 at 19:15 Aspirin (Children'S Aspirin) 81 mg DAILYWBKFT PO Last administered on 07:55; Start 02/20/18 at 08:00 Calcium/Vitamin D (Oscal D 500mg/ 200uts) 1 tab DAILYWBKFT PO Last administered on 03/11/18 07:54; Start 02/20/18 at 08:00 Acetaminophen/ Hydrocodone Bitart (Lortab 5/325) 1 tab PRN Q6HRS PRN PO PAIN; Start 02/20/18 at 00:00 Pantoprazole Sodium (Protonix) 40 mg DAILYAC PO Last administered on 03/11/18 07:55; Start 02/20/18 at 07:30 Topiramate (Topamax) 75 mg BID PO Last administered on 03/11/18 20:15; Start 02/19/18 at 21:00 Sertraline HCl (Zoloft) 25 mg DAILY PO Last administered on 02/23/18 08:44; Start 02/21/18 at 09:00; Stop 02/24/18 at 08:01; Status DC Vitamin D (Vitamin D3) 50,000 unit WEEKLY PO Last administered on 03/07/18 07: 33; Start 02/21/18 at 19:00 Atorvastatin Calcium (Lipitor) 10 mg QHS PO Last administered on 03/11/18at 20: 16; Start 02/21/18 at 21:00 Mirtazapine (Remeron) 7.5 mg QHS PO Last administered on 03/11/18at 20:16; Start 02/21/18 at 21:00 Sertraline HCl (Zoloft) 50 mg DAILY PO Last administered on 03/05/18at 08:18; Start 02/23/18 at 09:00; Stop 03/05/18 at 19:07; Status DC Olanzapine (ZyPREXA ZYDIS) 2.5 mg PRN Q2HR PRN PO agitation/psychosis; Start at 15:45 Vitamin D (Vitamin D3) 50,000 unit WEEKLY PO ; Start 02/26/18 at 15:45; Stop at 18:41; Status DC Quetiapine Fumarate (SEROquel) 25 mg QHS PO Last administered on 03/02/18at 19:55 ; Start 03/01/18 at 21:00; Stop 03/02/18 at 21:59; Status DC Quetiapine Fumarate (SEROquel) 50 mg QHS PO Last administered on 03/08/18at 19:43 ; Start 03/03/18 at 21:00; Stop 03/08/18 at 23:00; Status DC Sertraline HCl (Zoloft) 75 mg DAILY PO Last administered on 03/11/18at 07:55; Start 03/06/18 at 09:00 Quetiapine Fumarate (SEROquel) 75 mg QHS PO Last administered on 03/11/18at 20: 16; Start 03/09/18 at 21:00 Quetiapine Fumarate (SEROquel) 12.5 mg DAILY@1500 PO Last administered on at 15:04; Start 03/09/18 at 15:00 Active Scripts Active Reported Acetaminophen 500 Mg Tablet 500 Mg PO PRN Q6HRS PRN Acetaminophen Supp (Acetaminophen) 650 Mg Supp.rect 650 Mg RC PRN Q6HRS PRN [place] 5-325 Tablet (Hydrocodone Bit/Acetaminophen) 1 Each Tablet 1 Tab PO Q6HRS Klor-Con M20 (Potassium Chloride) 20 Meq Tab.er.prt 20 Meq PO DAILY Furosemide 20 Mg Tablet 20 Mg PO DAILY Lisinopril 20 Mg Tablet 20 Mg PO DAILY Calcium 500 + Vit D 400 Tablet (Calcium Carbonate/Vitamin D3) 1 Each Tablet 1 Each PO DAILY Aspirin 81 Mg Tab.chew 81 Mg PO DAILY Omeprazole 20 Mg Capsule.dr 20 Mg PO DAILY Topiramate 25 Mg Tablet 75 Mg PO BID I have reviewed the current psychotropics carefully including drug interactions. Risk benefit ratio favors no change other than as noted in my dictated progress note. Diagnosis: Problems: (1) Anxiety disorder (2) Dementia in Alzheimer's disease with delusions (3) Dementia in Alzheimer's disease with depression (4) Dementia, vascular, with delusions (5) Dementia, vascular, with depression (6) Impulse control disorder KARO SANTOS MD Mar 11, 2018 20:38
--- NOTE | 2018-03-11 20:39 | PDOC ---
Exam Note: Sadiq Note: Please also refer to the separate dictated note~for this date of service dictated separately.~Patient seen individually. Discussed the patient with Nursing staff reviewed the chart.~Reviewed interim history and current functioning. Reviewed vital signs,~Labs/ Radiology~and current medications noted below. Continue current treatment with the changes noted in the dictated addendum note Assessment: Vital Signs: Vital Signs Date Time Temp Pulse Resp B/P (MAP) Pulse Ox O2 Delivery O2 Flow Rate FiO2 03/11/18 16:38 98.0 85 18 129/62 (84) 95 03/11/18 08:09 Room Air I&O Intake and Output 03/11/18 07:00 Intake Total 840 ml Balance 840 ml Intake Oral 840 ml Current Medications: Meds: Current Medications Acetaminophen (Tylenol) 650 mg PRN Q6HRS PRN PO PAIN / TEMP; Start 02/19/18 at 18:30; Stop 02/19/18 at 19:01; Status DC Multi-Ingredient Ointment (Analgesic [place]) 1 argelia PRN QID PRN TP MUSCLE PAIN; Start 02/19/18 at 18:30 Al Hydroxide/Mg Hydroxide (Mylanta Plus Xs) 15 ml PRN AFTMEALHC PRN PO DYSPEPSIA Last administered on 03/08/18at 05:05; Start 02/19/18 at 18:30 Magnesium Hydroxide (Milk Of Magnesia) 2,400 mg PRN QHS PRN PO CONSTIPATION Last administered on 03/06/18at 17:09; Start 02/19/18 at 18:30 Furosemide (Lasix) 20 mg DAILY PO Last administered on 03/11/18at 07:55; Start 02/20/18 at 09:00 Lisinopril (Prinivil) 20 mg DAILY PO Last administered on 03/11/18at 08:11; Start 02/20/18 at 09:00 Potassium Chloride (Klor-Con) 20 meq DAILY PO Last administered on 03/11/18at 07 :55; Start 02/20/18 at 09:00 Acetaminophen (Tylenol) 500 mg PRN Q6HRS PRN PO PAIN / TEMP; Start 02/19/18 at 19:15 Acetaminophen (Tylenol) 650 mg PRN Q6HRS PRN [place] PAIN / TEMP; Start 02/19/18 at 19:15 Aspirin (Children'S Aspirin) 81 mg DAILYWBKFT PO Last administered on 07:55; Start 02/20/18 at 08:00 Calcium/Vitamin D (Oscal D 500mg/ 200uts) 1 tab DAILYWBKFT PO Last administered on 03/11/18at 07:54; Start 02/20/18 at 08:00 Acetaminophen/ Hydrocodone Bitart (Lortab 5/325) 1 tab PRN Q6HRS PRN PO PAIN; Start 02/20/18 at 00:00 Pantoprazole Sodium (Protonix) 40 mg DAILYAC PO Last administered on 03/11/18 07:55; Start 02/20/18 at 07:30 Topiramate (Topamax) 75 mg BID PO Last administered on 03/11/18 20:15; Start 02/19/18 at 21:00 Sertraline HCl (Zoloft) 25 mg DAILY PO Last administered on 02/23/18at 08:44; Start 02/21/18 at 09:00; Stop 02/24/18 at 08:01; Status DC Vitamin D (Vitamin D3) 50,000 unit WEEKLY PO Last administered on 03/07/18 07: 33; Start 02/21/18 at 19:00 Atorvastatin Calcium (Lipitor) 10 mg QHS PO Last administered on 03/11/18 20: 16; Start 02/21/18 at 21:00 Mirtazapine (Remeron) 7.5 mg QHS PO Last administered on 03/11/18 20:16; Start 02/21/18 at 21:00 Sertraline HCl (Zoloft) 50 mg DAILY PO Last administered on 03/05/18 08:18; Start 02/23/18 at 09:00; Stop 03/05/18 at 19:07; Status DC Olanzapine (ZyPREXA ZYDIS) 2.5 mg PRN Q2HR PRN PO agitation/psychosis; Start at 15:45 Vitamin D (Vitamin D3) 50,000 unit WEEKLY PO ; Start 02/26/18 at 15:45; Stop at 18:41; Status DC Quetiapine Fumarate (SEROquel) 25 mg QHS PO Last administered on 03/02/18at 19:55 ; Start 03/01/18 at 21:00; Stop 03/02/18 at 21:59; Status DC Quetiapine Fumarate (SEROquel) 50 mg QHS PO Last administered on 03/08/18at 19:43 ; Start 03/03/18 at 21:00; Stop 03/08/18 at 23:00; Status DC Sertraline HCl (Zoloft) 75 mg DAILY PO Last administered on 03/11/18at 07:55; Start 03/06/18 at 09:00 Quetiapine Fumarate (SEROquel) 75 mg QHS PO Last administered on 03/11/18at 20: 16; Start 03/09/18 at 21:00 Quetiapine Fumarate (SEROquel) 12.5 mg DAILY@1500 PO Last administered on at 15:04; Start 03/09/18 at 15:00 Active Scripts Active Reported Acetaminophen 500 Mg Tablet 500 Mg PO PRN Q6HRS PRN Acetaminophen Supp (Acetaminophen) 650 Mg Supp.rect 650 Mg RC PRN Q6HRS PRN [place] 5-325 Tablet (Hydrocodone Bit/Acetaminophen) 1 Each Tablet 1 Tab PO Q6HRS Klor-Con M20 (Potassium Chloride) 20 Meq Tab.er.prt 20 Meq PO DAILY Furosemide 20 Mg Tablet 20 Mg PO DAILY Lisinopril 20 Mg Tablet 20 Mg PO DAILY Calcium 500 + Vit D 400 Tablet (Calcium Carbonate/Vitamin D3) 1 Each Tablet 1 Each PO DAILY Aspirin 81 Mg Tab.chew 81 Mg PO DAILY Omeprazole 20 Mg Capsule.dr 20 Mg PO DAILY Topiramate 25 Mg Tablet 75 Mg PO BID I have reviewed the current psychotropics carefully including drug interactions. Risk benefit ratio favors no change other than as noted in my dictated progress note. Diagnosis: Problems: (1) Anxiety disorder (2) Dementia in Alzheimer's disease with delusions (3) Dementia in Alzheimer's disease with depression (4) Dementia, vascular, with delusions (5) Dementia, vascular, with depression (6) Impulse control disorder KARO SANTOS MD Mar 11, 2018 20:39
--- NOTE | 2018-03-12 00:46 | NUR ---
Nursing Note Patient found in day room for shift assessment. Patient is alert and oriented to self only. Patient compliant with assessment and medications. patient took medications whole. Patient currently in bed sleeping.
[2018-03-12 06:35] VITALS: BP 117/78
[2018-03-12] MEDS: ASPIRIN 81 MG TAB.CHEW PO SCH (08:30)
[2018-03-12] MEDS: SERTRALINE 50 MG TABLET. PO SCH (08:30)
[2018-03-12] MEDS: PANTOPRAZOLE 40 MG TABLET. PO SCH (08:30)
[2018-03-12] MEDS: CALCIUM CARB/VIT D3 500/200 TABLET PO SCH (08:30)
[2018-03-12] MEDS: POTASSIUM CHLORIDE 20 MEQ TABLET.ER. PO SCH (08:30)
[2018-03-12] MEDS: FUROSEMIDE 20 MG TABLET PO SCH (08:30)
[2018-03-12] MEDS: LISINOPRIL 20 MG TABLET PO SCH (08:31)
[2018-03-12] MEDS: TOPIRAMATE 25 MG TABLET. PO SCH ×2 (08:32→19:58)
--- NOTE | 2018-03-12 12:00 | NUR ---
Pt in dining room eating lunch, stated that "something is messing with my feet." There is nothing at her feet. Will continue to monitor.
--- NOTE | 2018-03-12 12:35 | NUR ---
Behavior Intervention Response and Plan: BIRP Note: Behavior: Assumed Care of patient, patient located in Hallway at shift change. Patient exhibited the following behavior Wandering, Disorganized, Withdrawn. Brief assessment on rounds of vital signs, medication needs, lab studies, and pain. Treatment plan problems 1-2. Intervention: Patient assessed and the following interventions initiated safety checks 15 Minute Checks Cognitive Assessment , Head to toe Assessment , Medications. Response: After interactions and interventions patient responded in the following manner, Calm , Disorganized ,Cooperative. Continue to assess behaviors and condition will continue to monitor throughout the shift as needed. Patient educated on ADL's, and hand hygiene. Plan: Continue to monitor Master Treatment Plan for patient's progress toward short term goals of Decreased Agitation, Improved Mood, senior care goals to return to previous living setting vs placement. Continue to assess patient for changes in above assessment. Monitor for medication needs, pain, and safety concerns. Hourly rounding performed to ensure safe environment.
[2018-03-12] MEDS: QUEtiapine 25 MG TABLET. PO SCH ×2 (15:37→19:58)
[2018-03-12 16:09] VITALS: BP 154/76
[2018-03-12] MEDS ORDERED: traZODone 50 MG TABLET. PO PRN (18:30)
[2018-03-12] MEDS: MIRTAZAPINE 7.5 MG TABLET. PO SCH (19:57)
[2018-03-12] MEDS: ATORVASTATIN CALCIUM 10 MG TABLET. PO SCH (19:58)
--- NOTE | 2018-03-12 20:55 | PDOC ---
Exam Note: Sadiq Note: Please also refer to the separate dictated note~for this date of service dictated separately.~Patient seen individually. Discussed the patient with Nursing staff reviewed the chart.~Reviewed interim history and current functioning. Reviewed vital signs,~Labs/ Radiology~and current medications noted below. Continue current treatment with the changes noted in the dictated addendum note Assessment: Vital Signs: Vital Signs Date Time Temp Pulse Resp B/P (MAP) Pulse Ox O2 Delivery O2 Flow Rate FiO2 03/12/18 16:09 98.0 74 16 154/76 (102) 96 03/11/18 08:09 Room Air I&O Intake and Output 03/12/18 07:00 Intake Total 1205 ml Balance 1205 ml Intake Oral 1205 ml Current Medications: Meds: Current Medications Acetaminophen (Tylenol) 650 mg PRN Q6HRS PRN PO PAIN / TEMP; Start 02/19/18 at 18:30; Stop 02/19/18 at 19:01; Status DC Multi-Ingredient Ointment (Analgesic [place]) 1 argelia PRN QID PRN TP MUSCLE PAIN; Start 02/19/18 at 18:30 Al Hydroxide/Mg Hydroxide (Mylanta Plus Xs) 15 ml PRN AFTMEALHC PRN PO DYSPEPSIA Last administered on 03/08/18at 05:05; Start 02/19/18 at 18:30 Magnesium Hydroxide (Milk Of Magnesia) 2,400 mg PRN QHS PRN PO CONSTIPATION Last administered on 03/06/18at 17:09; Start 02/19/18 at 18:30 Furosemide (Lasix) 20 mg DAILY PO Last administered on 03/12/18at 08:30; Start 02/20/18 at 09:00 Lisinopril (Prinivil) 20 mg DAILY PO Last administered on 03/12/18at 08:31; Start 02/20/18 at 09:00 Potassium Chloride (Klor-Con) 20 meq DAILY PO Last administered on 03/12/18at 08 :30; Start 02/20/18 at 09:00 Acetaminophen (Tylenol) 500 mg PRN Q6HRS PRN PO PAIN / TEMP; Start 02/19/18 at 19:15 Acetaminophen (Tylenol) 650 mg PRN Q6HRS PRN [place] PAIN / TEMP; Start 02/19/18 at 19:15 Aspirin (Children'S Aspirin) 81 mg DAILYWBKFT PO Last administered on 08:30; Start 02/20/18 at 08:00 Calcium/Vitamin D (Oscal D 500mg/ 200uts) 1 tab DAILYWBKFT PO Last administered on 03/12/18 08:30; Start 02/20/18 at 08:00 Acetaminophen/ Hydrocodone Bitart (Lortab 5/325) 1 tab PRN Q6HRS PRN PO PAIN; Start 02/20/18 at 00:00 Pantoprazole Sodium (Protonix) 40 mg DAILYAC PO Last administered on 03/12/18 08:30; Start 02/20/18 at 07:30 Topiramate (Topamax) 75 mg BID PO Last administered on 03/12/18 19:58; Start 02/19/18 at 21:00 Sertraline HCl (Zoloft) 25 mg DAILY PO Last administered on 02/23/18 08:44; Start 02/21/18 at 09:00; Stop 02/24/18 at 08:01; Status DC Vitamin D (Vitamin D3) 50,000 unit WEEKLY PO Last administered on 03/07/18 07: 33; Start 02/21/18 at 19:00 Atorvastatin Calcium (Lipitor) 10 mg QHS PO Last administered on 03/12/18 19: 58; Start 02/21/18 at 21:00 Mirtazapine (Remeron) 7.5 mg QHS PO Last administered on 03/12/18 19:57; Start 02/21/18 at 21:00 Sertraline HCl (Zoloft) 50 mg DAILY PO Last administered on 03/05/18 08:18; Start 02/23/18 at 09:00; Stop 03/05/18 at 19:07; Status DC Olanzapine (ZyPREXA ZYDIS) 2.5 mg PRN Q2HR PRN PO agitation/psychosis; Start at 15:45 Vitamin D (Vitamin D3) 50,000 unit WEEKLY PO ; Start 02/26/18 at 15:45; Stop at 18:41; Status DC Quetiapine Fumarate (SEROquel) 25 mg QHS PO Last administered on 03/02/18at 19:55 ; Start 03/01/18 at 21:00; Stop 03/02/18 at 21:59; Status DC Quetiapine Fumarate (SEROquel) 50 mg QHS PO Last administered on 03/08/18at 19:43 ; Start 03/03/18 at 21:00; Stop 03/08/18 at 23:00; Status DC Sertraline HCl (Zoloft) 75 mg DAILY PO Last administered on 03/12/18at 08:30; Start 03/06/18 at 09:00 Quetiapine Fumarate (SEROquel) 75 mg QHS PO Last administered on 03/12/18at 19: 58; Start 03/09/18 at 21:00 Quetiapine Fumarate (SEROquel) 12.5 mg DAILY@1500 PO Last administered on at 15:37; Start 03/09/18 at 15:00 Trazodone HCl (Desyrel) 50 mg PRN QHS PRN PO INSOMNIA; Start 03/12/18 at 18:30 Active Scripts Active Reported Acetaminophen 500 Mg Tablet 500 Mg PO PRN Q6HRS PRN Acetaminophen Supp (Acetaminophen) 650 Mg Supp.rect 650 Mg RC PRN Q6HRS PRN [place] 5-325 Tablet (Hydrocodone Bit/Acetaminophen) 1 Each Tablet 1 Tab PO Q6HRS Klor-Con M20 (Potassium Chloride) 20 Meq Tab.er.prt 20 Meq PO DAILY Furosemide 20 Mg Tablet 20 Mg PO DAILY Lisinopril 20 Mg Tablet 20 Mg PO DAILY Calcium 500 + Vit D 400 Tablet (Calcium Carbonate/Vitamin D3) 1 Each Tablet 1 Each PO DAILY Aspirin 81 Mg Tab.chew 81 Mg PO DAILY Omeprazole 20 Mg Capsule.dr 20 Mg PO DAILY Topiramate 25 Mg Tablet 75 Mg PO BID I have reviewed the current psychotropics carefully including drug interactions. Risk benefit ratio favors no change other than as noted in my dictated progress note. Diagnosis: Problems: (1) Anxiety disorder (2) Dementia in Alzheimer's disease with delusions (3) Dementia in Alzheimer's disease with depression (4) Dementia, vascular, with delusions (5) Dementia, vascular, with depression (6) Impulse control disorder KARO SANTOS MD Mar 12, 2018 20:55
--- NOTE | 2018-03-12 21:00 | NUR ---
Nursing note: Assumed care of pt in hallway, wandering, confused, pleasant. She was compliant w/meds and assessment. Continued to wander.
--- NOTE | 2018-03-13 02:29 | PN ---
DATE: 03/11/2018 This late entry 03/11/2018 covers elements not covered in my initial note 03/11/2018. SUBJECTIVE: Met with the patient in the evening. The patient slept 6-3/4 hours previous evening, has been quite paranoid, psychotic, believes she is today and she is going to school and the mother is going to pick her up, and felt the year is 1939. She dropped herself out of her chair and fell on the floor. No injury noted in the evening. Undresses herself at times. REVIEW OF SYSTEMS: No CV, , pulmonary, eye, ENT system symptoms on review. Reliability poor. MENTAL STATUS EXAM: Oriented to herself. Insight, judgment, recent and remote memory, attention, concentration, fund of knowledge poor, consistent with her diagnosis from my initial note. PLAN: Continue current psychotropics, observe another day before adjusting. MAN Michelle SANTOS MD DR: JERILYN/tommy JOB#: [id number] / [id number]
[2018-03-13 05:55] VITALS: BP 142/61
[2018-03-13 07:21] LABS: BASO % 1 % (0-3); EOS # 0.3 x10^3/uL (0.0-0.7); EOS % 5 % (0-3); HEMATOCRIT 33.9 % (36.0-47.0); LYMPH # 2.2 x10^3/uL (1.0-4.8); LYMPH % 38 % (24-48); MEAN CORPUSCULAR HEMOGLOBIN 31 pg (25-35); MEAN CORPUSCULAR HGB CONC 32 g/dL (31-37); MEAN CORPUSCULAR VOLUME 96 fL (79-100); MONO # 0.7 x10^3/uL (0.0-1.1); MONO % 12 % (0-9); NEUT # 2.5 x10^3uL (1.8-7.7); NEUT % 44 % (31-73); PLATELET COUNT 140 x10^3/uL (140-400); RED BLOOD COUNT 3.54 x10^6/uL (3.50-5.40); RED CELL DISTRIBUTION WIDTH 14.5 % (11.5-14.5); WHITE BLOOD COUNT 5.7 x10^3/uL (4.0-11.0)
[2018-03-13 07:37] LABS: ALBUMIN 3.2 g/dL (3.4-5.0); ALBUMIN/GLOBULIN RATIO 0.9 (1.0-1.7); CALCIUM 8.8 mg/dL (8.5-10.1); CREATININE 1.1 mg/dL (0.6-1.0); GFR 48.2; TOTAL BILIRUBIN 0.2 mg/dL (0.2-1.0); TOTAL PROTEIN 6.7 g/dL (6.4-8.2)
[2018-03-13 08:35] LABS: POTASSIUM 4.3 mmol/L (3.5-5.1)
[2018-03-13] MEDS: TOPIRAMATE 25 MG TABLET. PO SCH ×2 (09:14→20:22)
[2018-03-13] MEDS: ASPIRIN 81 MG TAB.CHEW PO SCH (09:15)
[2018-03-13] MEDS: LISINOPRIL 20 MG TABLET PO SCH (09:15)
[2018-03-13] MEDS: SERTRALINE 50 MG TABLET. PO SCH (09:15)
[2018-03-13] MEDS: POTASSIUM CHLORIDE 20 MEQ TABLET.ER. PO SCH (09:15)
[2018-03-13] MEDS: FUROSEMIDE 20 MG TABLET PO SCH (09:15)
[2018-03-13] MEDS: CALCIUM CARB/VIT D3 500/200 TABLET PO SCH (09:15)
[2018-03-13] MEDS: PANTOPRAZOLE 40 MG TABLET. PO SCH (09:15)
--- NOTE | 2018-03-13 11:53 | NUR ---
Behavior Intervention Response and Plan: BIRP Note: Behavior: Assumed Care of patient, patient located in Hallway at shift change. Patient exhibited the following behavior Disorganized, Wandering, Cooperative. Brief assessment on rounds of vital signs, medication needs, lab studies, and pain. Treatment plan problems 1-2. Intervention: Patient assessed and the following interventions initiated safety checks 15 Minute Checks Cognitive Assessment , Head to toe Assessment , Medications. Response: After interactions and interventions patient responded in the following manner, Disorganized , Wandering ,Restless. Continue to assess behaviors and condition will continue to monitor throughout the shift as needed. Patient educated on ADL's, and hand hygiene. 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 Continue to assess patient for changes in above assessment. Monitor for medication needs, pain, and safety concerns. Hourly rounding performed to ensure safe environment.
--- NOTE | 2018-03-13 14:15 | PN ---
DATE: 03/10/2018 PSYCHIATRIC PROGRESS NOTE This is a late entry of 03/10/2018 covers elements from my initial note. SUBJECTIVE: I met with the patient in the evening. The patient remains confused, somewhat anxious, restless, and somewhat paranoid. No CV, , pulmonary, eye, ENT system symptoms on review. Reliability is poor. MENTAL STATUS EXAM: Oriented to herself. Insight, judgment, recent and remote memory, attention, concentration, fund of knowledge poor, consistent with her diagnosis from my initial note. PLAN: Continue current psychotropics, observe for the paranoia and may need to increase Seroquel at that stage. KARO SANTOS MD DR: JERILYN/tommy JOB#: [id number] / [id number]
[2018-03-13] MEDS: QUEtiapine 25 MG TABLET. PO SCH ×2 (16:50→20:22)
[2018-03-13 16:51] VITALS: BP 96/60
--- NOTE | 2018-03-13 20:14 | PDOC ---
Exam Note: Sadiq Note: Please also refer to the separate dictated note~for this date of service dictated separately.~Patient seen individually. Discussed the patient with Nursing staff reviewed the chart.~Reviewed interim history and current functioning. Reviewed vital signs,~Labs/ Radiology~and current medications noted below. Continue current treatment with the changes noted in the dictated addendum note Assessment: Vital Signs: Vital Signs Date Time Temp Pulse Resp B/P (MAP) Pulse Ox O2 Delivery O2 Flow Rate FiO2 03/13/18 16:51 97.3 67 22 96/60 (72) 98 Room Air I&O Intake and Output 03/13/18 07:00 Intake Total 720 ml Balance 720 ml Intake Oral 720 ml Labs: Laboratory Tests Test 03/13/18 06:58 White Blood Count 5.7 x10^3/uL (4.0-11.0) Red Blood Count 3.54 x10^6/uL (3.50-5.40) Hemoglobin 11.0 g/dL (12.0-15.5) L Hematocrit 33.9 % (36.0-47.0) L Mean Corpuscular Volume 96 fL (79-100) Mean Corpuscular Hemoglobin 31 pg (25-35) Mean Corpuscular Hemoglobin Concent 32 g/dL (31-37) Red Cell Distribution Width 14.5 % (11.5-14.5) Platelet Count 140 x10^3/uL (140-400) Neutrophils (%) (Auto) 44 % (31-73) Lymphocytes (%) (Auto) 38 % (24-48) Monocytes (%) (Auto) 12 % (0-9) H Eosinophils (%) (Auto) 5 % (0-3) H Basophils (%) (Auto) 1 % (0-3) Neutrophils # (Auto) 2.5 x10^3uL (1.8-7.7) Lymphocytes # (Auto) 2.2 x10^3/uL (1.0-4.8) Monocytes # (Auto) 0.7 x10^3/uL (0.0-1.1) Eosinophils # (Auto) 0.3 x10^3/uL (0.0-0.7) Basophils # (Auto) 0.0 x10^3/uL (0.0-0.2) Sodium Level 143 mmol/L (136-145) Potassium Level 4.3 mmol/L (3.5-5.1) Chloride Level 110 mmol/L (98-107) H Carbon Dioxide Level 24 mmol/L (21-32) Anion Gap 9 (6-14) Blood Urea Nitrogen 38 mg/dL (7-20) H Creatinine 1.1 mg/dL (0.6-1.0) H Estimated GFR (Cockcroft-Gault) 48.2 BUN/Creatinine Ratio 35 (6-20) H Glucose Level 93 mg/dL (70-99) Calcium Level 8.8 mg/dL (8.5-10.1) Total Bilirubin 0.2 mg/dL (0.2-1.0) Aspartate Amino Transferase (AST) 16 U/L (15-37) Alanine Aminotransferase (ALT) 16 U/L (14-59) Alkaline Phosphatase 66 U/L (46-116) Total Protein 6.7 g/dL (6.4-8.2) Albumin 3.2 g/dL (3.4-5.0) L Albumin/Globulin Ratio 0.9 (1.0-1.7) L Current Medications: Meds: Current Medications Acetaminophen (Tylenol) 650 mg PRN Q6HRS PRN PO PAIN / TEMP; Start 02/19/18 at 18:30; Stop 02/19/18 at 19:01; Status DC Multi-Ingredient Ointment (Analgesic [place]) 1 argelia PRN QID PRN TP MUSCLE PAIN; Start 02/19/18 at 18:30 Al Hydroxide/Mg Hydroxide (Mylanta Plus Xs) 15 ml PRN AFTMEALHC PRN PO DYSPEPSIA Last administered on 03/08/18at 05:05; Start 02/19/18 at 18:30 Magnesium Hydroxide (Milk Of Magnesia) 2,400 mg PRN QHS PRN PO CONSTIPATION Last administered on 03/06/18at 17:09; Start 02/19/18 at 18:30 Furosemide (Lasix) 20 mg DAILY PO Last administered on 03/13/18at 09:15; Start 02/20/18 at 09:00 Lisinopril (Prinivil) 20 mg DAILY PO Last administered on 03/13/18at 09:15; Start 02/20/18 at 09:00 Potassium Chloride (Klor-Con) 20 meq DAILY PO Last administered on 03/13/18 09 :15; Start 02/20/18 at 09:00 Acetaminophen (Tylenol) 500 mg PRN Q6HRS PRN PO PAIN / TEMP; Start 02/19/18 at 19:15 Acetaminophen (Tylenol) 650 mg PRN Q6HRS PRN [place] PAIN / TEMP; Start 02/19/18 at 19:15 Aspirin (Children'S Aspirin) 81 mg DAILYWBKFT PO Last administered on at 09:15; Start 02/20/18 at 08:00 Calcium/Vitamin D (Oscal D 500mg/ 200uts) 1 tab DAILYWBKFT PO Last administered on 03/13/18 09:15; Start 02/20/18 at 08:00 Acetaminophen/ Hydrocodone Bitart (Lortab 5/325) 1 tab PRN Q6HRS PRN PO PAIN; Start 02/20/18 at 00:00 Pantoprazole Sodium (Protonix) 40 mg DAILYAC PO Last administered on 03/13/18at 09:15; Start 02/20/18 at 07:30 Topiramate (Topamax) 75 mg BID PO Last administered on 03/13/18 09:14; Start 02/19/18 at 21:00 Sertraline HCl (Zoloft) 25 mg DAILY PO Last administered on 02/23/18at 08:44; Start 02/21/18 at 09:00; Stop 02/24/18 at 08:01; Status DC Vitamin D (Vitamin D3) 50,000 unit WEEKLY PO Last administered on 03/07/18at 07: 33; Start 02/21/18 at 19:00 Atorvastatin Calcium (Lipitor) 10 mg QHS PO Last administered on 03/12/18 19: 58; Start 02/21/18 at 21:00 Mirtazapine (Remeron) 7.5 mg QHS PO Last administered on 03/12/18 19:57; Start 02/21/18 at 21:00 Sertraline HCl (Zoloft) 50 mg DAILY PO Last administered on 03/05/18 08:18; Start 02/23/18 at 09:00; Stop 03/05/18 at 19:07; Status DC Olanzapine (ZyPREXA ZYDIS) 2.5 mg PRN Q2HR PRN PO agitation/psychosis; Start at 15:45 Vitamin D (Vitamin D3) 50,000 unit WEEKLY PO ; Start 02/26/18 at 15:45; Stop at 18:41; Status DC Quetiapine Fumarate (SEROquel) 25 mg QHS PO Last administered on 03/02/18at 19:55 ; Start 03/01/18 at 21:00; Stop 03/02/18 at 21:59; Status DC Quetiapine Fumarate (SEROquel) 50 mg QHS PO Last administered on 03/08/18at 19:43 ; Start 03/03/18 at 21:00; Stop 03/08/18 at 23:00; Status DC Sertraline HCl (Zoloft) 75 mg DAILY PO Last administered on 03/13/18at 09:15; Start 03/06/18 at 09:00 Quetiapine Fumarate (SEROquel) 75 mg QHS PO Last administered on 03/12/18at 19: 58; Start 03/09/18 at 21:00 Quetiapine Fumarate (SEROquel) 12.5 mg DAILY@1500 PO Last administered on at 16:50; Start 03/09/18 at 15:00 Trazodone HCl (Desyrel) 50 mg PRN QHS PRN PO INSOMNIA; Start 03/12/18 at 18:30 Active Scripts Active Reported Acetaminophen 500 Mg Tablet 500 Mg PO PRN Q6HRS PRN Acetaminophen Supp (Acetaminophen) 650 Mg Supp.rect 650 Mg RC PRN Q6HRS PRN [place] 5-325 Tablet (Hydrocodone Bit/Acetaminophen) 1 Each Tablet 1 Tab PO Q6HRS Klor-Con M20 (Potassium Chloride) 20 Meq Tab.er.prt 20 Meq PO DAILY Furosemide 20 Mg Tablet 20 Mg PO DAILY Lisinopril 20 Mg Tablet 20 Mg PO DAILY Calcium 500 + Vit D 400 Tablet (Calcium Carbonate/Vitamin D3) 1 Each Tablet 1 Each PO DAILY Aspirin 81 Mg Tab.chew 81 Mg PO DAILY Omeprazole 20 Mg Capsule.dr 20 Mg PO DAILY Topiramate 25 Mg Tablet 75 Mg PO BID I have reviewed the current psychotropics carefully including drug interactions. Risk benefit ratio favors no change other than as noted in my dictated progress note. Diagnosis: Problems: (1) Anxiety disorder (2) Dementia in Alzheimer's disease with delusions (3) Dementia in Alzheimer's disease with depression (4) Dementia, vascular, with delusions (5) Dementia, vascular, with depression (6) Impulse control disorder KARO SANTOS MD Mar 13, 2018 20:14
[2018-03-13] MEDS: MIRTAZAPINE 7.5 MG TABLET. PO SCH (20:22)
[2018-03-13] MEDS: ATORVASTATIN CALCIUM 10 MG TABLET. PO SCH (20:22)
--- NOTE | 2018-03-13 21:36 | NUR ---
Nursing note: Assumed care of pt in dayroom. She was pleasantly confused and compliant w/meds and assessment. She was happy and talkative. She admired the weather outside. She was wandering in dayroom.
--- NOTE | 2018-03-13 23:58 | PN ---
DATE: 03/12/2018 This late entry 03/12/2018 covers elements not covered in my initial note. SUBJECTIVE: I met with the patient in the evening. The patient slept 4-3/4 hours. She has had intermittent hallucinations during lunchtime. REVIEW OF SYSTEMS: No CV, , pulmonary, eye, ENT system symptoms on review. MENTAL STATUS EXAM: Oriented to herself. Insight, judgment, recent and remote memory, attention, concentration, fund of knowledge poor, consistent with her diagnosis mentioned in my initial note. PLAN: Add trazodone 50 mg at bedtime p.r.n. insomnia. Continue rest of the psychotropics. May need to increase the Seroquel if hallucinations persist. MAN Michelle SANTOS MD DR: JERILYN/tommy JOB#: [id number] / [id number]
[2018-03-14 06:18] VITALS: BP 155/56
[2018-03-14] MEDS: CALCIUM CARB/VIT D3 500/200 TABLET PO SCH (08:54)
[2018-03-14] MEDS: FUROSEMIDE 20 MG TABLET PO SCH (08:54)
[2018-03-14] MEDS: TOPIRAMATE 25 MG TABLET. PO SCH ×2 (08:54→20:04)
[2018-03-14] MEDS: SERTRALINE 50 MG TABLET. PO SCH (08:55)
[2018-03-14] MEDS: PANTOPRAZOLE 40 MG TABLET. PO SCH (08:55)
[2018-03-14] MEDS: ASPIRIN 81 MG TAB.CHEW PO SCH (08:55)
[2018-03-14] MEDS: POTASSIUM CHLORIDE 20 MEQ TABLET.ER. PO SCH (08:56)
[2018-03-14] MEDS: CHOLECALCIFEROL (VITAMIN D3) 50,000 UNIT CAPSULE PO SCH (08:56)
[2018-03-14] MEDS: LISINOPRIL 20 MG TABLET PO SCH (09:09)
--- NOTE | 2018-03-14 11:57 | NUR ---
Nursing Note: Pt calm, pleasantly confused, compliant w/ medication and asses, interactive w/ peers.
--- NOTE | 2018-03-14 11:59 | NUR ---
Behavior Intervention Response and Plan: BIRP Note: Behavior: Assumed Care of patient, patient located in Day Room at shift change. Patient exhibited the following behavior Calm, Disorganized, Cooperative. Brief assessment on rounds of vital signs, medication needs, lab studies, and pain. Treatment plan problems dementia w/ bd and fall risk. Intervention: Patient assessed and the following interventions initiated safety checks 15 Minute Checks Medications , Head to toe Assessment , Cognitive Assessment. Response: After interactions and interventions patient responded in the following manner, Calm , Interactive ,Compliant. Continue to assess behaviors and condition will continue to monitor throughout the shift as needed. Patient educated on ADL's, and hand hygiene. 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 Continue to assess patient for changes in above assessment. Monitor for medication needs, pain, and safety concerns. Hourly rounding performed to ensure safe environment.
--- NOTE | 2018-03-14 12:39 | NUR ---
SW faxed updated clinical notes to pt's facility and requested transport time for dc tomorrow.
--- NOTE | 2018-03-14 15:00 | NUR ---
WEEKLY THERAPEUTIC RECREATION NOTE Date of Admission: 02/19/2018 Date of AT Assessment: 02/23/2018 Goal aimed: to increase engagement and socialization Initial Goal: Pt. will participate in at least three groups (besides coffee/orientation) before discharge. Weekly progress towards goal: Achieved and exceeded goal: group 1/3- ball bounce on Friday 02/23, group 2/3- horseshoes on 03/01, group 3/3-dice game 03/13, group 4/3- music group Monday 03/12, group 5/3- exercise group Tuesday 03/13 and group 6/3 music group on this day Group participation level: Moderate Behaviors observed: usually pleasant and smiling, social with others, actively listens in groups and tried to contribute to the discussion Plan: change goal to: Pt. will participate in at least one group a day (beside coffee/orientation).
[2018-03-14] MEDS: QUEtiapine 25 MG TABLET. PO SCH ×2 (15:03→20:04)
[2018-03-14 16:29] VITALS: BP 107/61
[2018-03-14] MEDS: ATORVASTATIN CALCIUM 10 MG TABLET. PO SCH (20:03)
[2018-03-14] MEDS: MIRTAZAPINE 7.5 MG TABLET. PO SCH (20:04)
--- NOTE | 2018-03-14 20:18 | NUR ---
Nursing note: Assumed care of patient in her room, she had been wandering. Pleasantly confused. Compliant w/meds and assessment.
--- NOTE | 2018-03-14 21:00 | PDOC ---
Exam Note: Sadiq Note: Please also refer to the separate dictated note~for this date of service dictated separately.~Patient seen individually. Discussed the patient with Nursing staff reviewed the chart.~Reviewed interim history and current functioning. Reviewed vital signs,~Labs/ Radiology~and current medications noted below. Continue current treatment with the changes noted in the dictated addendum note Assessment: Vital Signs: Vital Signs Date Time Temp Pulse Resp B/P (MAP) Pulse Ox O2 Delivery O2 Flow Rate FiO2 03/14/18 16:29 98.0 70 18 107/61 (76) 97 03/13/18 16:51 Room Air I&O Intake and Output 03/14/18 07:00 Intake Total 1080 ml Balance 1080 ml Intake Oral 1080 ml Current Medications: Meds: Current Medications Acetaminophen (Tylenol) 650 mg PRN Q6HRS PRN PO PAIN / TEMP; Start 02/19/18 at 18:30; Stop 02/19/18 at 19:01; Status DC Multi-Ingredient Ointment (Analgesic [place]) 1 argelia PRN QID PRN TP MUSCLE PAIN; Start 02/19/18 at 18:30 Al Hydroxide/Mg Hydroxide (Mylanta Plus Xs) 15 ml PRN AFTMEALHC PRN PO DYSPEPSIA Last administered on 03/08/18at 05:05; Start 02/19/18 at 18:30 Magnesium Hydroxide (Milk Of Magnesia) 2,400 mg PRN QHS PRN PO CONSTIPATION Last administered on 03/06/18at 17:09; Start 02/19/18 at 18:30 Furosemide (Lasix) 20 mg DAILY PO Last administered on 03/14/18at 08:54; Start 02/20/18 at 09:00 Lisinopril (Prinivil) 20 mg DAILY PO Last administered on 03/14/18at 09:09; Start 02/20/18 at 09:00 Potassium Chloride (Klor-Con) 20 meq DAILY PO Last administered on 03/14/18at 08 :56; Start 02/20/18 at 09:00 Acetaminophen (Tylenol) 500 mg PRN Q6HRS PRN PO PAIN / TEMP; Start 02/19/18 at 19:15 Acetaminophen (Tylenol) 650 mg PRN Q6HRS PRN [place] PAIN / TEMP; Start 02/19/18 at 19:15 Aspirin (Children'S Aspirin) 81 mg DAILYWBKFT PO Last administered on 08:55; Start 02/20/18 at 08:00 Calcium/Vitamin D (Oscal D 500mg/ 200uts) 1 tab DAILYWBKFT PO Last administered on 03/14/18 08:54; Start 02/20/18 at 08:00 Acetaminophen/ Hydrocodone Bitart (Lortab 5/325) 1 tab PRN Q6HRS PRN PO PAIN; Start 02/20/18 at 00:00 Pantoprazole Sodium (Protonix) 40 mg DAILYAC PO Last administered on 03/14/18 08:55; Start 02/20/18 at 07:30 Topiramate (Topamax) 75 mg BID PO Last administered on 03/14/18 20:04; Start 02/19/18 at 21:00 Sertraline HCl (Zoloft) 25 mg DAILY PO Last administered on 02/23/18 08:44; Start 02/21/18 at 09:00; Stop 02/24/18 at 08:01; Status DC Vitamin D (Vitamin D3) 50,000 unit WEEKLY PO Last administered on 03/14/18 08: 56; Start 02/21/18 at 19:00 Atorvastatin Calcium (Lipitor) 10 mg QHS PO Last administered on 03/14/18 20: 03; Start 02/21/18 at 21:00 Mirtazapine (Remeron) 7.5 mg QHS PO Last administered on 03/14/18 20:04; Start 02/21/18 at 21:00 Sertraline HCl (Zoloft) 50 mg DAILY PO Last administered on 03/05/18 08:18; Start 02/23/18 at 09:00; Stop 03/05/18 at 19:07; Status DC Olanzapine (ZyPREXA ZYDIS) 2.5 mg PRN Q2HR PRN PO agitation/psychosis; Start at 15:45 Vitamin D (Vitamin D3) 50,000 unit WEEKLY PO ; Start 02/26/18 at 15:45; Stop at 18:41; Status DC Quetiapine Fumarate (SEROquel) 25 mg QHS PO Last administered on 03/02/18at 19:55 ; Start 03/01/18 at 21:00; Stop 03/02/18 at 21:59; Status DC Quetiapine Fumarate (SEROquel) 50 mg QHS PO Last administered on 03/08/18at 19:43 ; Start 03/03/18 at 21:00; Stop 03/08/18 at 23:00; Status DC Sertraline HCl (Zoloft) 75 mg DAILY PO Last administered on 03/14/18at 08:55; Start 03/06/18 at 09:00 Quetiapine Fumarate (SEROquel) 75 mg QHS PO Last administered on 03/14/18at 20: 04; Start 03/09/18 at 21:00 Quetiapine Fumarate (SEROquel) 12.5 mg DAILY@1500 PO Last administered on at 15:03; Start 03/09/18 at 15:00 Trazodone HCl (Desyrel) 50 mg PRN QHS PRN PO INSOMNIA; Start 03/12/18 at 18:30 Active Scripts Active Reported Acetaminophen 500 Mg Tablet 500 Mg PO PRN Q6HRS PRN Acetaminophen Supp (Acetaminophen) 650 Mg Supp.rect 650 Mg RC PRN Q6HRS PRN [place] 5-325 Tablet (Hydrocodone Bit/Acetaminophen) 1 Each Tablet 1 Tab PO Q6HRS Klor-Con M20 (Potassium Chloride) 20 Meq Tab.er.prt 20 Meq PO DAILY Furosemide 20 Mg Tablet 20 Mg PO DAILY Lisinopril 20 Mg Tablet 20 Mg PO DAILY Calcium 500 + Vit D 400 Tablet (Calcium Carbonate/Vitamin D3) 1 Each Tablet 1 Each PO DAILY Aspirin 81 Mg Tab.chew 81 Mg PO DAILY Omeprazole 20 Mg Capsule.dr 20 Mg PO DAILY Topiramate 25 Mg Tablet 75 Mg PO BID I have reviewed the current psychotropics carefully including drug interactions. Risk benefit ratio favors no change other than as noted in my dictated progress note. Diagnosis: Problems: (1) Anxiety disorder (2) Dementia in Alzheimer's disease with delusions (3) Dementia in Alzheimer's disease with depression (4) Dementia, vascular, with delusions (5) Dementia, vascular, with depression (6) Impulse control disorder KARO SANTOS MD Mar 14, 2018 21:00
--- NOTE | 2018-03-14 21:52 | PN ---
DATE: 03/13/2018 PSYCHIATRIC PROGRESS NOTE This is a late entry 03/13/2018 covers elements not covered in my initial note 03/13/2018. SUBJECTIVE: I met with the patient in the evening. The patient remains confused, takes her medications whole, slept 5-3/4 hours, was hallucinating earlier in the day. REVIEW OF SYSTEMS: No CV, , pulmonary, eye, ENT system symptoms on review. Reliability poor. MENTAL STATUS EXAM: Oriented to herself. Insight, judgment, recent and remote memory, attention, concentration, fund of knowledge poor, consistent with her diagnosis. Otherwise, pleasant, smiling as I met with her, oblivious of her surroundings. LABORATORY DATA: Reviewed. IMPRESSION: Unchanged from initial note. PLAN: Continue psychotropics from my initial note. MAN Michelle SANTOS MD DR: JERILYN/tommy JOB#: [id number] / [id number]
[2018-03-14] MEDS ORDERED: ATOR10TA60 PO (22:37)
[2018-03-14] MEDS ORDERED: PANT40TA5 PO (22:43)
[2018-03-14] MEDS ORDERED: CHOL500050 PO (22:45)
[2018-03-14] MEDS ORDERED: MAGN2400 PO (22:46)
[2018-03-14] MEDS ORDERED: METH29OI TP (22:46)
[2018-03-14] MEDS ORDERED: MIRT15TA3 PO (22:47)
[2018-03-14] MEDS ORDERED: OLAN5TAB5 PO (22:50)
[2018-03-14] MEDS ORDERED: QUET50TA5 PO (22:51)
[2018-03-14] MEDS ORDERED: QUET25TA5 PO (22:53)
[2018-03-14] MEDS ORDERED: SERT25TA4 PO (22:54)
[2018-03-14] MEDS ORDERED: TRAZ50TA15 PO (22:55)
[2018-03-15 05:56] VITALS: BP 177/80
--- NOTE | 2018-03-15 07:41 | NUR ---
[facility] Social Work Discharge Planning Form Patient Name POONAM SAGASTUME Admit Date: 02/19/18 DISCHARGE PLAN Discharge Destination: return to [facility] Transportation: facility to [facility] 03/15/18 DISCHARGE TO FACILITY Facility: [facility] Address: [facility] [place] [address] Contact Name: PCP: at facility w/in 7-10 days of dc Psychiatrist: at facility w/in 7-10 days of dc
[2018-03-15] MEDS: FUROSEMIDE 20 MG TABLET PO SCH (09:27)
[2018-03-15] MEDS: CALCIUM CARB/VIT D3 500/200 TABLET PO SCH (09:27)
[2018-03-15] MEDS: SERTRALINE 50 MG TABLET. PO SCH (09:27)
[2018-03-15] MEDS: ASPIRIN 81 MG TAB.CHEW PO SCH (09:28)
[2018-03-15] MEDS: POTASSIUM CHLORIDE 20 MEQ TABLET.ER. PO SCH (09:28)
[2018-03-15] MEDS: PANTOPRAZOLE 40 MG TABLET. PO SCH (09:28)
[2018-03-15] MEDS: LISINOPRIL 20 MG TABLET PO SCH (09:28)
[2018-03-15] MEDS: TOPIRAMATE 25 MG TABLET. PO SCH (09:28)
--- NOTE | 2018-03-15 10:16 | NUR ---
patient in bed, up and compliant with medication. Complaining of left leg pain, assessed site, no redness/warmness noted. PRN hydrocodone given per order for pain, will continue to monitor.
--- NOTE | 2018-03-15 11:15 | PDOC ---
Exam Note: Sadiq Note: Please also refer to the separate dictated note~for this date of service dictated separately.~Patient seen individually. Discussed the patient with Nursing staff reviewed the chart.~Reviewed interim history and current functioning. Reviewed vital signs,~Labs/ Radiology~and current medications noted below. Continue current treatment with the changes noted in the dictated addendum note Assessment: Vital Signs: Vital Signs Date Time Temp Pulse Resp B/P (MAP) Pulse Ox O2 Delivery O2 Flow Rate FiO2 03/15/18 09:28 57 177/80 03/15/18 05:56 97.5 19 100 03/13/18 16:51 Room Air I&O Intake and Output 03/15/18 07:00 Intake Total 1200 ml Balance 1200 ml Intake Oral 1200 ml Current Medications: Meds: Current Medications Acetaminophen (Tylenol) 650 mg PRN Q6HRS PRN PO PAIN / TEMP; Start 02/19/18 at 18:30; Stop 02/19/18 at 19:01; Status DC Multi-Ingredient Ointment (Analgesic [place]) 1 lyn PRN QID PRN TP MUSCLE PAIN; Start 02/19/18 at 18:30 Al Hydroxide/Mg Hydroxide (Mylanta Plus Xs) 15 ml PRN AFTMEALHC PRN PO DYSPEPSIA Last administered on 03/08/18at 05:05; Start 02/19/18 at 18:30 Magnesium Hydroxide (Milk Of Magnesia) 2,400 mg PRN QHS PRN PO CONSTIPATION Last administered on 03/06/18at 17:09; Start 02/19/18 at 18:30 Furosemide (Lasix) 20 mg DAILY PO Last administered on 03/15/18at 09:27; Start 02/20/18 at 09:00 Lisinopril (Prinivil) 20 mg DAILY PO Last administered on 03/15/18at 09:28; Start 02/20/18 at 09:00 Potassium Chloride (Klor-Con) 20 meq DAILY PO Last administered on 03/15/18at 09 :28; Start 02/20/18 at 09:00 Acetaminophen (Tylenol) 500 mg PRN Q6HRS PRN PO PAIN / TEMP; Start 02/19/18 at 19:15 Acetaminophen (Tylenol) 650 mg PRN Q6HRS PRN VA PAIN / TEMP; Start 02/19/18 at 19:15 Aspirin (Children'S Aspirin) 81 mg DAILYWBKFT PO Last administered on 09:28; Start 02/20/18 at 08:00 Calcium/Vitamin D (Oscal D 500mg/ 200uts) 1 tab DAILYWBKFT PO Last administered on 03/15/18 09:27; Start 02/20/18 at 08:00 Acetaminophen/ Hydrocodone Bitart (Lortab 5/325) 1 tab PRN Q6HRS PRN PO PAIN Last administered on 03/15/18 10:15; Start 02/20/18 at 00:00 Pantoprazole Sodium (Protonix) 40 mg DAILYAC PO Last administered on 03/15/18 09:28; Start 02/20/18 at 07:30 Topiramate (Topamax) 75 mg BID PO Last administered on 03/15/18 09:28; Start 02/19/18 at 21:00 Sertraline HCl (Zoloft) 25 mg DAILY PO Last administered on 02/23/18 08:44; Start 02/21/18 at 09:00; Stop 02/24/18 at 08:01; Status DC Vitamin D (Vitamin D3) 50,000 unit WEEKLY PO Last administered on 03/14/18 08: 56; Start 02/21/18 at 19:00 Atorvastatin Calcium (Lipitor) 10 mg QHS PO Last administered on 03/14/18 20: 03; Start 02/21/18 at 21:00 Mirtazapine (Remeron) 7.5 mg QHS PO Last administered on 03/14/18 20:04; Start 02/21/18 at 21:00 Sertraline HCl (Zoloft) 50 mg DAILY PO Last administered on 03/05/18 08:18; Start 02/23/18 at 09:00; Stop 03/05/18 at 19:07; Status DC Olanzapine (ZyPREXA ZYDIS) 2.5 mg PRN Q2HR PRN PO agitation/psychosis; Start at 15:45 Vitamin D (Vitamin D3) 50,000 unit WEEKLY PO ; Start 02/26/18 at 15:45; Stop at 18:41; Status DC Quetiapine Fumarate (SEROquel) 25 mg QHS PO Last administered on 03/02/18at 19:55 ; Start 03/01/18 at 21:00; Stop 03/02/18 at 21:59; Status DC Quetiapine Fumarate (SEROquel) 50 mg QHS PO Last administered on 03/08/18at 19:43 ; Start 03/03/18 at 21:00; Stop 03/08/18 at 23:00; Status DC Sertraline HCl (Zoloft) 75 mg DAILY PO Last administered on 03/15/18at 09:27; Start 03/06/18 at 09:00 Quetiapine Fumarate (SEROquel) 75 mg QHS PO Last administered on 03/14/18at 20: 04; Start 03/09/18 at 21:00 Quetiapine Fumarate (SEROquel) 12.5 mg DAILY@1500 PO Last administered on at 15:03; Start 03/09/18 at 15:00 Trazodone HCl (Desyrel) 50 mg PRN QHS PRN PO INSOMNIA; Start 03/12/18 at 18:30 Active Scripts Active Reported Trazodone Hcl 50 Mg Tablet 50 Mg PO PRN QHS PRN Sertraline Hcl 25 Mg Tablet 75 Mg PO DAILY Seroquel (Quetiapine Fumarate) 25 Mg Tablet 12.5 Mg PO DAILY15 (DAILY @1500 Seroquel (Quetiapine Fumarate) 50 Mg Tablet 75 Mg PO QHS Zyprexa Zydis (Olanzapine) 5 Mg Tab.rapdis 2.5 Mg PO PRN Q2HR PRN Mirtazapine 15 Mg Tablet 7.5 Mg PO QHS Analgesic [place] (Methyl Salicylate/Menthol) 28 Gm Oint...g. 1 Lyn TP PRN QID PRN Milk Of Magnesia (Magnesium Hydroxide) 2,400 Mg/10 Ml Oral.susp 2,400 Mg PO PRN QHS PRN Vitamin D3 (Cholecalciferol (Vitamin D3)) 50,000 Unit Capsule 50,000 Unit PO WEEKLY Pantoprazole Sodium 40 Mg Tablet.dr 40 Mg PO DAILY Atorvastatin Calcium 10 Mg Tablet 10 Mg PO QHS Acetaminophen 500 Mg Tablet 500 Mg PO PRN Q6HRS PRN Klor-Con M20 (Potassium Chloride) 20 Meq Tab.er.prt 20 Meq PO DAILY Furosemide 20 Mg Tablet 20 Mg PO DAILY Lisinopril 20 Mg Tablet 20 Mg PO DAILY Calcium 500 + Vit D 400 Tablet (Calcium Carbonate/Vitamin D3) 1 Each Tablet 1 Each PO DAILY Aspirin 81 Mg Tab.chew 81 Mg PO DAILY Topiramate 25 Mg Tablet 75 Mg PO BID I have reviewed the current psychotropics carefully including drug interactions. Risk benefit ratio favors no change other than as noted in my dictated progress note. Diagnosis: Problems: (1) Impulse control disorder (2) Dementia, vascular, with depression (3) Dementia, vascular, with delusions (4) Dementia in Alzheimer's disease with depression (5) Dementia in Alzheimer's disease with delusions (6) Anxiety disorder KARO SANTOS MD Mar 15, 2018 11:15
[2018-03-15] MEDS: QUEtiapine 25 MG TABLET. PO SCH (15:43)
[2018-03-15 16:53] VITALS: BP 120/65
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
--- NOTE | 2018-03-15 18:53 | NUR ---
Transition Record was faxed to follow-up provider with the following elements: Reason for admission, procedures, tests, principal diagnosis, pending studies, patient instructions, 24/04 contact information for unit, phone number to obtain pending test results, plan for follow-up care, physician follow-up, advanced directive information, and medication list with dose, duration and instructions. This information was included in the following documents: History and physical, lab results, study results, progress notes, social work planning form, DC instruction form, patient visit summary, and medication reconciliation form. Date & time record faxed: 03/15/18 [id number] Record faxed to: [facility] Record discussed with/ report given to: Bella
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
--- NOTE | 2018-03-17 08:16 | PN ---
DATE: 03/14/2018 This is a late entry for 03/14/2018 and covers elements not covered in my initial note. SUBJECTIVE: I met with the patient in the evening. The patient slept 6-3/4 hours, confused, calm, smiling compliant with medications. REVIEW OF SYSTEMS: No CV, , pulmonary, eye system symptoms on review. MENTAL STATUS EXAM: Oriented to herself. Insight, judgment, recent and remote memory, attention, concentration, fund of knowledge poor, consistent with her diagnosis as mentioned in my initial note. PLAN: No change from initial note. MAN Michelle SANTOS MD DR: JERILYN/tommy JOB#: [id number] / [id number]
== END 2018-03-15 18:55 | disposition home or self-care (01) | DRG 57 ==
LOC: GEROPSY 17:43
PROVIDERS: ADMIT Psychiatry & Neurology Psychiatry; ATTEND Psychiatry & Neurology Psychiatry
DX: G30.9 Alzheimer's disease, unspecified (principal); F01.51 Vascular dementia, unspecified severity, with behavioral disturbance; F02.81 Dementia in other diseases classified elsewhere, unspecified severity, with behavioral disturbance; R47.01 Aphasia; E78.5 Hyperlipidemia, unspecified; F63.9 Impulse disorder, unspecified; F32.9 Major depressive disorder, single episode, unspecified; F41.9 Anxiety disorder, unspecified; I10 Essential (primary) hypertension; M19.90 Unspecified osteoarthritis, unspecified site; K21.9 Gastro-esophageal reflux disease without esophagitis; G47.00 Insomnia, unspecified; Z66 Do not resuscitate; Z91.19 Patient's noncompliance with other medical treatment and regimen; Z88.8 Allergy status to other drugs, medicaments and biological substances; Z79.899 Other long term (current) drug therapy
CPT/HCPCS: 36415; 80053; 80061; 81001; 82306; 82607; 83036; 83540; 83550; 83735; 84436; 84443; 84480; 85025; 86593